=== PATIENT | female | born 1960 | race Caucasian/White ===

== ENCOUNTER 2016-05-30 16:26 | Inpatient (IN) | payer MEDICAID ==
[~2016-05-30] VITALS: Ht 157.5 cm; Wt 76.2 kg
[~2016-05-30 16:26] MED LIST: ACHD5005 PO; ALBUNEBRX NEB; ASP81CT PO; ASP81TEC PO; ATOR20TA66 PO; ATOR40TA70 PO; Aspirin PO; BUDE6HFA IH; BUSP15TA60 PO; CITA20TA7 PO; CLON0.1T PO; CLOP75TA28 PO; DICY10CA12 PO; DOCU-143 PO; ESZO1TAB11 PO; GABA-488 PO; GBPN100C PO; GLYB5TAB6 PO; HYDR-2856 PO; HYDR-34 PO; HYOS0.1216 PO; IBP800T PO; IBUP800T26 PO; INSU100I17 SQ; INSU300I SC; LEVE1U SQ; LEVO500T69 PO; LISI-594 PO; LORA10TA7 PO; LOVA20TA2 PO; MAGN400T39 PO; METO50TA2 PO; MTF500T PO; MTP50T PO; NAPR-243 PO; NITR0.4T3 SL; NTR.4SL SL; OMG1KC PO; ONDA-42 SL; PNT40TEC PO; POTA-51 PO; PRD20T PO; PRM25T PO; RT-ALBUINH IH; SIMV20TA3 PO; TICA90TA PO
--- OUTSIDE RECORDS SUMMARY | 2016-05-30 16:54 | XMS REPORT | Continuity of Care Document ---
[facility] Address Unknown Phone Unavailable Care Team Providers Care Tool Keeper Name Role Phone PCP Unavailable Source Comments Some departments are not documenting in the electronic medical record. If you do not see the information that you expected, contact Release of Information in the Health Information Management department at [phone] for further assistance in locating additional records.[facility] Active Allergies and Adverse Reactions Not on File Current Medications Not on file Active Problems Not on file Social History Tobacco Use Types Packs/Day Years Used Date Never Assessed Plan of Care Date Type Specialty Providers Description 08/12/2016 Appointment Neurology Mey Purcell, SATISHBS [address] [facility] [address] [place] [address] [phone] (Fax) Health Maintenance Due Date Last Done Comments Hepatitis C Screening 1960 Physical (Comprehensive) 1965 Exam Pertussis Vaccine 1969 Tetanus Vaccine 10/11/1975 Cervical Cancer Screening 10/11/1979 Breast Cancer Screening 1998 Colorectal Cancer 2008 Screening Influenza Vaccine 01/24/2016 Results from Last 3 Months Not on file
[2016-05-30 16:57] VITALS: BP 151/63
[2016-05-30] MEDS ORDERED: cefTRIAXone INJECTION 1,000 MG in NORMAL SALINE (BAXTER MINI) 50 ML IV SCH (17:30)
[2016-05-30] MEDS ORDERED: LEVOFLOXACIN 750 MG/150 ML IV 150 ML IV SCH (17:30)
--- NOTE | 2016-05-30 17:44 | Cardiology History & Physical ---
HPI-Cardiology Cardiology Consultation Date of Consultation 05/30/16 Date of Admission Indication: shortness of breath, generalized weakness HPI 55-year-old lady with history of coronary artery disease, had a cardiac catheterization in 2012 with a stent to the LAD, small vessel disease distally. No follow-up was made. Patient reported having a stroke 2 years ago and hospitalized in [place] with residual weakness on the left side. Brought to the emergency room in [facility] with increasing weakness for the last 2 weeks she has been having shortness of breath, continuous cough productive, had one episode of diaphoresis and chills. Denied any chest pain, denied any pedal edema, denied any palpitation, has been having generalized weakness and multiple falls. Workup in [facility] showed significantly elevated BNP and elevated troponin level, enlarged heart on her chest x-ray, I was called for evaluation and I accepted the patient. Upper my evaluation she was laying in bed, having continuous cough, not in severe distress but appeared uncomfortable, asking to go home as soon as possible. Denied any active pain. PMH-Cardiology Immunizations Up To Date Tetanus Booster (DTap): Less than 5yrs Date of Pneumonia Vaccine: Jan 24, 2008 Date of Influenza Vaccine: Mar 02, 2013 Seasonal Allergies Seasonal Allergies: No Surgeries HX Surgeries: Yes (CARDIAC CATH X 3, heel spurs, carpal tunnel) Surgeries: Hysterectomy, Section Respiratory Hx Respiratory Disorders: Yes Cardiovascular Hx Cardiovascular Disorders: Yes (MITRAL VALVE PROLAPSE, CARDIAC CATH X 3) Cardiac Disorders: Hypertension Neurological Hx Neurological Disorders: Yes Neurological Disorders: Seizure Disorder, Stroke, TIA Reproductive System Hx Reproductive Disorders: No Genitourinary Hx Genitourinary Disorders: No Gastrointestinal Hx Gastrointestinal Disorders: No Musculoskeletal Hx Musculoskeletal Disorders: Yes Musculoskeletal Disorders: Arthritis Endocrine Hx Endocrine Disorders: Yes Endocrine Disorders: Diabetes, Insulin dep HEENT HX ENT Disorders: Yes (WEARS GLASSES) Loss of Vision: Bilateral Hearing Impairment: Denies Cancer Hx Cancer: No Psychosocial Hx Psychiatric Problems: Yes Behavioral Health Disorders: Anxiety, Depression Integumentary HX Skin/Integumentary Disorder: No Blood Transfusions Hx Blood Disorders: No Adverse Reaction to a Blood Tr: No Other PMHx Other PMHx: past medical history as discussed below Social History Patient Social History Marrital Status: Employed/Student: unemployed Alcohol Use: Denies Use Recreational Drug Use: No Smoking: Current every day smoker Recent Foreign Travel: No Contact w/other who traveled: No Recent Infectious Disease Expo: No Family Hx Significant Family History: No Pertinent Family Hx Family History: Cancer 03 MOTHER (BREAST REMOVED) Congestive heart failure 03 MOTHER Family history: Cardiovascular disease 03 MOTHER Family history: Diabetes mellitus 03 MOTHER Family history: Hypertension 03 MOTHER 09 BROTHER History of - disorder 09 SISTER (HEART MURMUR) Hypercholesterolemia 03 MOTHER Stroke 03 FATHER, Onset:76 (ANEURYSM) ROS-Cardiology Review of Systems General: Chills Night Sweats Fatigue MalaiseNo Appetite HEENT: No Head Aches, No Visual Changes, No Eye Pain, No Ear Pain, No Dysphasia , No Sinus Congestion, No Post Nasal Drip, No Sore Throat Pulmonary: Dyspnea CoughNo Pleuritic Chest Pain Cardiovascular: : Lt HeadednessNo: Chest Pain, Edema, Orthopnea, Palpitations, Paroxysmal Noc. Dyspnea Gastrointestinal: : NauseaNo: Abdominal Pain, Constipation, Diarrhea, Hematochezia, Melena, Vomiting Genitourinary: No Dysuria, No Frequency, No Incontinence, No Hematuria, No Retention Musculoskeletal: : arm pain: neck painNo: back pain, foot pain, hand pain, leg pain, shoulder pain Neurological: : Weakness (on the left side of her face and left arm and leg at least for the last 2 years)No: Change in speech, Confusion, Incoordination, Numbness, Seizures Home Medications & Allergies Allergies: Coded Allergies: clarithromycin (Verified Allergy, Unknown, 05/24/16) iodine (Verified Allergy, Unknown, 05/24/16) metformin (Verified Adverse Reaction, Unknown, 05/24/16) STATES CAUSES DIARRHEA Uncoded Allergies: TAPE (Allergy, Unknown, 04/26/14) Home Medication List Reviewed: Yes Exam-Cardiology Vital Signs Vital Signs Date Time Temp Pulse Resp B/P Pulse Ox O2 Delivery O2 Flow Rate FiO2 05/30/16 17:11 93 Nasal Cannula 4.00 Exam General Appearance: Alert, Oriented X3, Cooperative, No Acute Distress HEENT: Atraumatic, PERRLA Respiratory: Normal Air Movement, Other (bilateral wet rales) Cardiovascular: Regular Rate, Normal S1, Normal S2, Other (systolic murmur at the left sternal border) Abdominal: Normal Bowel Sounds, Soft, No Tenderness, No Hepatosplenomegaly, No Masses Extremities: No Clubbing, No Cyanosis, No Edema, Normal Pulses, No Tenderness/ Swelling Skin: No Rashes, No Breakdown, No Significant Lesion Neuro: Normal Gait, Normal Speech, Strength at 5/5 X4 Ext, Normal Tone, Sensation Intact Psych/Mental Status: Mental Status NL, Mood NL Results Labs Labs labs from [facility] were reviewed, I reordered all her labs A/P-Cardiology Admission Diagnosis Non-ST elevation myocardial infarction Coronary artery disease Congestive heart failure Hypotension Assessment/Plan Non-ST elevation myocardial infarction, history of cardiac catheterization done in March 2013, had 80 percent stenosis in the mid LAD, had mini vision bare metal stent 2.0 mm expanded to 2.1 mm with good results, distal LAD has 60-70 percent stenosis small artery not amendable to intervention, right coronary artery has 70-80 percent stenosis at the midportion small artery, circumflex artery had mild disease. Treated medically, no follow-up was made, did not return to the office for follow-up. I will start aspirin and Lovenox, evaluate lipid profile. Evaluate echocardiogram. Questionable congestive heart failure, elevated BNP, bilateral wet rales. I will reevaluate chest x-ray, evaluate echocardiogram, consideration for beta blockers and Alfredo inhibitors based on the findings. Cough, productive, no leukocytosis on [place] records. I will start on pneumonia protocol with antibiotic, discussed with Dr. García who will assume care from medical standpoint Hypertension, had transient episode of hypotension required Levophed in the emergency room, currently blood pressure is stable continue to monitor and adjust medication as needed Hyperlipidemia, was on statin, which will be restarted. I will evaluate lipid profile History of CVA in the remote past and another stroke occurred in July 2014 hospitalized in [place], had residual left sided facial numbness and weakness on the left arm and left leg. Started on aspirin, continue to monitor at this time. Diabetes mellitus, has been followed and managed by primary care physician. Anemia, monitor H&H. Started on Protonix and I will evaluate CBC. Tobaccoism, patient is an active smoker, educated on smoking cessation. Generalized weakness and loss of energy. Clinical Quality Measures DVT/VTE Risk/Contraindication: Risk Factor Score Per Nursin RFS Level Per Nursing on Admit: 2=Moderate GAGAN NELSON MD May 30, 2016 17:44
[2016-05-30] MEDS ORDERED: CATHETER FLUSH 10 ML SYR IV PRN (17:45)
[2016-05-30] MEDS ORDERED: ASPIRIN 325 MG (5 GR) TABLET PO NR (17:45)
[2016-05-30] MEDS ORDERED: INSU300I SC (17:48)
[2016-05-30] MEDS ORDERED: FLU TRIvalent (5 YOA+) 2016-17 (AFLURIA) 0.5 ML IM ONE (18:00)
[2016-05-30 18:18] LABS: BASOPHILS % (AUTO) 0 % (0-10); EOSINOPHILS % (AUTO) 1 % (0-10); LYMPHOCYTES # (AUTO) 1.5 X 10^3 (1.0-4.0); LYMPHOCYTES % (AUTO) 29 % (12-44); MEAN CORPUSCULAR HEMOGLOBIN 28 PG (25-34); MEAN CORPUSCULAR HGB CONC 33 G/DL (32-36); MEAN CORPUSCULAR VOLUME 84 FL (80-99); MEAN PLATELET VOLUME 11.2 FL (7.4-10.4); MONOCYTES # (AUTO) 0.4 X 10^3 (0.0-1.0); MONOCYTES % (AUTO) 8 % (0-12); NEUTROPHILS # (AUTO) 3.3 X 10^3 (1.8-7.8); NEUTROPHILS % (AUTO) 62 % (42-75); PLATELET COUNT 177 10^3/uL (130-400); RED BLOOD COUNT 3.62 10^6/uL (4.35-5.85); RED CELL DISTRIBUTION WIDTH 15.1 % (10.0-14.5); WHITE BLOOD COUNT 5.3 10^3/uL (4.3-11.0)
[2016-05-30 18:34] LABS: ANION GAP 8 MMOL/L (5-14); BLOOD UREA NITROGEN 13 MG/DL (7-18); BUN/CREATININE RATIO 14; CALCIUM 7.8 MG/DL (8.5-10.1); CARBON DIOXIDE 31 MMOL/L (21-32); CHLORIDE 95 MMOL/L (98-107); CREATININE SERUM 0.93 MG/DL (0.60-1.30); GFR ESTIMATED > 60; GLUCOSE 205 MG/DL (70-105); POTASSIUM 3.3 MMOL/L (3.6-5.0); SODIUM 134 MMOL/L (135-145)
[2016-05-30 18:43] LABS: TROPONIN I 1.06 NG/ML (<0.30)
--- NOTE | 2016-05-30 18:50 | Diagnostic Imaging Report ---
INDICATION: Short of air. FINDINGS: Two views show cardiomegaly with mild pulmonary venous distention. There are several Liz B-lines present which may be related to mild interstitial edema. There is no effusion or pneumothorax. IMPRESSION: There is cardiomegaly with mild vascular congestion. There has developed some interstitial infiltrate since the prior exam from 03/28/16. This could be due to mild fluid overload. Recommend followup. Dictated by: Dictated on workstation # [id number]
[2016-05-30] MEDS: ENOXAPARIN 80 MG/0.8 ML (LOVENOX) SYR SC SCH (18:57)
[2016-05-30 19:00] VITALS: BP 154/86
[2016-05-30 20:00] VITALS: BP 135/105
[2016-05-30] MEDS ORDERED: RT-ALBUTEROL SULF 2.5 MG/3 ML PRE-MIX VIAL INH PRN (20:15)
[2016-05-30 21:00] VITALS: BP 129/60
[2016-05-30] MEDS: GABAPENTIN 300 MG (NEURONTIN) CAP PO SCH (21:35)
[2016-05-30] MEDS: busPIRone 15 MG (BUSPAR) TABLET PO SCH (21:35)
[2016-05-30] MEDS: CATHETER FLUSH 10 ML SYR IV SCH (21:35)
[2016-05-30 22:00] VITALS: BP 140/61
[2016-05-30] MEDS: POTASSIUM CL 10MEQ/50ML IVPB 50 ML IV SCH ×2 (22:03→22:36)
[2016-05-30 23:00] VITALS: BP 121/75
[2016-05-30] MEDS ORDERED: ALPRAZolam 0.25 MG (XANAX) TAB PO ONE (23:00)
[2016-05-30] MEDS ORDERED: QUEtiapine 25 MG (SEROquel) TAB IMMEDIATE RELEASE PO SCH (23:00)
[2016-05-30] MEDS ORDERED: MELATONIN 3 MG TABLET PO ONE (23:00)
[2016-05-31] VITALS (13 sets, daily range): BP systolic 88–160; BP diastolic 57–100
[2016-05-31 04:40] LABS: BASOPHILS % (AUTO) 0 % (0-10); EOSINOPHILS # (AUTO) 0.1 10^3/uL (0.0-0.3); EOSINOPHILS % (AUTO) 2 % (0-10); LYMPHOCYTES # (AUTO) 2.3 X 10^3 (1.0-4.0); LYMPHOCYTES % (AUTO) 42 % (12-44); MEAN CORPUSCULAR HEMOGLOBIN 28 PG (25-34); MEAN CORPUSCULAR HGB CONC 33 G/DL (32-36); MEAN CORPUSCULAR VOLUME 85 FL (80-99); MEAN PLATELET VOLUME 11.8 FL (7.4-10.4); MONOCYTES # (AUTO) 0.4 X 10^3 (0.0-1.0); MONOCYTES % (AUTO) 8 % (0-12); NEUTROPHILS # (AUTO) 2.7 X 10^3 (1.8-7.8); NEUTROPHILS % (AUTO) 48 % (42-75); PLATELET COUNT 204 10^3/uL (130-400); RED BLOOD COUNT 3.39 10^6/uL (4.35-5.85); RED CELL DISTRIBUTION WIDTH 15.2 % (10.0-14.5); WHITE BLOOD COUNT 5.5 10^3/uL (4.3-11.0)
[2016-05-31 05:11] LABS: ALANINE AMINOTRANSFERASE 11 U/L (0-55); ALBUMIN 2.8 G/DL (3.2-4.5); ANION GAP 11 MMOL/L (5-14); ASPARTATE AMINO TRANSFERASE 28 U/L (5-34); BILIRUBIN,TOTAL 0.4 MG/DL (0.1-1.0); BLOOD UREA NITROGEN 12 MG/DL (7-18); BUN/CREATININE RATIO 14; CALCIUM 8.3 MG/DL (8.5-10.1); CARBON DIOXIDE 30 MMOL/L (21-32); CHLORIDE 100 MMOL/L (98-107); CREATININE SERUM 0.85 MG/DL (0.60-1.30); GFR ESTIMATED > 60; GLUCOSE 94 MG/DL (70-105); MAGNESIUM 1.6 MG/DL (1.8-2.4); PHOSPHORUS 4.1 MG/DL (2.3-4.7); POTASSIUM 3.1 MMOL/L (3.6-5.0); SODIUM 141 MMOL/L (135-145); TOTAL PROTEIN 5.7 G/DL (6.4-8.2)
[2016-05-31 05:22] LABS: TROPONIN I 1.07 NG/ML (<0.30)
[2016-05-31] MEDS: CATHETER FLUSH 10 ML SYR IV SCH (05:50)
[2016-05-31] MEDS: MAGNESIUM 1 GM/100 ML IVPB 100 ML IV SCH ×2 (05:51→07:22)
[2016-05-31] MEDS: POTASSIUM CL 10MEQ/50ML IVPB 50 ML IV SCH ×4 (05:51→09:33)
[2016-05-31] MEDS: ENOXAPARIN 80 MG/0.8 ML (LOVENOX) SYR SC SCH (05:51)
[2016-05-31] MEDS ORDERED: POTASSIUM CL 10MEQ/50ML IVPB 50 ML IV SCH (06:00)
[2016-05-31] MEDS ORDERED: MAGNESIUM 1 GM/100 ML IVPB 100 ML IV SCH (06:00)
[2016-05-31] MEDS ORDERED: KCL 20 MEQ TAB (K-DUR) PO SCH (06:00)
[2016-05-31] MEDS ORDERED: PANTOPRAZOLE 40 MG (PROTONIX) TAB PO SCH (07:00)
[2016-05-31] MEDS ORDERED: ASPIRIN 325 MG (5 GR) TABLET PO SCH (09:00)
[2016-05-31] MEDS ORDERED: MAGNESIUM OXIDE (MAG-OX)400 MG TAB PO SCH (09:00)
[2016-05-31] MEDS ORDERED: lisINopril 5 MG (PRINIVIL) TABLET PO SCH (09:00)
[2016-05-31] MEDS: GABAPENTIN 300 MG (NEURONTIN) CAP PO SCH (09:28)
[2016-05-31] MEDS: busPIRone 15 MG (BUSPAR) TABLET PO SCH (09:28)
--- NOTE | 2016-05-31 10:23 | Cardiology Progress Note ---
Subjective Subjective/Events-last exam Patient is laying down in bed, still having cough and some shortness of breath, asking to go home, had a long discussion with her and her regarding her current treatment course, patient had elevated troponin level, nondiagnostic EKG changes. She has extensive cardiac history, she will need to have a cardiac catheterization done Review of Systems General: No Chills, No Night Sweats, No Fatigue, No Malaise, No Appetite, No Other HEENT: No Head Aches, No Visual Changes, No Eye Pain, No Ear Pain, No Dysphasia , No Sinus Congestion, No Post Nasal Drip, No Sore Throat, No Other Pulmonary: Dyspnea CoughNo Pleuritic Chest Pain, No Other Cardiovascular: No: Chest Pain, Edema, Lt Headedness, Orthopnea, Other, Palpitations, Paroxysmal Noc. Dyspnea Objective-Cardiology Exam Last Set of Vital Signs Vital Signs 05/30/16 05/31/16 05/31/16 05/31/16 23:00 06:00 07:00 08:00 Pulse 57 Resp 20 B/P 157/68 Pulse Ox 99 O2 Delivery Nasal Cannula O2 Flow Rate 3.50 Capillary Refill : I&O Bad tableGeneral: Alert, Oriented X3, Cooperative, No Acute Distress HEENT: Atraumatic, PERRLA Lungs: Normal Air Movement, Other (bilateral wet rales) Heart: Regular Rate, Normal S1, Normal S2, Other (systolic murmur at the left sternal border) Abdomen: Normal Bowel Sounds, Soft, No Tenderness, No Hepatosplenomegaly, No Masses Extremities: No Clubbing, No Cyanosis, No Edema, Normal Pulses, No Tenderness/ Swelling Skin: No Rashes, No Breakdown, No Significant Lesion Neuro: Normal Gait, Normal Speech, Strength at 5/5 X4 Ext, Normal Tone, Sensation Intact Psych/Mental Status: Mental Status NL, Mood NL Results Lab Laboratory Tests 05/30/16 18:03 05/31/16 03:54 A/P-Cardiology Admission Diagnosis Non-ST elevation myocardial infarction Coronary artery disease Congestive heart failure Hypotension Assessment/Plan Non-ST elevation myocardial infarction, history of cardiac catheterization done in March 2013, had 80 percent stenosis in the mid LAD, had mini vision bare metal stent 2.0 mm expanded to 2.1 mm with good results, distal LAD has 60-70 percent stenosis small artery not amendable to intervention, right coronary artery has 70-80 percent stenosis at the midportion small artery, circumflex artery had mild disease. Persistent elevation in troponin, discussed the management plan, I recommended cardiac catheterization possible PTCA. Patient prefer to wait. Congestive heart failure, elevated BNP, acute decompensated left ventricular diastolic dysfunction, normal systolic function, I'll give her additional Lasix , monitor intake and output closely. Cough, productive, no leukocytosis on [place] records, started on pneumonia protocol, chest x-ray showed increased vascular markings bilaterally. Awaiting official report Hypertension, had transient episode of hypotension required Levophed in the emergency room, elevated blood pressure at this time, I will start low-dose beta blockers. Hyperlipidemia, was on statin, which will be restarted. I will evaluate lipid profile History of CVA in the remote past and another stroke occurred in July 2014 hospitalized in [place], had residual left sided facial numbness and weakness on the left arm and left leg. Started on aspirin, continue to monitor at this time. Diabetes mellitus, has been followed and managed by primary care physician. Anemia, monitor H&H, started on protonix Tobaccoism, patient is an active smoker, educated on smoking cessation. Generalized weakness and loss of energy. Addendum, I was called to the floor patient asking to sign AGAINST MEDICAL ADVICE, explained to her in length the importance of staying in the hospital, she insisted on leaving, agreed on taking prescription for antibiotic at least. Advised her to call me if she needed any further assistance and advised her that I am conventional mortgage underwriter for the weekend. Clinical Quality Measures DVT/VTE Risk/Contraindication: Risk Factor Score Per Nursin RFS Level Per Nursing on Admit: 2=Moderate GAGAN NELSON MD May 31, 2016 10:23 am Lymphocytes (%) (Auto) 29 42 12-44 % Mean Corpuscular Hemoglobin 28 28 25-34 PG Mean Corpuscular Hemoglobin Concent 33 33 32-36 G/DL Mean Corpuscular Volume 84 85 80-99 FL Mean Platelet Volume 11.2 H 11.8 H 7.4-10.4 FL Monocytes # (Auto) 0.4 0.4 0.0-1.0 X 10^3 Monocytes (%) (Auto) 8 8 0-12 % Neutrophils # (Auto) 3.3 2.7 1.8-7.8 X 10^3 Neutrophils (%) (Auto) 62 48 42-75 % Platelet Count 177 204 130-400 10^3/uL Potassium Level 3.3 L 3.1 L 3.6-5.0 MMOL/L Red Blood Count 3.62 L 3.39 L 4.35-5.85 10^6/uL Red Cell Distribution Width 15.1 H 15.2 H 10.0-14.5 % Sodium Level 134 L 141 135-145 MMOL/L Troponin I 1.06 *H 1.07 *H <0.30 NG/ML White Blood Count 5.3 5.5 4.3-11.0 10^3/uL Alanine Aminotransferase (ALT/SGPT) 11 0-55 U/L Albumin 2.8 L 3.2-4.5 G/DL Alkaline Phosphatase 60 40-136 U/L Aspartate Amino Transf (AST/SGOT) 28 5-34 U/L B-Type Natriuretic Peptide 950.7 H <100.0 PG/ML Magnesium Level 1.6 L 1.8-2.4 MG/DL Phosphorus Level 4.1 2.3-4.7 MG/DL Total Bilirubin 0.4 0.1-1.0 MG/DL Total Protein 5.7 L 6.4-8.2 G/DL A/P-Cardiology Admission Diagnosis Non-ST elevation myocardial infarction Coronary artery disease Congestive heart failure Hypotension Assessment/Plan Non-ST elevation myocardial infarction, history of cardiac catheterization done in March 2013, had 80 percent stenosis in the mid LAD, had mini vision bare metal stent 2.0 mm expanded to 2.1 mm with good results, distal LAD has 60-70 percent stenosis small artery not amendable to intervention, right coronary artery has 70-80 percent stenosis at the midportion small artery, circumflex artery had mild disease. Persistent elevation in troponin, discussed the management plan, I recommended cardiac catheterization possible PTCA. Patient prefer to wait. Congestive heart failure, elevated BNP, acute decompensated left ventricular diastolic dysfunction, normal systolic function, I'll give her additional Lasix , monitor intake and output closely. Cough, productive, no leukocytosis on [place] records, started on pneumonia protocol, chest x-ray showed increased vascular markings bilaterally. Awaiting official report Hypertension, had transient episode of hypotension required Levophed in the emergency room, elevated blood pressure at this time, I will start low-dose beta blockers. Hyperlipidemia, was on statin, which will be restarted. I will evaluate lipid profile History of CVA in the remote past and another stroke occurred in July 2014 hospitalized in [place], had residual left sided facial numbness and weakness on the left arm and left leg. Started on aspirin, continue to monitor at this time. Diabetes mellitus, has been followed and managed by primary care physician. Anemia, monitor H&H, started on protonix Tobaccoism, patient is an active smoker, educated on smoking cessation. Generalized weakness and loss of energy. Clinical Quality Measures DVT/VTE Risk/Contraindication: Risk Factor Score Per Nursin RFS Level Per Nursing on Admit: 2=Moderate GAGAN NELSON MD May 31, 2016 10:23
[2016-05-31] MEDS ORDERED: FUROSEMIDE 40 MG/4 ML INJ (LASIX) IVP ONE (10:30)
--- NOTE | 2016-05-31 11:13 | Diagnostic Imaging Report ---
INDICATION: COPD exacerbation. TECHNIQUE: Single view chest 5:42 a.m. CORRELATION STUDY: 05/30/2016. FINDINGS: Heart size and pulmonary vasculature have increased from prior study compatible with fluid overload or failure. Prominent interstitial markings compatible with edema is also present. No definitive focal infiltrate. IMPRESSION: 1. Features of congestive heart failure appearing adversely changed from prior study. Dictated by: Dictated on workstation # [id number]
[2016-05-31] MEDS ORDERED: ASPI-808 PO (11:21)
[2016-05-31] MEDS ORDERED: LEVO750T9 PO (11:21)
--- NOTE | 2016-05-31 11:24 | Clinic Account Progress/Dx ---
Clinic Account Progress/Dx DIAGNOSIS: Diagnosis Non-ST elevation myocardial infarction Acute congestive heart failure, left ventricular diastolic dysfunction Hypertension Shortness of breath Tobaccoism Patient signed AGAINST MEDICAL ADVICE GAGAN NELSON MD May 31, 2016 11:23 am
[2016-05-31] MEDS ORDERED: FUROSEMIDE 40 MG/4 ML INJ (LASIX) IVP SCH (17:00)
--- NOTE | 2016-06-01 15:07 | ECHOCARDIOGRAPHY REPORT ---
PROCEDURE PHYSICIAN: GAGAN NELSON DATE OF PROCEDURE: 05/30/2016 TWO DIMENSIONAL ECHOCARDIOGRAM REPORT PRIMARY PHYSICIAN: OTHER PHYSICIAN: REFERRING PHYSICIAN: Chloe Stanley APRN and Dr. Alda Garrido ORDERING PHYSICIAN: INDICATION FOR THE PROCEDURE: Congestive heart failure. MEASUREMENTS DERIVED VALUES LV DIAMETER (LAX) NORMALS NORMALS Diastolic 4.7 (3.6-5.2) Eject. Fract. 60% (60%+/-6%) Systolic (2.3-3.9) Diastolic Vol. % Shortening (0.22-0.42) Systolic Vol. Aortic Root IVS THICKNESS Diastolic 1 (0.6-1.1) LVPW THICKNESS Diastolic 1 (0.6-1.1) LA DIAMETER Systolic 3.5 (2.1-3.7) FINDINGS: 1. Technical quality is good. 2. The left ventricle is normal in size with normal contractility. Systolic function appeared to be normal. Estimated ejection fraction 60%. Diastolic dysfunction is suggested by Doppler. 3. The left atrium is normal in size. No clot or thrombus were seen within the left atrium. 4. The right atrium and right ventricle are normal in size. No clot or thrombus were seen within the right side. 5. Mitral valve is calcified with moderate to moderately severe mitral regurgitation noted by color Doppler flow. No mitral valve prolapse. No mitral valve stenosis. 6. Aortic valve is trileaflet with normal, calcified valve with normal opening and closing pattern. No significant aortic valve stenosis or regurgitation was seen. 7. Tricuspid valve is normal in morphology with mild tricuspid regurgitation noted by color Doppler flow. Doppler across tricuspid valve estimated pulmonary artery pressure of 45+ right atrial pressure. 8. Pulmonic valve is functioning normally. 9. No pericardial effusion. IN CONCLUSION: 1. Normal left ventricular size and systolic function. Estimated ejection fraction 60%. Diastolic dysfunction is suggested by Doppler. 2. Moderate to moderately severe mitral regurgitation, mild tricuspid regurgitation. 3. Aortic valve sclerosis. No aortic stenosis. 4. Estimated pulmonary artery pressure of 55 mmHg. Job ID: [id number] Dictated Date: 05/30/2016 19:31:38 Exercise Instructor Date: 06/01/2016 14:55:37 / tbk
== END 2016-05-31 11:45 | disposition left against medical advice (07) | DRG 280 ==
LOC: ICU 16:50
PROVIDERS: ADMIT Internal Medicine Cardiovascular Disease; ATTEND Internal Medicine Cardiovascular Disease
DX: I21.4 Non-ST elevation (NSTEMI) myocardial infarction (principal); I25.10 Atherosclerotic heart disease of native coronary artery without angina pectoris; Z95.5 Presence of coronary angioplasty implant and graft; I11.0 Hypertensive heart disease with heart failure; I50.31 Acute diastolic (congestive) heart failure; I69.354 Hemiplegia and hemiparesis following cerebral infarction affecting left non-dominant side; E11.9 Type 2 diabetes mellitus without complications; Z79.4 Long term (current) use of insulin; E78.5 Hyperlipidemia, unspecified; F17.210 Nicotine dependence, cigarettes, uncomplicated; D64.9 Anemia, unspecified; G40.909 Epilepsy, unspecified, not intractable, without status epilepticus
CPT/HCPCS: 36415; 71010; 71020; 80048; 80053; 83605; 83735; 83880; 84100; 84484; 85025; 85027; 87040; 87081; 93005; 93306

== ENCOUNTER → 2016-07-03 | Outpatient (CLI) | payer MEDICAID ==
[~2016-07-03] MED LIST changes: +ASPI-808 PO; +LEVO750T9 PO
--- OUTSIDE RECORDS SUMMARY | 2016-07-03 12:46 | XMS REPORT | Continuity of Care Document ---
Author Author [facility] Organization [facility] Address Unknown Phone Unavailable Care Team Providers Care Interlibrary Loan Services Librarian Name Role Phone PCP Unavailable Source Comments Some departments are not documenting in the electronic medical record. If you do not see the information that you expected, contact Release of Information in the Health Information Management department at [phone] for further assistance in locating additional records.[facility] Active Allergies and Adverse Reactions Not on File Current Medications Not on file Active Problems Not on file Social History Tobacco Use Types Packs/Day Years Used Date Never Assessed Plan of Care Date Type Specialty Providers Description 08/12/2016 Appointment Neurology Mey Purcell, SATISHBS [address] [facility] [address] [place] [address] [phone] (Fax) Health Maintenance Due Date Last Done Comments Hepatitis C Screening 1958 Physical (Comprehensive) 1965 Exam Pertussis Vaccine 1969 Tetanus Vaccine 10/11/1975 Cervical Cancer Screening 10/11/1979 Breast Cancer Screening 1998 Colorectal Cancer 2008 Screening Influenza Vaccine 01/24/2016 Results from Last 3 Months Not on file
--- NOTE | 2016-07-03 17:14 | Diagnostic Imaging Report ---
INDICATION: Left chest pain anteroinferiorly of three weeks' duration, no known injury. FINDINGS: There is a slightly displaced fracture of the anterolateral aspect of the left eighth rib. Fracture lucency is well visualized, presumed acute to subacute. No other rib abnormality. The left lung and pleura are unremarkable. No free air beneath the left diaphragm. IMPRESSION: Unhealed left eighth rib fracture anterolaterally, likely acute to subacute. No other osseous chest wall pathology. Dictated by: Dictated on workstation # [id number]
== END ==
LOC: RAD 12:28
PROVIDERS: ATTEND Nurse Practitioner Family
DX: R07.81 Pleurodynia (principal)
CPT/HCPCS: 71100

== ENCOUNTER 2016-11-27 21:41 | Emergency (ER) | payer MEDICAID ==
[~2016-11-27] VITALS: Ht 157.5 cm; Wt 76.4 kg
--- NOTE | 2016-11-27 22:27 | ED General ---
General Chief Complaint: General Problems/Pain Stated Complaint: GENERAL WEAKNESS X3 DAYS Nursing Triage Note: c/o generalized weakness starting this morning. patient reports she hasn't been eating as the food that is cooked for her isn't fit to eat Nursing Sepsis Screen: No Definite Risk History of Present Illness Time Seen by Provider: 22:00 Initial Comments Patient presents with generalized weakness and feeling wobbly on her legs started this morning. She has poor appetite but she equates that to her son's girlfriend's cooking that she refuses to eat. She did not want to go see her own doctor at [facility] and rather she wanted to come here to be worked up. She is out of pain, shortness of breath, chest pain, rash, fever, nausea, vomiting, diarrhea, consultation. She states been 2 days she's had a bowel movement but does not want anything for that. She does not want stay in the hospital to find out why she feels so poorly. Allergies and Home Medications Allergies Coded Allergies: clarithromycin (Verified Allergy, Unknown, 05/24/16) iodine (Verified Allergy, Unknown, 05/24/16) metformin (Verified Adverse Reaction, Unknown, 05/24/16) STATES CAUSES DIARRHEA Uncoded Allergies: TAPE (Allergy, Unknown, 04/26/14) Home Medications Albuterol Sulfate 1 Puff Puff, 2 PUFF IH Q4H PRN for COUGH/WHEEZING, (Reported) PALS PROGRAM Aspirin 325 Mg Tablet, 325 MG PO DAILY, #30 Ref 4 Prescribed by: GAGAN NELSON on 05/31/16 1121 Buspirone HCl 15 Mg Tablet, 15 MG PO BID, #45 (Reported) Citalopram Hydrobromide 20 Mg Tablet, 20 MG PO DAILY, #30 (Reported) Clonidine HCl 0.1 Mg Tablet, 0.1 MG PO BID, #56 (Reported) Dicyclomine HCl 10 Mg Capsule, 10 MG PO HS, #60 (Reported) Gabapentin 300 Mg Capsule, 600 MG PO TID, (Reported) 04-21-14 #90 REPOSITORY Insulin Glargine,Hum.rec.anlog 300 Unit/1 Ml Insuln.pen, 16 UNITS SC HS, #5 Prescribed by: MARY SHARP on 05/30/16 4938 Levofloxacin 750 Mg Tablet, 750 MG PO DAILY, #7 Ref 0 Prescribed by: GAGAN NELSON on 05/31/16 1121 Lisinopril 5 Mg Tablet, 5 MG PO DAILY, (Reported) 05-09-14 #90 REPOSITORY Magnesium Oxide 400 Mg Tablet, 400 MG PO DAILY, #20 Prescribed by: GHULAM MCKEON on 02/19/16 1618 Potassium Chloride 20 Meq Tablet.er, 20 MEQ PO DAILY, #10 Prescribed by: GHULAM MCKEON on 02/19/16 1618 Sulfamethoxazole/Trimethoprim 1 Each Tablet, 1 EACH PO BID for 7 Days, #14 Ref 0 Prescribed by: YIMI CORTES on 11/28/16 0019 Constitutional: No chills, No diaphoresis, No fever, malaise EENTM: No ear discharge, No ear pain, No epistaxis, No hearing loss, No hoarseness, No mouth pain, No nose congestion, No nose pain Respiratory: No cough, No short of breath, No wheezing Cardiovascular: No chest pain, No edema, No palpitations, No syncope Gastrointestinal: No abdominal pain, No constipation, No diarrhea, No heartburn , loss of appetite, No nausea, No vomiting Genitourinary: No dysuria, No frequency, No hematuria Musculoskeletal: No back pain, No joint pain, No joint swelling Skin: No pruritus, No rash Past Bezzxlp-Jcydge-Gwmqux Hx Patient Social History Alcohol Use: Denies Use Recreational Drug Use: No Smoking Status: Current Everyday Smoker Type Used: Cigarettes Recent Foreign Travel: No Contact w/Someone Who Travel: No Recent Infectious Disease Expo: No Recent Hopitalizations: No Immunizations Up To Date Tetanus Booster (TDap): Less than 5yrs PED Vaccines UTD: No Date of Pneumonia Vaccine: Jan 24, 2008 Date of Influenza Vaccine: Mar 02, 2013 Seasonal Allergies Seasonal Allergies: No Surgeries HX Surgeries: Yes (CARDIAC CATH X 3, heel spurs, carpal tunnel) Surgeries: Section, Hysterectomy, Orthopedic Respiratory Hx Respiratory Disorders: Yes Respiratory Disorders: COPD Cardiovascular Hx Cardiac Disorders: Yes (MITRAL VALVE PROLAPSE, CARDIAC CATH X 3) Cardiac Disorders: Coronary Artery Disease Neurological Hx Neurological Disorders: Yes Neurological Disorders: Seizure Disorder, Stroke, TIA Reproductive System Hx Reproductive Disorders: No 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 Genitourinary Hx Genitourinary Disorders: No Gastrointestinal Hx Gastrointestinal Disorders: No Musculoskeletal Hx Musculoskeletal Disorders: Yes Musculoskeletal Disorders: Arthritis Endocrine Hx Endocrine Disorders: Yes Endocrine Disorders: Diabetes, Insulin dep HEENT HX ENT Disorders: Yes (WEARS GLASSES) Loss of Vision: Bilateral Hearing Impairment: Denies Cancer Hx Cancer: No Psychosocial Hx Psychiatric Problems: Yes Behavioral Health Disorders: Anxiety, Depression Integumentary HX Skin/Integumentary Disorder: No Blood Transfusions Hx Blood Disorders: No Adverse Reaction to a Blood Tr: No Family Medical History Significant Family History: No Pertinent Family Hx Family Medial History: Cancer 03 MOTHER (BREAST REMOVED) Congestive heart failure 03 MOTHER Family history: Cardiovascular disease 03 MOTHER Family history: Diabetes mellitus 03 MOTHER Family history: Hypertension 03 MOTHER 09 BROTHER History of - disorder 09 SISTER (HEART MURMUR) Hypercholesterolemia 03 MOTHER Stroke 03 FATHER, Onset:76 (ANEURYSM) Physical Exam Vital Signs Vital Sign - Last 12Hours 11/27/16 21:46 Temp 98.2 Pulse 82 Resp 18 B/P (MAP) 181/70 Pulse Ox 97 O2 Delivery Nasal Cannula O2 Flow Rate 2.00 Capillary Refill : Less Than 3 Seconds General Appearance: No Apparent Distress, WD/WN Eyes: Bilateral Eye EOMI, Bilateral Eye Normal Inspection, Bilateral Eye PERRL HEENT: PERRL/EOMI, Normal ENT Inspection, Pharynx Normal Neck: Full Range of Motion, Normal Inspection Respiratory: Chest Non Tender, Lungs Clear, Normal Breath Sounds Cardiovascular: Regular Rate, Rhythm, No Edema, No JVD, No Murmur Gastrointestinal: Normal Bowel Sounds, Non Tender, Soft Back: Normal Inspection, No CVA Tenderness Extremity: Normal Capillary Refill, Normal Inspection, Normal Range of Motion, Non Tender, No Pedal Edema Neurologic/Psychiatric: Alert, Oriented x3 Skin: Normal Color, Warm/Dry Lymphatic: No Adenopathy Progress/Results/Core Measures Results/Orders Lab Results Laboratory Tests Test 11/27/16 21:50 11/27/16 22:36 Range/Units White Blood Count 9.9 4.3-11.0 10^3/uL Red Blood Count 3.84 L 4.35-5.85 10^6/uL Hemoglobin 11.0 L 11.5-16.0 G/DL Hematocrit 32 L 35-52 % Mean Corpuscular Volume 82 80-99 FL Mean Corpuscular Hemoglobin 29 25-34 PG Mean Corpuscular Hemoglobin Concent 35 32-36 G/DL Red Cell Distribution Width 13.9 10.0-14.5 % Platelet Count 287 130-400 10^3/uL Mean Platelet Volume 11.6 H 7.4-10.4 FL Neutrophils (%) (Auto) 78 H 42-75 % Lymphocytes (%) (Auto) 13 12-44 % Monocytes (%) (Auto) 8 0-12 % Eosinophils (%) (Auto) 1 0-10 % Basophils (%) (Auto) 0 0-10 % Neutrophils # (Auto) 7.7 1.8-7.8 X 10^3 Lymphocytes # (Auto) 1.3 1.0-4.0 X 10^3 Monocytes # (Auto) 0.8 0.0-1.0 X 10^3 Eosinophils # (Auto) 0.1 0.0-0.3 10^3/uL Basophils # (Auto) 0.0 0.0-0.1 10^3/uL Sodium Level 136 135-145 MMOL/L Potassium Level 3.1 L 3.6-5.0 MMOL/L Chloride Level 101 98-107 MMOL/L Carbon Dioxide Level 24 21-32 MMOL/L Anion Gap 11 5-14 MMOL/L Blood Urea Nitrogen 12 7-18 MG/DL Creatinine 1.04 0.60-1.30 MG/DL Estimat Glomerular Filtration Rate 54 BUN/Creatinine Ratio 12 Glucose Level 251 H 70-105 MG/DL Calcium Level 8.9 8.5-10.1 MG/DL Magnesium Level 1.4 L 1.8-2.4 MG/DL Total Bilirubin 0.3 0.1-1.0 MG/DL Aspartate Amino Transf (AST/SGOT) 10 5-34 U/L Alanine Aminotransferase (ALT/SGPT) 11 0-55 U/L Alkaline Phosphatase 73 40-136 U/L Troponin I < 0.30 <0.30 NG/ML Total Protein 6.8 6.4-8.2 GM/DL Albumin 3.1 L 3.2-4.5 GM/DL Urine Color YELLOW Urine Clarity SLIGHTLY CLOUDY Urine pH 5 5-9 Urine Specific [place] 1.015 L 1.016-1.022 Urine Protein 4+ NEGATIVE Urine Glucose (UA) NEGATIVE NEGATIVE Urine Ketones NEGATIVE NEGATIVE Urine Nitrite POSITIVE H NEGATIVE Urine Bilirubin NEGATIVE NEGATIVE Urine Urobilinogen 1 NORMAL MG/DL Urine Leukocyte Esterase 3+ H NEGATIVE Urine RBC (Auto) 4+ H NEGATIVE Urine RBC 0-2 /HPF Urine WBC TNTC H /HPF Urine Squamous Epithelial Cells 5-10 /HPF Urine Crystals NONE /LPF Urine Bacteria LARGE H /HPF Urine Casts NONE /LPF Urine Mucus NEGATIVE /LPF Urine Culture Indicated YES My Orders Orders - YIMI CORTES Cbc With Automated Diff (11/27/16 22:27) Comprehensive Metabolic Panel (11/27/16 22:27) Magnesium (11/27/16 22:27) Troponin I (11/27/16 22:27) Ua Culture If Indicated (11/27/16 22:27) Chest 1 View, Ap/Pa Only (11/27/16 22:27) Urine Culture (11/27/16 22:36) Magnesium Oxide Tablet (Mag Ox Tablet) (11/28/16 00:30) Potassium Chloride (Tablet) (K Dur Table (11/28/16 00:30) Sulfamethoxazole/Trimet Ds Tab (Bactrim (11/28/16 00:30) Medications Given in ED Current Medications Medications Dose Ordered Sig/Pk Route Start Time Stop Time Status Last Admin Dose Admin Magnesium Oxide 400 mg ONCE ONCE PO 11/28/16 00:30 11/28/16 00:31 DC 11/28/16 00:32 400 MG Potassium Chloride 20 meq ONCE ONCE PO 11/28/16 00:30 11/28/16 00:31 DC 11/28/16 00:32 20 MEQ Trimethoprim/ Sulfamethoxazole 1 ea ONCE ONCE PO 11/28/16 00:30 11/28/16 00:31 DC 11/28/16 00:32 1 EA Vital Signs/I&O Vital Sign - Last 12Hours 11/27/16 11/28/16 21:46 00:35 Temp 98.2 Pulse 82 77 Resp 18 16 B/P (MAP) 181/70 Pulse Ox 97 91 O2 Delivery Nasal Cannula O2 Flow Rate 2.00 Blood Pressure Mean: 107 Progress Note : Time: 00:11 Progress Note Patient presents with non-specific complaint of weakness and malaise. She has a UTI on her UA as well as high blood glucose that may be contributing to this. Cardiac workup is unremarkable. ECG EKG : EKG Time: 21:58 Rate: 81 Rhythm: Normal Sinus Intervals: Normal ECG Comparisson: Unchanged ECG Impression: Nonspecific Changes Comment No ST wave aberration Diagnostic Imaging Diagonstic Imaging: Xray Plain Films/CT/US/NM/MRI: chest Comments No acute cardiopulmonary process noted. Reviewed: Reviewed by Me Departure Impression Impression: Primary Impression: UTI (urinary tract infection) Qualified Codes: N30.01 - Acute cystitis with hematuria Disposition: HOME, SELF-CARE Condition: Improved Departure-Patient Inst. Decision time for Depature: 00:17 Referrals: SUKHDEEP LIMA DO (PCP) Primary Care Physician TATY PURVIS (Family) Primary Care Physician Patient Instructions: Urinary Tract Infection, Adult (DC) Add. Discharge Instructions: Drink plenty of fluids and take your antibiotics twice daily with some food. If you're having worsening symptoms or fever or nausea and vomiting which can control, back to the ER. You should follow up Thursday with your primary care physician for the urine culture results. All discharge instructions reviewed with patient and/or family. Voiced understanding. Scripts Sulfamethoxazole/Trimethoprim (Bactrim Ds Tablet) 1 Each Tablet 1 EACH PO BID for 7 Days, #14 TAB 0 Refills Prov: YIMI CORTES 11/28/16 Copy Copies To 1: SUKHDEEP LIMA TITUS J Nov 27, 2016 22:27
[2016-11-27 22:34] LABS: BASOPHILS % (AUTO) 0 % (0-10); EOSINOPHILS # (AUTO) 0.1 10^3/uL (0.0-0.3); EOSINOPHILS % (AUTO) 1 % (0-10); LYMPHOCYTES # (AUTO) 1.3 X 10^3 (1.0-4.0); LYMPHOCYTES % (AUTO) 13 % (12-44); MEAN CORPUSCULAR HEMOGLOBIN 29 PG (25-34); MEAN CORPUSCULAR HGB CONC 35 G/DL (32-36); MEAN CORPUSCULAR VOLUME 82 FL (80-99); MEAN PLATELET VOLUME 11.6 FL (7.4-10.4); MONOCYTES # (AUTO) 0.8 X 10^3 (0.0-1.0); MONOCYTES % (AUTO) 8 % (0-12); NEUTROPHILS # (AUTO) 7.7 X 10^3 (1.8-7.8); NEUTROPHILS % (AUTO) 78 % (42-75); PLATELET COUNT 287 10^3/uL (130-400); RED BLOOD COUNT 3.84 10^6/uL (4.35-5.85); RED CELL DISTRIBUTION WIDTH 13.9 % (10.0-14.5); WHITE BLOOD COUNT 9.9 10^3/uL (4.3-11.0)
[2016-11-27 22:41] LABS: BILIRUBIN,URINE NEGATIVE (NEGATIVE); KETONES,URINE NEGATIVE (NEGATIVE); LEUKOCYTE ESTERASE ,URINE 3+ (NEGATIVE); NITRITE,URINE POSITIVE (NEGATIVE); PH,URINE 5 (5-9); PROTEIN,URINE 4+ (NEGATIVE); UROBILINOGEN,URINE 1 MG/DL (NORMAL)
[2016-11-27 22:45] LABS: ALANINE AMINOTRANSFERASE 11 U/L (0-55); ALBUMIN 3.1 GM/DL (3.2-4.5); ANION GAP 11 MMOL/L (5-14); ASPARTATE AMINO TRANSFERASE 10 U/L (5-34); BILIRUBIN,TOTAL 0.3 MG/DL (0.1-1.0); BLOOD UREA NITROGEN 12 MG/DL (7-18); BUN/CREATININE RATIO 12; CALCIUM 8.9 MG/DL (8.5-10.1); CARBON DIOXIDE 24 MMOL/L (21-32); CHLORIDE 101 MMOL/L (98-107); CREATININE SERUM 1.04 MG/DL (0.60-1.30); GFR ESTIMATED 54; GLUCOSE 251 MG/DL (70-105); MAGNESIUM 1.4 MG/DL (1.8-2.4); POTASSIUM 3.1 MMOL/L (3.6-5.0); SODIUM 136 MMOL/L (135-145); TOTAL PROTEIN 6.8 GM/DL (6.4-8.2)
[2016-11-27 22:51] LABS: TROPONIN I < 0.30 NG/ML (<0.30)
[2016-11-27 23:07] LABS: WBC,URINE TNTC /HPF
[2016-11-28] MEDS ORDERED: SULF1TAB35 PO (00:19)
[2016-11-28] MEDS ORDERED: KCL 20 MEQ TAB (K-DUR) PO ONE (00:30)
[2016-11-28] MEDS ORDERED: TRIM/SULFAMETH 160/800 (SEPTRA DS) TAB PO ONE (00:30)
[2016-11-28] MEDS ORDERED: MAGNESIUM OXIDE (MAG-OX)400 MG TAB PO ONE (00:30)
[2016-11-28 00:35] VITALS: BP 171/81
--- NOTE | 2016-11-28 07:06 | Diagnostic Imaging Report ---
INDICATION: Weakness. COMPARISON: None FINDINGS: Single frontal view of the chest is obtained. Heart size is normal. The pulmonary vessels appear unremarkable. There is no pneumothorax, mediastinal widening or pleural fluid. The lungs are clear. IMPRESSION: No evidence of an acute cardiopulmonary abnormality. Dictated by: Dictated on workstation # [id number]
--- OUTSIDE RECORDS SUMMARY | 2016-12-02 05:06 | XMS REPORT | Continuity of Care Document ---
Author Author [facility] Organization [facility] Address Unknown Phone Unavailable Care Team Providers Care Dental Insurance Coordinator Name Role Phone Chloe Stanley PCP [phone] Source Comments Some departments are not documenting in the electronic medical record. If you do not see the information that you expected, contact Release of Information in the Health Information Management department at [phone] for further assistance in locating additional records.[facility] Active Allergies and Adverse Reactions Allergen Noted Date Severity Reactions Comments Betadine 08/14/2016 Medium HIVES Biaxin 08/14/2016 Low SEE COMMENTS Unsure Insulin Detemir 08/14/2016 Low SEE COMMENTS Flu like symptoms Iodine 08/14/2016 Medium HIVES Metformin 08/14/2016 Low SEE COMMENTS Nausea and diarrhea Current Medications Prescription Sig. Disp. Refills Start End Date Status Date insulin aspart 70/30 (+) Inject 20 Units under the Active (NOVOLOG MIX 70/30) 100 skin once. unit/mL (70-30) LISINOPRIL PO Take 5 mg by mouth daily. Active melatonin 3 mg tab Take 3 mg by mouth at Active bedtime daily. Active Problems Not on file Social History Tobacco Use Types Packs/Day Years Used Date Current Every Day Smoker Cigarettes 1 40 Alcohol Use Drinks/Week oz/Week Comments No 0 Standard 0.0 drinks or equivalent Plan of Care Health Maintenance Due Date Last Done Comments Hepatitis C Screening 1958 Physical (Comprehensive) 1965 Exam Pertussis Vaccine 1969 Tetanus Vaccine 10/11/1975 Cervical Cancer Screening 10/11/1979 Breast Cancer Screening 1998 Colorectal Cancer 2008 Screening Influenza Vaccine 01/23/2017 Results from Last 3 Months Not on file
--- OUTSIDE RECORDS SUMMARY | 2016-12-02 05:06 | XMS REPORT ---
Author Author TATY PURVIS [facility] [employer] Address Unknown Phone Unavailable Care Team Providers Care Pattern Cleaner Name Role Phone TATY PURVIS CP Unavailable Allergies No Known Allergies Problems Problem Type Condition Code Onset Dates Condition Status Problem Anxiety F41.9 Active Problem Hypertension I10 Active Problem Neuropathy G62.9 Active Problem Coronary atherosclerosis of unspecified type of vessel, [place] or graft 414.00 Active Problem Major depressive disorder, single episode, severe, without mention of psychotic behavior 296.23 Active Problem Type 2 diabetes mellitus with diabetic neuropathy E11.40 Active Problem Mixed hyperlipidemia E78.2 Active Problem Depression F32.9 Active Problem Atherosclerotic heart disease of [place] coronary artery without angina pectoris I25.10 Active Problem Tobacco abuse Z72.0 Active 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
--- OUTSIDE RECORDS SUMMARY | 2016-12-02 05:06 | XMS REPORT ---
Author Author TATY PURVIS Organization [employer] Address Unknown Phone Unavailable Care Team Providers Care Science Manager Name Role Phone TATY PURVIS CP Unavailable Allergies No Known Allergies Problems Problem Type Condition Code Onset Dates Condition Status Problem Tobacco abuse Z72.0 Active Problem Chronic obstructive pulmonary disease, unspecified COPD type J44.9 Active Problem Atherosclerotic heart disease of [place] coronary artery without angina pectoris I25.10 Active Problem Primary insomnia F51.01 Active Problem Depression F32.9 Active Problem Diarrhea R19.7 Active Problem Mixed hyperlipidemia E78.2 Active Problem [facility] current use of insulin Z79.4 Active Problem 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.49 Active Problem Type 2 diabetes mellitus with diabetic neuropathy E11.40 Active Problem Major depressive disorder, single episode, severe, without mention of psychotic behavior 296.23 Active Problem Anxiety F41.9 Active Assessment Hypokalemia E87.6 Active Problem Neuropathy G62.9 Active Problem Coronary atherosclerosis of unspecified type of vessel, [place] or graft 414.00 Active Problem Hypertension I10 Active Medications No Known Medications Results No Known Results Summary Purpose [employer] Submission
--- OUTSIDE RECORDS SUMMARY | 2016-12-02 05:06 | XMS REPORT ---
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.4 Active Problem Type 2 diabetes mellitus with diabetic neuropathy E11.40 Active Problem Tobacco abuse Z72.0 Active Problem Hypertension I10 Active Problem Chronic obstructive pulmonary disease, unspecified COPD type J44.9 Active Problem Atherosclerotic heart disease of [place] coronary artery without angina pectoris I25.10 Active Medications Medication Code System Code Instructions Start Date End Date Status Dosage Lisinopril [facility] [address]-18 5 MG May 09, 2014 take 1 tablet by Oral route 1 time per day for blood pressure Results No Known Results Summary Purpose [employer]ClinicalWorks Submission
--- OUTSIDE RECORDS SUMMARY | 2016-12-02 05:06 | XMS REPORT ---
Author Author TATY PURVIS [facility] [place] [employer] Address Unknown Phone Unavailable Care Team Providers Care Flooring Grader Name Role Phone TATY PURVIS CP Unavailable Allergies No Known Allergies Problems Problem Type Condition Code Onset Dates Condition Status Problem Neuropathy G62.9 Active Problem Tobacco abuse Z72.0 Active Problem Hypertension I10 Active Problem 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.49 Active Problem Type 2 diabetes mellitus with diabetic neuropathy E11.40 Active Problem Depression F32.9 Active Problem Chronic obstructive pulmonary disease, unspecified COPD type J44.9 Active Problem Atherosclerotic heart disease of [place] coronary artery without angina pectoris I25.10 Active Problem Mixed hyperlipidemia E78.2 Active Problem intermediate current use of insulin Z79.4 Active Problem Coronary atherosclerosis of unspecified type of vessel, [place] or graft 414.00 Active Problem Major depressive disorder, single episode, severe, without mention of psychotic behavior 296.23 Active Problem Anxiety F41.9 Active Medications Medication Code System Code Instructions Start Date End Date Status Dosage Lisinopril [facility] [address]-82 5 MG Orally Once a day May 09, 2014 1 tablet Results No Known Results Summary Purpose eClinicalWorks Submission
--- OUTSIDE RECORDS SUMMARY | 2016-12-02 05:07 | XMS REPORT ---
Author Author TATY PURVIS [facility] [employer] Address Unknown Phone Unavailable Care Team Providers Care Hot Die Picker Name Role Phone TATY PURVIS CP Unavailable Allergies No Known Allergies Problems Problem Type Condition Code Onset Dates Condition Status Problem Type 2 diabetes mellitus with diabetic neuropathy E11.40 Active Problem Depression F32.9 Active Problem 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.49 Active Problem Hypomagnesemia E83.42 Active Problem Tremor R25.1 Active Problem Memory loss R41.3 Active Problem Hypokalemia E87.6 Active Problem Primary insomnia F51.01 Active Problem Vision changes H53.9 Active Problem Daytime hypersomnia G47.19 Active Problem Anxiety F41.9 Active Problem Neuropathy G62.9 Active Assessment Abnormal carotid ultrasound R93.8 Active Problem Abnormal carotid ultrasound R93.8 Active Problem Atherosclerotic heart disease of [place] coronary artery without angina pectoris I25.10 Active Problem Chronic obstructive pulmonary disease, unspecified COPD type J44.9 Active Problem Hypertension I10 Active Problem retirement current use of insulin Z79.4 Active Problem Tobacco abuse Z72.0 Active Problem Mixed hyperlipidemia E78.2 Active Medications No Known Medications Results No Known Results Summary Purpose [employer]ClinicalWorks Submission
--- OUTSIDE RECORDS SUMMARY | 2016-12-02 05:07 | XMS REPORT ---
Author Author TATY PURVIS [facility] [employer] Address Unknown Phone Unavailable Care Team Providers Care Director Medical Affairs Name Role Phone TATY PURVIS CP Unavailable Allergies No Known Allergies Problems Problem Type Condition Code Onset Dates Condition Status Problem Chronic obstructive pulmonary disease, unspecified COPD type J44.9 Active Problem Mixed hyperlipidemia E78.2 Active Problem [facility] current use of insulin Z79.4 Active Problem Hypokalemia E87.6 Active Problem Diarrhea R19.7 Active Problem Daytime hypersomnia G47.19 Active Problem 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.49 Active Problem Type 2 diabetes mellitus with diabetic neuropathy E11.40 Active Problem Primary insomnia F51.01 Active Problem Depression F32.9 Active Problem Neuropathy G62.9 Active Problem Hypertension I10 Active Problem Coronary atherosclerosis of unspecified type of vessel, [place] or graft 414.00 Active Problem Tobacco abuse Z72.0 Active Problem Anxiety F41.9 Active Problem Atherosclerotic heart disease of [place] coronary artery without angina pectoris I25.10 Active Medications Medication Code System Code Instructions Start Date End Date Status Dosage NovoLog Flexpen [facility] [address]-17 100 UNIT/ML 3 times a day Dec 26, 2015 7 units with meals Results No Known Results Summary Purpose [employer]ClinicalWorks Submission
--- OUTSIDE RECORDS SUMMARY | 2016-12-02 05:07 | XMS REPORT ---
Author Author TATY PURVIS [facility] eClinicalWorks Address Unknown Phone Unavailable Care Team Providers Care Wagon Washer Name Role Phone TATY PURVIS CP Unavailable Allergies, Adverse Reactions, Alerts Substance Reaction Event Type Metformin HCl Info Not Available Drug Allergy Iodine Info Not Available Drug Allergy Biaxin Info Not Available Drug Allergy Problems Problem Type Condition Code Onset Dates Condition Status Problem Tobacco abuse Z72.0 Active Problem Chronic obstructive pulmonary disease, unspecified COPD type J44.9 Active Problem Atherosclerotic heart disease of [place] coronary artery without angina pectoris I25.10 Active Problem Primary insomnia F51.01 Active Assessment Anxiety F41.9 Active Problem Depression F32.9 Active Assessment Diarrhea R19.7 Active Assessment Primary insomnia F51.01 Active Problem Diarrhea R19.7 Active Problem Mixed hyperlipidemia E78.2 Active Problem nursing home current use of insulin Z79.4 Active Problem 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.49 Active Problem Type 2 diabetes mellitus with diabetic neuropathy E11.40 Active 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.4 Active Assessment Mixed hyperlipidemia E78.2 Active Assessment Depression F32.9 Active Assessment Hypertension I10 Active Problem Major depressive disorder, single episode, severe, without mention of psychotic behavior 296.23 Active Problem Anxiety F41.9 Active Assessment Type 2 diabetes mellitus with diabetic neuropathy E11.40 Active Problem Neuropathy G62.9 Active Problem Coronary atherosclerosis of unspecified type of vessel, [place] or graft 414.00 Active Problem Hypertension I10 Active Medications Medication Code System Code Instructions Start Date End Date Status Dosage Lisinopril [facility] [address]-11 5 MG oral daily take 1 tablet by Oral route 1 time per day for blood pressure Triamcinolone Acetonide [facility] [address]-24 0.1 % Externally Twice a day May 15, 2015 1 application to affected area NovoLog [facility] [address]-77 100 unit/mL three times a day August 15, 2014 5 units with meals Clonidine HCl [facility] [address]-28 0.1 MG Orally 2 times a day 1 tablet Levemir [facility] [address]-26 100 UNIT/ML Subcutaneous 2 times a day August 15, 2014 15 units Klor-Con M20 [facility] [address]-58 20 MEQ Orally Once a day Mar 23, 2015 1 tablet Aspirin [facility] [address]-21 81 mg Jan 21, 2012 chew 1 tablet (81 mg ) by oral route once daily Bentyl [facility] [address]-25 10 MG Orally 2 times a day 1 capsule BusPIRone HCl [facility] [address]-66 15 MG Orally Twice a day prn 1/2- 1 tablet Ventolin HFA [facility] [address]-43 90 mcg/actuation September 30, 2012 inhale 2 puffs by Inhalation route as needed every 4-6 hours PRN for cough or wheeze Nitroglycerin [facility] [address]-80 0.4 mg Mar 03, 2013 place 1 tablet by Sublingual route every 15 minutes minutes for chest pain; Max 3 tabs in 15 min PRN Celexa [facility] [address]-69 20 MG Orally Once a day 1 tablet Lunesta [facility] [address]-05 1 MG Orally Once a day Jun 12, 2015 1 tablet immediately before bedtime Symbicort [facility] [address]-77 160-4.5 mcg/actuation September 28, 2012 inhale 2 puffs by inhalation route 2 times per day in the morning and evening Procedures Procedure Coding System Code Date COMPREHEN METABOLIC PANEL CPT-4 14475 Jun 12, 2015 VENIPUNCT, ROUTINE* CPT-4 60072 Jun 12, 2015 Office Visit, Est Pt., Level 4 CPT-4 92754 Jun 12, 2015 Vital Signs Date/Time: Jun 12, 2015 Temperature 98.6 F Weight 158.9 lbs Height 64 in BMI 27.27 Index Blood Pressure Diastolic 56 mmHg Blood Pressure Systolic 120 mmHg Cardiac Monitoring Heart Rate 74 bpm Results Name Result Date Reference Range Unit Abnormality Flag ROUTINE VENIPUNCTURE CMP ----Sodium, Serum 142 20150612 134-144 mmol/L ----BUN/Creatinine Ratio 8 20150612 9-23 L ----Chloride, Serum 89 20150612 97-108 mmol/L L ----Potassium, Serum 2.6 20150612 3.5-5.2 mmol/L L ----Calcium, Serum 8.5 00234149 8.7-10.2 mg/dL L ----Protein, Total, Serum 6.5 82782957 6.0-8.5 g/dL ----Carbon Dioxide, Total 36 20150612 18-29 mmol/L H ----A/G Ratio 1.0 62490062 1.1-2.5 L ----eGFR If NonAfricn Am 78 [id number] >59 mL/min/1.73 ----Bilirubin, Total 0.4 20766514 0.0-1.2 mg/dL ----eGFR If Africn Am 90 [id number] >59 mL/min/1.73 ----BUN 7 20150612 6-24 mg/dL ----Albumin, Serum 3.2 20150612 3.5-5.5 g/dL L ----Globulin, Total 3.3 10455754 1.5-4.5 g/dL ----Creatinine, Serum 0.84 20150612 0.57-1.00 mg/dL ----ALT (SGPT) 5 20150612 0-32 IU/L ----Glucose, Serum 229 20150612 65-99 mg/dL H ----Alkaline Phosphatase, S 101 20150612 39-117 IU/L ----AST (SGOT) 10 20150612 0-40 IU/L Summary Purpose eClinicalWorks Submission
--- OUTSIDE RECORDS SUMMARY | 2016-12-02 05:08 | XMS REPORT ---
Author Author TATY PURVIS [facility] eClinicalWorks Address Unknown Phone Unavailable Care Team Providers Care Pulpwood Cutter Name Role Phone TATY PURVIS CP Unavailable Allergies No Known Allergies Problems Problem Type Condition Code Onset Dates Condition Status Problem Anxiety F41.9 Active Problem Hypertension I10 Active Problem Neuropathy G62.9 Active Problem Coronary atherosclerosis of unspecified type of vessel, [place] or graft 414.00 Active Problem Major depressive disorder, single episode, severe, without mention of psychotic behavior 296.23 Active Problem Type 2 diabetes mellitus with diabetic neuropathy E11.40 Active Problem Mixed hyperlipidemia E78.2 Active Problem Depression F32.9 Active Problem Atherosclerotic heart disease of [place] coronary artery without angina pectoris I25.10 Active Problem Tobacco abuse Z72.0 Active 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
--- OUTSIDE RECORDS SUMMARY | 2016-12-02 05:08 | XMS REPORT ---
Author Author TATY PURVIS [facility] eClinicalWorks Address Unknown Phone Unavailable Care Team Providers Care Shearer Helper Name Role Phone TATY PURVIS CP Unavailable Allergies, Adverse Reactions, Alerts Substance Reaction Event Type Metformin HCl Info Not Available Drug Allergy Iodine Info Not Available Drug Allergy Biaxin Info Not Available Drug Allergy Problems Problem Type Condition Code Onset Dates Condition Status Problem Anxiety F41.9 Active Problem Hypertension I10 Active Problem Neuropathy G62.9 Active Problem Type 2 diabetes mellitus with diabetic neuropathy E11.40 Active Problem Mixed hyperlipidemia E78.2 Active Problem Depression F32.9 Active Problem Atherosclerotic heart disease of [place] coronary artery without angina pectoris I25.10 Active Problem Tobacco abuse Z72.0 Active 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 Problem Chronic obstructive pulmonary disease, unspecified COPD type J44.9 Active Assessment Anxiety F41.9 Active Assessment Depression F32.9 Active Assessment Hyperkalemia E87.5 Active Assessment Diarrhea R19.7 Active Assessment Mixed hyperlipidemia E78.2 Active Assessment Type 2 diabetes mellitus with diabetic neuropathy E11.40 Active Assessment Hypertension I10 Active Problem Coronary atherosclerosis of unspecified type of vessel, [place] or graft 414.00 Active Assessment assisted current use of insulin Z79.4 Active Problem Major depressive disorder, single episode, severe, without mention of psychotic behavior 296.23 Active Medications Medication Code System Code Instructions Start Date End Date Status Dosage Dicyclomine HCl [facility] [address]-83 10 MG Orally 2 times a day prn Apr 11, 2015 May 11, 2015 1 capsule Magnesium Oxide [facility] [address]92[address]374 250 MG Orally Once a day Mar 23, 2015 Apr 22, 2015 1 tablet Ventolin HFA [facility] [address]-05 90 mcg/actuation September 30, 2012 inhale 2 puffs by Inhalation route as needed every 4-6 hours PRN for cough or wheeze atorvastatin [place] 0 20 mg Mar 18, 2013 take 2 tablets (40 mg) by oral route once daily Klor-Con M20 [facility] [address]-53 20 MEQ Orally Once a day Mar 23, 2015 1 tablet Plavix [facility] [address]-71 75 mg August 15, 2014 take 1 tablet (75 mg ) by oral route once daily Ibuprofen [facility] [address]-71 600 mg Jun 13, 2014 1 Tablet by Po route 3 times per day for pain. take with food Celexa [facility] [address]-85 20 MG Orally Once a day Apr 06, 2015 1 tablet Levemir [facility] [address]-72 100 UNIT/ML Subcutaneous 2 times a day August 15, 2014 15 units Lisinopril [facility] [address]-37 5 MG May 09, 2014 take 1 tablet by Oral route 1 time per day for blood pressure Metoprolol Tartrate [facility] [address]-37 50 MG Orally Once a day x 7 dyas then bid 1 tablet Clonidine HCl [facility] [address]-81 0.1 MG Orally 2 times a day Apr 06, 2015 1 tablet NovoLog [facility] [address]-84 100 unit/mL August 15, 2014 inject 15 Units by Subcutaneous route 3 times per day before meals- pals Albuterol Sulfate [facility] [address]-39 2.5 mg /3 mL (0.083 %) May 24, 2014 1 Each by Inhalation route every 4 hours for cough and wheeze PRN for wheezing or cough Ipratropium [place] [facility] [address]-28 0.02 % May 24, 2014 2.5 mL by Inhalation route 4 daily PRN wheezing or cough Mix albuterol and use 4 times a day Potassium Chloride [facility] [address]-40 20 MEQ/15ML (10%) Orally Once a day Mar 27, 2015 Apr 26, 2015 15 ml Nitroglycerin [facility] [address]-97 0.4 mg Mar 03, 2013 place 1 tablet by Sublingual route every 15 minutes minutes for chest pain; Max 3 tabs in 15 min PRN Flonase [facility] [address]-32 50 mcg/actuation July 26, 2014 1 sprays by Nasal route 2 times per day in each nostril BusPIRone HCl [facility] [address]-82 15 MG Orally Twice a day prn Mar 20, 2015 1/2- 1 tablet Symbicort [facility] [address]-73 160-4.5 mcg/actuation September 28, 2012 inhale 2 puffs by inhalation route 2 times per day in the morning and evening Aspirin [facility] [address]-60 81 mg Jan 21, 2012 chew 1 tablet (81 mg ) by oral route once daily amitriptyline [facility] [address]-02 50 mg May 09, 2014 0.5 Tablet by Po route 1 time per day Procedures Procedure Coding System Code Date ASSAY OF MAGNESIUM CPT-4 42639 Apr 11, 2015 LIPID PANEL CPT-4 49002 Apr 11, 2015 COMPREHEN METABOLIC PANEL CPT-4 85059 Apr 11, 2015 Office Visit, Est Pt., Level 4 CPT-4 33223 Apr 11, 2015 VENIPUNCT, ROUTINE* CPT-4 81122 Apr 11, 2015 Vital Signs Date/Time: Apr 11, 2015 Temperature 98.0 F Weight 165.6 lbs Height 64 in BMI 28.42 Index Blood Pressure Diastolic 88 mmHg Blood Pressure Systolic 160 mmHg Cardiac Monitoring Heart Rate 76 bpm Results Name Result Date Reference Range Unit Abnormality Flag ROUTINE VENIPUNCTURE MAGNESIUM, SERUM Summary Purpose eClinicalWorks Submission
--- OUTSIDE RECORDS SUMMARY | 2016-12-02 05:08 | XMS REPORT ---
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 [address]-44 20 MEQ/15ML (10%) Orally Once a day Mar 27, 2015 Apr 26, 2015 15 ml Results No Known Results Summary Purpose eClinicalWorks Submission
--- OUTSIDE RECORDS SUMMARY | 2016-12-02 05:08 | XMS REPORT ---
Author Author TATY PURVIS [facility] eClinicalWorks Address Unknown Phone Unavailable Care Team Providers Care Reed Cleaner Name Role Phone TATY PURVIS CP Unavailable Allergies, Adverse Reactions, Alerts Substance Reaction Event Type Metformin HCl Info Not Available Drug Allergy Levemir Info Not Available Drug Allergy Iodine Info Not Available Drug Allergy Biaxin Info Not Available Drug Allergy Problems Problem Type Condition Code Onset Dates Condition Status Assessment Rib pain R07.81 Active Assessment Primary insomnia F51.01 Active Assessment Hypokalemia E87.6 Active Assessment Depression F32.9 Active Assessment Neuropathy G62.9 Active Problem jail current use of insulin Z79.4 Active Assessment Hypertension I10 Active Problem Mixed hyperlipidemia E78.2 Active Assessment Chronic obstructive pulmonary disease, unspecified COPD type J44.9 Active Problem Type 2 diabetes mellitus with diabetic neuropathy E11.40 Active Problem Depression F32.9 Active Problem 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.49 Active Problem Hypomagnesemia E83.42 Active Problem Tremor R25.1 Active Assessment 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.49 Active Assessment jail current use of insulin Z79.4 Active Problem Memory loss R41.3 Active Assessment Tremor R25.1 Active Problem Hypokalemia E87.6 Active Problem Primary insomnia F51.01 Active Problem Vision changes H53.9 Active Problem Daytime hypersomnia G47.19 Active Problem Anxiety F41.9 Active Problem Neuropathy G62.9 Active Assessment Memory loss R41.3 Active Problem Abnormal carotid ultrasound R93.8 Active Problem Atherosclerotic heart disease of [place] coronary artery without angina pectoris I25.10 Active Problem Chronic obstructive pulmonary disease, unspecified COPD type J44.9 Active Problem Hypertension I10 Active Problem Tobacco abuse Z72.0 Active Medications Medication Code System Code Instructions Start Date End Date Status Dosage Oxygen NDC 0 & Tubing per nasal cannula at night. 2 liters Ventolin HFA [facility] [address]-65 90 mcg/actuation Inhalation as directed inhale 2 puffs by Inhalation route as needed every 4-6 hours PRN for cough or wheeze Rozerem [facility] [address]-67 8 MG Orally Once a day 1 tablet at bedtime as needed NovoLog [facility] [address]-95 100 UNIT/ML Subcutaneous three times a day 7 units with meals BusPIRone HCl [facility] [address]-93 15 MG TAKE ONE-HALF TO ONE TABLET BY MOUTH TWICE DAILY NEEDED Magnesium [facility] [address]355 400 MG Orally Once a day 1 tablet Symbicort [facility] [address]-46 160-4.5 mcg/actuation Inhalation Twice a day inhale 2 puffs by inhalation route 2 times per day in the morning and evening Klor-Con M20 [facility] [address]-56 20 MEQ Orally Once a day 1 tablet Celexa [facility] [address]-04 20 mg Orally Once a day 1 tablet Dicyclomine HCl [facility] [address]-71 10 mg Orally 2 times a day Jun 08, 2016 1 capsules Toujeo SoloStar [facility] [address]-04 300 UNIT/ML Subcutaneous Once a day 18 units Gabapentin [facility] [address]-18 300 MG Orally Three times a day 2 capsules Lisinopril [facility] [address]-85 5 mg oral daily take 1 tablet by Oral route 1 time per day for blood pressure CloNIDine HCl ER [facility] [address]-26 0.1 MG Orally twice a day 1 tablet at bedtime Rexulti [facility] [address]-03 0.5 MG Orally Once a day Apr 09, 2016 1 tablet Gabapentin [facility] [address]-92 600 MG Orally Three times a day Jan 08, 2016 1 tablet BD Pen Needle Rox U/F [facility] 8290-044470 32G X 4 MM subcutaneously 2 times a day as directed Eszopiclone [facility] [address]-88 1 MG Orally Once a day 1 tablet immediately before bedtime Procedures Procedure Coding System Code Date X-RAY EXAM OF RIBS CPT-4 20064 Apr 09, 2016 [facility] CPT-4 NOBLL Apr 09, 2016 GLYCATED HEMOGLOBIN TEST CPT-4 83067 Apr 09, 2016 Office Visit, Est Pt., Level 5 CPT-4 87369 Apr 09, 2016 VENIPUNCT, ROUTINE* CPT-4 64125 Apr 09, 2016 Vital Signs Date/Time: Apr 09, 2016 Cardiac Monitoring Heart Rate 70 bpm Weight 158.3 lbs Height 64 in BMI 27.17 Index Blood Pressure Diastolic 62 mmHg Blood Pressure Systolic 118 mmHg Results Name Result Date Reference Range Unit Abnormality Flag MAGNESIUM, SERUM ----Magnesium, Serum 1.6 73802079 1.6-2.3 mg/dL CBC ----Basos 0 93325359 % ----MCV 87 10216268 79-97 fL ----Hematocrit 40.4 96140469 34.0-46.6 % ----Eos 3 00669690 % ----MCHC 33.2 02837002 31.5-35.7 g/dL ----Monocytes 7 55061458 % ----MCH 28.8 85064071 26.6-33.0 pg ----Lymphs 33 51371909 % ----Eos (Absolute) 0.2 60555657 0.0-0.4 x10E3/uL ----WBC 6.6 50228600 3.4-10.8 x10E3/uL ----Monocytes(Absolute) 0.5 34002590 0.1-0.9 x10E3/uL ----Lymphs (Absolute) 2.2 12145566 0.7-3.1 x10E3/uL ----Hemoglobin 13.4 26542259 11.1-15.9 g/dL ----Neutrophils (Absolute) 3.7 87314533 1.4-7.0 x10E3/uL ----RBC 4.66 96886352 3.77-5.28 x10E6/uL ----Immature Grans (Abs) 0.0 61969694 0.0-0.1 x10E3/uL ----Immature Granulocytes 0 75318205 % ----Neutrophils 57 98782566 % ----Baso (Absolute) 0.0 05981831 0.0-0.2 x10E3/uL ----RDW 15.3 67315446 12.3-15.4 % ----Platelets 253 37727818 150-379 x10E3/uL ROUTINE VENIPUNCTURE A1C (IN HOUSE) ----Exp date [id number] ----Previous A1c 9.3 20160409 ----Lot 0637 20160409 ----A1C IN HOUSE 9.0 79524652 4.3 - 5.6 % Xray : Rib Series, Left (IN HOUSE) Xray : Rib Series, Right (IN HOUSE) CMP ----Potassium, Serum 4.4 31129041 3.5-5.2 mmol/L ----Sodium, Serum 138 21399972 136-144 mmol/L ----BUN/Creatinine Ratio 12 2016040923 ----eGFR If Africn Am 83 56944725 >59 mL/min/1.73 ----eGFR If NonAfricn Am 72 57966837 >59 mL/min/1.73 ----Creatinine, Serum 0.89 51035399 0.57-1.00 mg/dL ----BUN 11 20160409 6-24 mg/dL ----Glucose, Serum 305 09639365 65-99 mg/dL H ----AST (SGOT) 7 56332527 0-40 IU/L ----Globulin, Total 2.9 18446421 1.5-4.5 g/dL ----ALT (SGPT) 8 20160409 0-32 IU/L ----A/G Ratio 1.2 28752835 1.1-2.5 ----Bilirubin, Total <0.2 99330531 0.0-1.2 mg/dL ----Alkaline Phosphatase, S 95 10944641 39-117 IU/L ----Carbon Dioxide, Total 27 96579683 18-29 mmol/L ----Calcium, Serum 9.3 85940355 8.7-10.2 mg/dL ----Protein, Total, Serum 6.4 20041917 6.0-8.5 g/dL ----Albumin, Serum 3.5 11672922 3.5-5.5 g/dL ----Chloride, Serum 98 60304370 97-106 mmol/L Carotid Ultrasound Summary Purpose eClinicalWorks Submission
--- OUTSIDE RECORDS SUMMARY | 2016-12-02 05:08 | XMS REPORT ---
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 194352408 Problem Type 2 diabetes mellitus with diabetic neuropathy E11.40 Active 89258944 Problem Mixed hyperlipidemia E78.2 Active 152299615 Problem Vision changes H53.9 Active 12040567 Problem Daytime hypersomnia G47.19 Active 18949384047032 Problem Depression F32.9 Active 28879987 Problem 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.49 Active 705311938 Problem Hypokalemia E87.6 Active 14935851 Problem Primary insomnia F51.01 Active 6734969 Problem Abnormal carotid ultrasound R93.8 Active 494965497 Problem Hypertension I10 Active 36312427 Problem Tobacco abuse Z72.0 Active 72699456 Problem Anxiety F41.9 Active 37186813 Problem Atherosclerotic heart disease of [place] coronary artery without angina pectoris I25.10 Active 0785069364803 Problem Neuropathy G62.9 Active 904793806 Problem Chronic obstructive pulmonary disease, unspecified COPD type J44.9 Active 97657740 ALLERGIES Unknown Allergies SOCIAL HISTORY No smoking Hx information available PLAN OF CARE VITAL SIGNS MEDICATIONS Unknown Medications RESULTS No Results PROCEDURES No Known procedures IMMUNIZATIONS No Known Immunizations
--- OUTSIDE RECORDS SUMMARY | 2016-12-02 05:09 | XMS REPORT ---
Author Author TATY PURVIS [facility] eClinicalWorks Address Unknown Phone Unavailable Care Team Providers Care Customer Program Specialist Name Role Phone TATY PURVIS CP Unavailable Allergies No Known Allergies Problems Problem Type Condition Code Onset Dates Condition Status Problem Primary insomnia F51.01 Active Problem Hypokalemia E87.6 Active Problem Diarrhea R19.7 Active Problem Hypomagnesemia E83.42 Active Problem Anxiety F41.9 Active Problem Tremor R25.1 Active Problem Coronary atherosclerosis of unspecified type of vessel, [place] or graft 414.00 Active Problem Memory loss R41.3 Active Problem Abdominal pain, right lateral R10.9 Active Problem Daytime hypersomnia G47.19 Active Problem Alteration in mobility due to weakness R53.1 Active Problem Vision changes H53.9 Active Problem Tobacco abuse Z72.0 Active Problem Atherosclerotic heart disease of [place] coronary artery without angina pectoris I25.10 Active Problem Neuropathy G62.9 Active Problem Hypertension I10 Active Problem Mixed hyperlipidemia E78.2 Active Problem Type 2 diabetes mellitus with diabetic neuropathy E11.40 Active Problem Chronic obstructive pulmonary disease, unspecified COPD type J44.9 Active Problem 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.49 Active Problem jail current use of insulin Z79.4 Active Problem Depression F32.9 Active Medications Medication Code System Code Instructions Start Date End Date Status Dosage [facility] [address]-21 8 MG Orally Once a day Jan 08, 2016 1 tablet at bedtime as needed Results No Known Results Summary Purpose eClinicalWorks Submission
--- OUTSIDE RECORDS SUMMARY | 2016-12-02 05:09 | XMS REPORT ---
Author Author MELINA BRAGG [facility] eClinicalWorks Address Unknown Phone Unavailable Care Team Providers Care Custody Assistant Name Role Phone MELINA BRAGG CP Unavailable Allergies No Known Allergies Problems [...] J44.9 Active Problem Atherosclerotic heart disease of [place] coronary artery without angina pectoris I25.10 Active Problem Mixed hyperlipidemia E78.2 Active Problem halfway current use of insulin Z79.4 Active Assessment Onychomycosis B35.1 Active Problem Coronary atherosclerosis of unspecified type of vessel, [place] or graft 414.00 Active Assessment 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.49 Active Problem Major depressive disorder, single episode, severe, without mention of psychotic behavior 296.23 Active Assessment Other hammer toe (acquired) M20.40 Active Problem Anxiety F41.9 Active Medications No Known Medications Procedures Procedure Coding System Code Date Office Visit, Est Pt., Level 3 CPT-4 80605 May 11, 2015 DEBRIDE NAIL, 1-5 CPT-4 27576 May 11, 2015 Vital Signs Date/Time: May 11, 2015 Blood Pressure Diastolic 68 mmHg Blood Pressure Systolic 118 mmHg Height 64 in Results Name Result Date Reference Range Unit Abnormality Flag DEBRIDE NAIL 1-5 Summary Purpose eClinicalWorks Submission
--- OUTSIDE RECORDS SUMMARY | 2016-12-02 05:09 | XMS REPORT ---
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.4 Active 574349317 Problem Type 2 diabetes mellitus with diabetic neuropathy E11.40 Active 03531078 Problem Mixed hyperlipidemia E78.2 Active 060681730 Problem Vision changes H53.9 Active 39961606 Problem Daytime hypersomnia G47.19 Active 48225726723712 Problem Depression F32.9 Active 11168784 Problem 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.49 Active 813960809 Problem Hypokalemia E87.6 Active 31724076 Problem Primary insomnia F51.01 Active 5599817 Problem Abnormal carotid ultrasound R93.8 Active 840706218 Problem Hypertension I10 Active 68649390 Problem Tobacco abuse Z72.0 Active 44386955 Problem Anxiety F41.9 Active 02815204 Problem Atherosclerotic heart disease of [place] coronary artery without angina pectoris I25.10 Active 4337048775541 Problem Neuropathy G62.9 Active 087911993 Problem Chronic obstructive pulmonary disease, unspecified COPD type J44.9 Active 13018358 ALLERGIES Unknown Allergies SOCIAL HISTORY No smoking Hx information available PLAN OF CARE VITAL SIGNS MEDICATIONS Medication Instructions Dosage Frequency Start Date End Date Duration Status Klor-Con M20 20 MEQ Orally Once a day 1 tablet 24h Active RESULTS No Results PROCEDURES No Known procedures IMMUNIZATIONS No Known Immunizations
--- OUTSIDE RECORDS SUMMARY | 2016-12-02 05:09 | XMS REPORT ---
Author Author TAYT PURVIS Organization eClinicalWorks Address Unknown Phone Unavailable Care Team Providers Care Manager English Name Role Phone TATY PURVIS CP Unavailable Allergies No Known Allergies Problems Problem Type Condition Code Onset Dates Condition Status Problem Major depressive disorder, single episode, severe, without mention of psychotic behavior 296.23 Active Problem Neuropathy G62.9 Active Problem Anxiety F41.9 Active Problem Mixed hyperlipidemia E78.2 Active Problem alf current use of insulin Z79.4 Active Problem Type 2 diabetes mellitus with diabetic neuropathy E11.40 Active Problem Tobacco abuse Z72.0 Active Problem Hypertension I10 Active Problem Chronic obstructive pulmonary disease, unspecified COPD type J44.9 Active Problem Atherosclerotic heart disease of [place] coronary artery without angina pectoris I25.10 Active Assessment Hypokalemia E87.6 Active Assessment Hypomagnesemia E83.42 Active Problem Coronary atherosclerosis of unspecified type of vessel, [place] or graft 414.00 Active Medications Medication Code System Code Instructions Start Date End Date Status Dosage Klor-Con M20 [facility] [address]-86 20 MEQ Orally Once a day Mar 23, 2015 1 tablet Magnesium Oxide [facility] [address] 250 MG Orally Once a day Mar 23, 2015 Apr 22, 2015 1 tablet Results No Known Results Summary Purpose eClinicalWorks Submission
--- OUTSIDE RECORDS SUMMARY | 2016-12-02 05:09 | XMS REPORT ---
Author Author TATY PURVIS [facility] eClinicalWorks Address Unknown Phone Unavailable Care Team Providers Care Poster Name Role Phone TATY PURVIS CP Unavailable Allergies, Adverse Reactions, Alerts Substance Reaction Event Type Metformin HCl Info Not Available Drug Allergy Iodine Info Not Available Drug Allergy Biaxin Info Not Available Drug Allergy Problems Problem Type Condition Code Onset Dates Condition Status Problem Tobacco abuse Z72.0 Active Problem Chronic obstructive pulmonary disease, unspecified COPD type J44.9 Active Problem Atherosclerotic heart disease of [place] coronary artery without angina pectoris I25.10 Active Problem Primary insomnia F51.01 Active Assessment Anxiety F41.9 Active Problem Depression F32.9 Active Assessment Diarrhea R19.7 Active Assessment Dermatitis L30.9 Active Problem Diarrhea R19.7 Active Problem Mixed hyperlipidemia E78.2 Active 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 Active Problem 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.49 Active Problem Type 2 diabetes mellitus with diabetic neuropathy E11.40 Active Assessment 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.4 Active Assessment Mixed hyperlipidemia E78.2 Active Assessment Depression F32.9 Active Assessment Hypertension I10 Active Problem Major depressive disorder, single episode, severe, without mention of psychotic behavior 296.23 Active Problem Anxiety F41.9 Active Assessment Type 2 diabetes mellitus with diabetic neuropathy E11.40 Active Problem Neuropathy G62.9 Active Assessment Primary insomnia F51.01 Active Problem Coronary atherosclerosis of unspecified type of vessel, [place] or graft 414.00 Active Problem Hypertension I10 Active Medications Medication Code System Code Instructions Start Date End Date Status Dosage amitriptyline [facility] [address]-02 25 mg oral at hs May 09, 2014 1 tablet Levemir [facility] [address]-71 100 UNIT/ML Subcutaneous 2 times a day August 15, 2014 15 units Bentyl [facility] [address]-73 10 MG Orally 2 times a day 1 capsule Symbicort [facility] [address]-37 160-4.5 mcg/actuation September 28, 2012 inhale 2 puffs by inhalation route 2 times per day in the morning and evening Celexa [facility] [address]-96 20 MG Orally Once a day 1 tablet Triamcinolone Acetonide [facility] [address]-41 0.1 % Externally Twice a day May 15, 2015 1 application to affected area Klor-Con M20 [facility] [address]-00 20 MEQ Orally Once a day Mar 23, 2015 1 tablet Aspirin [facility] [address]-17 81 mg Jan 21, 2012 chew 1 tablet (81 mg ) by oral route once daily BusPIRone HCl [facility] [address]-08 15 MG Orally Twice a day prn 1/2- 1 tablet Lisinopril [facility] [address]-90 5 MG take 1 tablet by Oral route 1 time per day for blood pressure Clonidine HCl [facility] [address]-84 0.1 MG Orally 2 times a day 1 tablet Ventolin HFA [facility] [address]-69 90 mcg/actuation September 30, 2012 inhale 2 puffs by Inhalation route as needed every 4-6 hours PRN for cough or wheeze Nitroglycerin [facility] [address]-17 0.4 mg Mar 03, 2013 place 1 tablet by Sublingual route every 15 minutes minutes for chest pain; Max 3 tabs in 15 min PRN Procedures Procedure Coding System Code Date Office Visit, Est Pt., Level 4 CPT-4 40178 May 15, 2015 Vital Signs Date/Time: May 15, 2015 Temperature 98.5 F Weight 160.9 lbs Height 64 in BMI 27.62 Index Blood Pressure Diastolic 57 mmHg Blood Pressure Systolic 110 mmHg Cardiac Monitoring Heart Rate 72 bpm Results No Known Results Summary Purpose eClinicalWorks Submission
--- OUTSIDE RECORDS SUMMARY | 2016-12-02 05:09 | XMS REPORT ---
Author Author TATY PURVIS [facility] eClinicalWorks Address Unknown Phone Unavailable Care Team Providers Care Sales Development Representative Name Role Phone TATY PURVIS CP Unavailable Allergies, Adverse Reactions, Alerts Substance Reaction Event Type Metformin HCl Info Not Available Drug Allergy Iodine Info Not Available Drug Allergy Biaxin Info Not Available Drug Allergy Problems Problem Type Condition Code Onset Dates Condition Status Problem alf current use of insulin Z79.4 Active Assessment Alteration in mobility due to weakness R53.1 Active Problem Mixed hyperlipidemia E78.2 Active Assessment Abdominal pain, right lateral R10.9 Active Problem Type 2 diabetes mellitus with diabetic neuropathy E11.40 Active Problem Depression F32.9 Active Problem 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.49 Active Problem Hypomagnesemia E83.42 Active Problem Tremor R25.1 Active Assessment Tremor R25.1 Active Assessment Hypokalemia E87.6 Active Problem Memory loss R41.3 Active Assessment Hypomagnesemia E83.42 Active Problem Hypokalemia E87.6 Active Problem Primary insomnia F51.01 Active Problem Vision changes H53.9 Active Problem Daytime hypersomnia G47.19 Active Problem Anxiety F41.9 Active Problem Neuropathy G62.9 Active Assessment Memory loss R41.3 Active Problem Abnormal carotid ultrasound R93.8 Active Problem Atherosclerotic heart disease of [place] coronary artery without angina pectoris I25.10 Active Problem Chronic obstructive pulmonary disease, unspecified COPD type J44.9 Active Problem Hypertension I10 Active Problem Tobacco abuse Z72.0 Active Medications Medication Code System Code Instructions Start Date End Date Status Dosage Klor-Con M20 [facility] [address]-73 20 MEQ Orally Once a day 1 tablet Ventolin HFA [facility] [address]-76 90 mcg/actuation Inhalation as directed inhale 2 puffs by Inhalation route as needed every 4-6 hours PRN for cough or wheeze Rozerem [facility] [address]-42 8 MG Orally Once a day Jan 08, 2016 1 tablet at bedtime as needed Celexa [facility] [address]-51 20 mg Orally Once a day 1 tablet Symbicort [facility] [address]-64 160-4.5 mcg/actuation Inhalation Twice a day inhale 2 puffs by inhalation route 2 times per day in the morning and evening Oxygen ND 0 & Tubing per nasal cannula at night. 2 liters Lisinopril [facility] [address]-99 5 mg oral daily take 1 tablet by Oral route 1 time per day for blood pressure Wheelchair [facility] [address] - Feb 27, 2016 as directed Selina Goddard [facility] [address]-43 300 UNIT/ML Subcutaneous Once a day Jan 30, 2016 14 units Gabapentin [facility] [address]-25 600 MG Orally Three times a day Jan 08, 2016 1 tablet Procedures Procedure Coding System Code Date Office Visit, Est Pt., Level 5 CPT-4 17621 Feb 27, 2016 Vital Signs Date/Time: Feb 27, 2016 Cardiac Monitoring Heart Rate 80 bpm Weight 158.7 lbs Height 64 in BMI 27.24 Index Blood Pressure Diastolic 60 mmHg Blood Pressure Systolic 92 mmHg Results Name Result Date Reference Range Unit Abnormality Flag Ultrasound : Abdominal, COMPLETE Summary Purpose eClinicalWorks Submission
--- OUTSIDE RECORDS SUMMARY | 2016-12-02 05:09 | XMS REPORT ---
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
--- OUTSIDE RECORDS SUMMARY | 2016-12-02 05:09 | XMS REPORT ---
Author Author TATY PURVIS [facility] eClinicalWorks Address Unknown Phone Unavailable Care Team Providers Care Laborer Dairy Farm Name Role Phone TATY PURVIS CP Unavailable [...] Active Problem Mixed hyperlipidemia E78.2 Active Problem custodial current use of insulin Z79.4 Active Problem Type 2 diabetes mellitus with diabetic neuropathy E11.40 Active Problem Tobacco abuse Z72.0 Active Problem Hypertension I10 Active Problem Chronic obstructive pulmonary disease, unspecified COPD type J44.9 Active Problem Atherosclerotic heart disease of [place] coronary artery without angina pectoris I25.10 Active Assessment Tobacco abuse Z72.0 Active Assessment Atherosclerotic heart disease of [place] coronary artery without angina pectoris I25.10 Active Assessment Anxiety F41.9 Active Assessment Neuropathy G62.9 Active Assessment Mixed hyperlipidemia E78.2 Active Assessment Type 2 diabetes mellitus with diabetic neuropathy E11.40 Active Assessment Chronic obstructive pulmonary disease, unspecified COPD type J44.9 Active Assessment Hypertension I10 Active Assessment custodial current use of insulin Z79.4 Active Problem Coronary atherosclerosis of unspecified type of vessel, [place] or graft 414.00 Active Medications Medication Code System Code Instructions Start Date End Date Status Dosage Nitroglycerin [facility] [address]-79 0.4 mg Mar 03, 2013 place 1 tablet by Sublingual route every 15 minutes minutes for chest pain; Max 3 tabs in 15 min PRN Metoprolol Tartrate [facility] [address]-79 50 MG Orally Once a day x 7 dyas then bid 1 tablet Levemir [facility] [address]-80 100 UNIT/ML Subcutaneous 2 times a day August 15, 2014 15 units Ventolin HFA [facility] [address]-87 90 mcg/actuation September 30, 2012 inhale 2 puffs by Inhalation route as needed every 4-6 hours PRN for cough or wheeze Lisinopril [facility] [address]-44 5 mg May 09, 2014 take 1 tablet by Oral route 1 time per day for blood pressure BusPIRone HCl [facility] [address]-87 15 MG Orally Twice a day prn Mar 20, 2015 1/2 1 tablet Procedures Procedure Coding System Code Date ASSAY THYROID STIM HORMONE CPT-4 47517 Mar 20, 2015 COMPREHEN METABOLIC PANEL CPT-4 40060 Mar 20, 2015 GLYCATED HEMOGLOBIN TEST CPT-4 22874 Mar 20, 2015 VENIPUNCT, ROUTINE* CPT-4 45712 Mar 20, 2015 COMPLETE CBC W/AUTO DIFF WBC CPT-4 36945 Mar 20, 2015 ASSAY OF MAGNESIUM CPT-4 70517 Mar 20, 2015 Office Visit, Est Pt., Level 5 CPT-4 05105 Mar 20, 2015 VITAMIN B-12 CPT-4 81454 Mar 20, 2015 Vital Signs Date/Time: Mar 20, 2015 Temperature 97.0 F Weight 166.4 lbs Height 64 in BMI 28.56 Index Blood Pressure Diastolic 71 mmHg Blood Pressure Systolic 174 mmHg Cardiac Monitoring Heart Rate 78 bpm Results Name Result Date Reference Range Unit Abnormality Flag A1C (IN HOUSE) Summary Purpose eClinicalWorks Submission
--- OUTSIDE RECORDS SUMMARY | 2016-12-02 05:10 | XMS REPORT ---
Author Author TATY PURVIS [facility] eClinicalWorks Address Unknown Phone Unavailable Care Team Providers Care Wrapper Off Name Role Phone TATY PURIVS CP Unavailable Allergies No Known Allergies Problems Problem Type Condition Code Onset Dates Condition Status Problem Primary insomnia F51.01 Active Problem Hypokalemia E87.6 Active Problem Diarrhea R19.7 Active Problem Hypomagnesemia E83.42 Active Problem Anxiety F41.9 Active Problem Tremor R25.1 Active Problem Coronary atherosclerosis of unspecified type of vessel, [place] or graft 414.00 Active Problem Memory loss R41.3 Active Problem Abdominal pain, right lateral R10.9 Active Problem Daytime hypersomnia G47.19 Active Problem Alteration in mobility due to weakness R53.1 Active Problem Vision changes H53.9 Active Problem Tobacco abuse Z72.0 Active Problem Atherosclerotic heart disease of [place] coronary artery without angina pectoris I25.10 Active Problem Neuropathy G62.9 Active Problem Hypertension I10 Active Problem Mixed hyperlipidemia E78.2 Active Problem Type 2 diabetes mellitus with diabetic neuropathy E11.40 Active Problem Chronic obstructive pulmonary disease, unspecified COPD type J44.9 Active Problem 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.49 Active Problem intermediate current use of insulin Z79.4 Active Problem Depression F32.9 Active Medications Medication Code System Code Instructions Start Date End Date Status Dosage Atorvastatin Calcium [facility] [address]-65 40 mg Orally Once a day Mar 05, 2016 1 tablet Results No Known Results Summary Purpose eClinicalWorks Submission
--- OUTSIDE RECORDS SUMMARY | 2016-12-02 05:10 | XMS REPORT ---
Author Author TATY PURVIS [facility] eClinicalWorks Address Unknown Phone Unavailable Care Team Providers Care Fitting Room Supervisor Name Role Phone TATY PURVIS CP Unavailable Allergies No Known Allergies Problems Problem Type Condition Code Onset Dates Condition Status Problem Anxiety F41.9 Active Problem Hypertension I10 Active Problem Neuropathy G62.9 Active Problem Coronary atherosclerosis of unspecified type of vessel, [place] or graft 414.00 Active Problem Major depressive disorder, single episode, severe, without mention of psychotic behavior 296.23 Active Problem Type 2 diabetes mellitus with diabetic neuropathy E11.40 Active Problem Mixed hyperlipidemia E78.2 Active Problem Depression F32.9 Active Problem Atherosclerotic heart disease of [place] coronary artery without angina pectoris I25.10 Active Problem Tobacco abuse Z72.0 Active 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 [address]-58 15 MG Orally Twice a day prn Mar 20, 2015 1/2 1 tablet Results No Known Results Summary Purpose eClinicalWorks Submission
--- OUTSIDE RECORDS SUMMARY | 2016-12-02 05:10 | XMS REPORT ---
Author Author TATY PURVIS [facility] Address [address] [place] [address] Care Team Providers Care Shipyard Painter Name Role Phone TATY PURVIS Unavailable PROBLEMS Type Condition ICD9-CM Code [id number] Code Onset Dates Condition Status SNOMED Code Problem longterm current use of insulin Z79.4 Active 018050183 Problem Type 2 diabetes mellitus with diabetic neuropathy E11.40 Active 06594798 Problem Mixed hyperlipidemia E78.2 Active 194218025 Problem Vision changes H53.9 Active 38180650 Problem Daytime hypersomnia G47.19 Active 79174166535006 Problem Depression F32.9 Active 87218020 Problem 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.49 Active 398728252 Problem Hypokalemia E87.6 Active 44264973 Problem Primary insomnia F51.01 Active 3749788 Assessment 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.49 Jan, Active 965143714 Problem Abnormal carotid ultrasound R93.8 Active 419574616 Assessment Abdominal pain, right lateral R10.9 Jan, Active 596850089 Problem Hypertension I10 Active 03618375 Problem Tobacco abuse Z72.0 Active 16000355 Problem Anxiety F41.9 Active 19160295 Problem Atherosclerotic heart disease of [place] coronary artery without angina pectoris I25.10 Active 0412376821747 Problem Neuropathy G62.9 Active 748162972 Problem Chronic obstructive pulmonary disease, unspecified COPD type J44.9 Active 60720318 ALLERGIES Substance Reaction Event Type Date Status Metformin HCl Unknown Drug Allergy Jan, Active Iodine Unknown Drug Allergy Jan, Active Biaxin Unknown Drug Allergy Jan, Active SOCIAL HISTORY No smoking Hx information available PLAN OF CARE VITAL SIGNS Height 64 in 2016-01-30 Weight 158.0 lbs 2016-01-30 Heart Rate 70 bpm 2016-01-30 Respiratory Rate 20 2016-01-30 BMI 27.12 kg/m2 2016-01-30 Blood pressure systolic 108 mmHg 2016-01-30 Blood pressure diastolic 68 mmHg 2016-01-30 MEDICATIONS Medication Instructions Dosage Frequency Start Date End Date Duration Status Gabapentin 300 MG Orally Three times a day 2 capsules 8h Active Celexa 20 mg Orally Once a day 1 tablet 24h Active Lisinopril 5 mg oral daily take 1 tablet by Oral route 1 time per day for blood pressure 24h 90 days Active Rozerem 8 MG Orally Once a day 1 tablet at bedtime as needed 24h Dec, 30 days Active Klor-Con M20 20 MEQ Orally Once a day 1 tablet 24h Active Symbicort 160-4.5 mcg/actuation Inhalation Twice a day inhale 2 puffs by inhalation route 2 times per day in the morning and evening 12h Active Ventolin HFA 90 mcg/actuation Inhalation as directed inhale 2 puffs by Inhalation route as needed every 4-6 hours PRN for cough or wheeze Active Gabapentin 600 MG Orally Three times a day 1 tablet 8h Dec, 30 day(s) Active NovoLog 100 UNIT/ML Subcutaneous three times a day 7 units with meals 8h Active Oxygen & Tubing 2 liters Active BD Pen Needle Rox U/F 32G X 4 MM subcutaneously 2 times a day as directed 12h Active Toujeo SoloStar 300 UNIT/ML Subcutaneous Once a day 14 units 24h Jan, Active RESULTS Name Result Date Reference Range TSH 2016-01-30 TSH 0.826 0.450-4.500 CBC 2016-01-30 WBC 7.4 3.4-10.8 RBC 4.90 3.77-5.28 Hemoglobin 13.9 11.1-15.9 Hematocrit 39.7 34.0-46.6 MCV 81 79-97 MCH 28.4 26.6-33.0 MCHC 35.0 31.5-35.7 RDW 16.2 12.3-15.4 Platelets 274 150-379 Neutrophils 59 Lymphs 34 Monocytes 5 Eos 2 Basos 0 Neutrophils (Absolute) 4.4 1.4-7.0 Lymphs (Absolute) 2.6 0.7-3.1 Monocytes(Absolute) 0.4 0.1-0.9 Eos (Absolute) 0.2 0.0-0.4 Baso (Absolute) 0.0 0.0-0.2 Immature Granulocytes 0 Immature Grans (Abs) 0.0 0.0-0.1 CMP 2016-01-30 Glucose, Serum 381 65-99 BUN 15 6-24 Creatinine, Serum 1.05 0.57-1.00 eGFR If NonAfricn Am 59 >59 eGFR If Africn Am 68 >59 BUN/Creatinine Ratio 14 9-23 Sodium, Serum 138 134-144 Potassium, Serum 3.0 3.5-5.2 Chloride, Serum 92 97-108 Carbon Dioxide, Total 27 18-29 Calcium, Serum 9.0 8.7-10.2 Protein, Total, Serum 6.1 6.0-8.5 Albumin, Serum 3.6 3.5-5.5 Globulin, Total 2.5 1.5-4.5 A/G Ratio 1.4 1.1-2.5 Bilirubin, Total 0.2 0.0-1.2 Alkaline Phosphatase, S 88 39-117 AST (SGOT) 11 0-40 ALT (SGPT) 6 0-32 GLUCOSE FINGERSTICK (IN HOUSE) 2016-01-30 GLU FINGERSTICK 238 PC Lot # [id number] Exp date 04/06/2016 Xray : Abdomen (IN HOUSE) 2016-01-30 PROCEDURES Procedure Date Ordered Related Diagnosis Body Site LAB NOT BILLED [facility] Jan 30, 2016 GLUCOSE BLOOD TEST Jan 30, 2016 Office Visit, Est Pt., Level 5 Jan 30, 2016 X-RAY EXAM OF ABDOMEN Jan 30, 2016 VENIPUNCT, ROUTINE* Jan 30, 2016 IMMUNIZATIONS No Known Immunizations
--- OUTSIDE RECORDS SUMMARY | 2016-12-02 05:11 | XMS REPORT ---
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 Active 463468177 Problem Type 2 diabetes mellitus with diabetic neuropathy E11.40 Active 00907939 Problem Mixed hyperlipidemia E78.2 Active 904665014 Problem Vision changes H53.9 Active 97475767 Problem Daytime hypersomnia G47.19 Active 72986132881410 Problem Depression F32.9 Active 65379707 Problem 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.49 Active 834899908 Problem Hypokalemia E87.6 Active 12546058 Problem Primary insomnia F51.01 Active 0741943 Problem Abnormal carotid ultrasound R93.8 Active 392904747 Problem Hypertension I10 Active 84564529 Problem Tobacco abuse Z72.0 Active 98668675 Problem Anxiety F41.9 Active 57025785 Problem Atherosclerotic heart disease of [place] coronary artery without angina pectoris I25.10 Active 9462728713332 Problem Neuropathy G62.9 Active 405087007 Problem Chronic obstructive pulmonary disease, unspecified COPD type J44.9 Active 90104965 ALLERGIES Unknown Allergies SOCIAL HISTORY No smoking Hx information available PLAN OF CARE VITAL SIGNS MEDICATIONS Unknown Medications RESULTS No Results PROCEDURES No Known procedures IMMUNIZATIONS No Known Immunizations
--- OUTSIDE RECORDS SUMMARY | 2016-12-02 05:11 | XMS REPORT ---
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.4 Active Problem Chronic obstructive pulmonary disease, unspecified COPD type J44.9 Active Assessment Anxiety F41.9 Active Assessment Hypertension I10 Active Assessment Type 2 diabetes mellitus with diabetic neuropathy E11.40 Active Assessment Depression F32.9 Active Assessment Atherosclerotic heart disease of [place] coronary artery without angina pectoris I25.10 Active Problem Coronary atherosclerosis of unspecified type of vessel, [place] or graft 414.00 Active Assessment Chronic obstructive pulmonary disease, unspecified COPD type J44.9 Active Problem Major depressive disorder, single episode, severe, without mention of psychotic behavior 296.23 Active Medications Medication Code System Code Instructions Start Date End Date Status Dosage Lisinopril [facility] [address]-94 5 MG May 09, 2014 take 1 tablet by Oral route 1 time per day for blood pressure Levemir [facility] [address]-20 100 UNIT/ML Subcutaneous 2 times a day August 15, 2014 15 units Potassium Chloride [facility] [address]-11 20 MEQ/15ML (10%) Orally Once a day Mar 27, 2015 Apr 26, 2015 15 ml Celexa [facility] [address]-39 20 MG Orally Once a day Apr 06, 2015 1 tablet BusPIRone HCl [facility] [address]-60 15 MG Orally Twice a day prn Mar 20, 2015 1/2 1 tablet Clonidine HCl [facility] [address]-55 0.1 MG Orally 2 times a day Apr 06, 2015 1 tablet Magnesium Oxide [facility] 04142-80985 250 MG Orally Once a day Mar 23, 2015 Apr 22, 2015 1 tablet Nitroglycerin [facility] [address]-36 0.4 mg Mar 03, 2013 place 1 tablet by Sublingual route every 15 minutes minutes for chest pain; Max 3 tabs in 15 min PRN Ventolin HFA [facility] [address]-15 90 mcg/actuation September 30, 2012 inhale 2 puffs by Inhalation route as needed every 4-6 hours PRN for cough or wheeze Procedures Procedure Coding System Code Date Office Visit, Est Pt., Level 4 CPT-4 45755 Apr 06, 2015 Vital Signs Date/Time: Apr 06, 2015 Temperature 98.3 F Weight 166.8 lbs Height 64 in BMI 28.63 Index Blood Pressure Diastolic 88 mmHg Blood Pressure Systolic 174 mmHg Cardiac Monitoring Heart Rate 72 bpm Results No Known Results Summary Purpose eClinicalWorks Submission
--- OUTSIDE RECORDS SUMMARY | 2016-12-02 05:11 | XMS REPORT ---
Author Author TATY PURVIS [facility] eClinicalWorks Address Unknown Phone Unavailable Care Team Providers Care Manager Of Financial Name Role Phone TATY PURVIS CP Unavailable Allergies No Known Allergies Problems Problem Type Condition Code Onset Dates Condition Status Problem Major depressive disorder, single episode, severe, without mention of psychotic behavior 296.23 Active Problem Neuropathy G62.9 Active Problem Anxiety F41.9 Active Problem Coronary atherosclerosis of unspecified type of vessel, [place] or graft 414.00 Active Problem Mixed hyperlipidemia E78.2 Active 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
--- OUTSIDE RECORDS SUMMARY | 2016-12-02 05:11 | XMS REPORT ---
Author Author TATY PURVIS [facility] eClinicalWorks Address Unknown Phone Unavailable Care Team Providers Care Finish Carpenter Name Role Phone TATY PURVIS CP Unavailable Allergies, Adverse Reactions, Alerts Substance Reaction Event Type Metformin HCl Info Not Available Drug Allergy Iodine Info Not Available Drug Allergy Biaxin Info Not Available Drug Allergy Problems Problem Type Condition Code Onset Dates Condition Status Problem Tobacco abuse Z72.0 Active Assessment Primary insomnia F51.01 Active Problem Atherosclerotic heart disease of [place] coronary artery without angina pectoris I25.10 Active Assessment Hypokalemia E87.6 Active Problem Chronic obstructive pulmonary disease, unspecified COPD type J44.9 Active Problem Mixed hyperlipidemia E78.2 Active 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 Z79.4 Active Problem Hypokalemia E87.6 Active Problem Diarrhea R19.7 Active Assessment Neuropathy G62.9 Active Assessment Depression F32.9 Active Problem Daytime hypersomnia G47.19 Active Assessment Diarrhea R19.7 Active Problem 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.49 Active Problem Type 2 diabetes mellitus with diabetic neuropathy E11.40 Active Problem Primary insomnia F51.01 Active Problem Depression F32.9 Active Assessment tub tender current use of insulin Z79.4 Active Assessment 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.49 Active Assessment Hypertension I10 Active Assessment Chronic obstructive pulmonary disease, unspecified COPD type J44.9 Active Problem Neuropathy G62.9 Active Problem Hypertension I10 Active Problem Coronary atherosclerosis of unspecified type of vessel, [place] or graft 414.00 Active Problem Anxiety F41.9 Active Medications Medication Code System Code Instructions Start Date End Date Status Dosage Symbicort [facility] [address]-14 160-4.5 mcg/actuation Inhalation Twice a day September 28, 2012 inhale 2 puffs by inhalation route 2 times per day in the morning and evening Nitroglycerin [facility] [address]-32 0.4 mg Mar 03, 2013 place 1 tablet by Sublingual route every 15 minutes minutes for chest pain; Max 3 tabs in 15 min PRN BD Pen Needle Rox U/F [facility] 8290-725395 32G X 4 MM subcutaneously 2 times a day November 21, 2015 as directed Celexa [facility] [address]-68 20 mg Orally Once a day 1 tablet NovoLog [facility] [address]-94 100 UNIT/ML Subcutaneous three times a day 7 units with meals Aspirin [facility] [address]-76 81 mg Jan 21, 2012 chew 1 tablet (81 mg ) by oral route once daily Clonidine HCl [facility] [address]-81 0.1 MG Orally 2 times a day- must last 28 days 1 tablet Gabapentin [facility] [address]-32 300 MG Orally Three times a day 2 capsules Lunesta [facility] [address]-54 1 MG Orally Once a day 1 tablet immediately before bedtime Insulin Detemir [facility] [address]-23 100 UNIT/ML Subcutaneous 2 times a day November 21, 2015 35 units Klor-Con M20 [facility] [address]-48 20 MEQ Orally Once a day Mar 23, 2015 1 tablet Dicyclomine HCl [facility] [address]-11 10 mg Orally 2 times a day Jun 08, 2016 1 capsules Lisinopril [facility] [address]-37 5 mg oral daily take 1 tablet by Oral route 1 time per day for blood pressure Oxygen ND 0 & Tubing per nasal cannula at night. October 12, 2015 2 liters Ventolin HFA [facility] [address]-76 90 mcg/actuation Inhalation as directed September 30, 2012 inhale 2 puffs by Inhalation route as needed every 4-6 hours PRN for cough or wheeze Procedures Procedure Coding System Code Date LAB NOT BILLED BY [facility] CPT-4 NOBLL December 11, 2015 Office Visit, Est Pt., Level 4 CPT-4 17554 December 11, 2015 GLYCATED HEMOGLOBIN TEST CPT-4 52928 December 11, 2015 VENIPUNCT, ROUTINE* CPT-4 73153 December 11, 2015 Vital Signs Date/Time: December 11, 2015 Cardiac Monitoring Heart Rate 68 bpm Weight 169.0 lbs Height 64 in Blood Pressure Diastolic 70 mmHg Blood Pressure Systolic 118 mmHg Results No Known Results Summary Purpose eClinicalWorks Submission
--- OUTSIDE RECORDS SUMMARY | 2016-12-02 05:15 | XMS REPORT | Continuity of Care Document ---
Author Author [facility] Address Unknown Phone Unavailable Allergies Active Description Code Type Severity Reaction Onset Reported/Identified Relationship to Patient Clinical Status Yes Biaxin Drug Allergy N/A N/A 02/20/2012 Yes iodine Drug Allergy N/A N/A 02/20/2012 Yes Biaxin Drug Allergy 02/20/2012 Yes iodine Drug Allergy 02/20/2012 Yes metformin 1,000 mg tablet Drug Allergy N/A N/A 11/08/2012 Yes TAPE TAPE Unknown N/A 04/26/2014 Yes clarithromycin [id number] Drug Allergy Unknown N/A 05/24/2016 Yes iodine [id number] Drug Allergy Unknown N/A 05/24/2016 Yes metformin [id number] Drug Allergy Unknown N/A 05/24/2016 Medications Problems Date Dx Coded Attending Type Code Diagnosis Diagnosed By 10/03/2010 Ot 708.9 URTICARIA NOS 10/03/2010 Ot 782.1 NONSPECIF SKIN ERUPT NEC 01/21/2012 250.00 DIABETES II CONTROLLED (UNCOMPLICATED) 01/21/2012 780.79 MALAISE AND FATIGUE 01/21/2012 250.00 DIABETES II CONTROLLED (UNCOMPLICATED) 01/21/2012 780.79 MALAISE AND FATIGUE 01/21/2012 250.00 DIABETES II CONTROLLED (UNCOMPLICATED) 01/21/2012 780.79 MALAISE AND FATIGUE 01/21/2012 250.00 DIABETES MELLITUS TYPE 2 01/21/2012 780.79 MALAISE AND FATIGUE 01/21/2012 LOYD NYE MD 250.00 DIABETES MELLITUS TYPE 2 01/21/2012 LOYD NYE MD 780.79 MALAISE AND FATIGUE 01/21/2012 LOYD NYE MD 250.00 DIABETES MELLITUS TYPE 2 01/21/2012 LOYD NYE MD 780.79 MALAISE AND FATIGUE 01/21/2012 LOYD NYE MD 250.00 DIABETES MELLITUS TYPE 2 01/21/2012 LOYD NYE MD 780.79 MALAISE AND FATIGUE 01/21/2012 ANAMARIA GARCIA, LUCIANO 250.00 DIABETES MELLITUS TYPE 2 01/21/2012 LUCIANO CONRAD MD 780.79 MALAISE AND FATIGUE 01/21/2012 ANAMARIA GARCIA, LUCIANO 250.00 DIABETES MELLITUS TYPE 2 01/21/2012 LUCIANO CONRAD MD 780.79 MALAISE AND FATIGUE 01/21/2012 LUCIANO CONRDA MD 250.00 DIABETES MELLITUS TYPE 2 01/21/2012 LUCIANO CONRAD MD 780.79 MALAISE AND FATIGUE 01/21/2012 PAVEL APPLIANCE COUNSELOR, PRAKASH S 250.00 DIABETES MELLITUS TYPE 2 01/21/2012 PAVEL ODELL PRAKASH S 780.79 MALAISE AND FATIGUE 01/21/2012 CARLOS ODELL, HOSEA R 250.00 DIABETES MELLITUS TYPE 2 01/21/2012 CARLOS ODELL, HOSEA R 780.79 MALAISE AND FATIGUE 01/21/2012 CARLOS ODELL, HOSEA R 250.00 DIABETES MELLITUS TYPE 2 01/21/2012 CARLOS ODELL, HOSEA R 780.79 MALAISE AND FATIGUE 01/21/2012 CARLOS RODRIGUEZN, HOSEA R 250.00 DIABETES MELLITUS TYPE 2 01/21/2012 CARLOS RODRIGUEZN, HOSEA R 780.79 MALAISE AND FATIGUE 01/21/2012 YANIV ODELL, TATY L 250.00 DIABETES MELLITUS TYPE 2 01/21/2012 YANIV ODELL, TATY L 780.79 MALAISE AND FATIGUE 01/21/2012 CARLOS ODELL, HOSEA R 250.00 DIABETES MELLITUS TYPE 2 01/21/2012 CARLOS RODRIGUEZN, HOSEA R 780.79 MALAISE AND FATIGUE 01/21/2012 CARLOS RODRIGUEZN, HOSEA R 250.00 DIABETES MELLITUS TYPE 2 01/21/2012 CARLOS RODRIGUEZN, HOSEA R 780.79 MALAISE AND FATIGUE 01/21/2012 CARLOS RODRIGUEZN, HOSEA R 250.00 DIABETES MELLITUS TYPE 2 01/21/2012 CARLOS RODRIGUEZN, HOSEA R 780.79 MALAISE AND FATIGUE 01/21/2012 LIMA DO, SUKHDEEP K 250.00 DIABETES MELLITUS TYPE 2 01/21/2012 LIMA DO, SUKHDEEP K 780.79 MALAISE AND FATIGUE 01/21/2012 LELA LCMF, JUDAH W 250.00 DIABETES MELLITUS TYPE 2 01/21/2012 [facility], JUDAH W 780.79 MALAISE AND FATIGUE 01/21/2012 CARLOS APPLIANCE COUNSELOR, HOSEA R 250.00 DIABETES MELLITUS TYPE 2 01/21/2012 CARLOS APPLIANCE COUNSELOR, HOSEA R 780.79 MALAISE AND FATIGUE 01/21/2012 CARLOS APPLIANCE COUNSELOR, HOSEA R 250.00 DIABETES MELLITUS TYPE 2 01/21/2012 CARLOS APPLIANCE COUNSELOR, HOSEA R 780.79 MALAISE AND FATIGUE 01/21/2012 CARLOS APPLIANCE COUNSELOR, HOSEA R 250.00 DIABETES MELLITUS TYPE 2 01/21/2012 CARLOS APPLIANCE COUNSELOR, HOSEA R 780.79 MALAISE AND FATIGUE 01/21/2012 ANAMARIA GARCIA, LUCIANO 250.00 DIABETES MELLITUS TYPE 2 01/21/2012 LUCIANO CONRAD MD 780.79 MALAISE AND FATIGUE 01/21/2012 CARLOS RODRIGUEZN, HOSEA R 250.00 DIABETES MELLITUS TYPE 2 01/21/2012 CARLOS RODRIGUEZN, HOSEA R 780.79 MALAISE AND FATIGUE 01/21/2012 CARLOS RODRIGUEZN, HOSEA R 250.00 DIABETES MELLITUS TYPE 2 01/21/2012 CARLOS APPLIANCE COUNSELOR, HOSEA R 780.79 MALAISE AND FATIGUE 02/20/2012 078.19 WARTS, COMMON 02/20/2012 380.4 CERUMEN IMPACTION 02/20/2012 V81.0 HEART DISEASE SCREENING 02/20/2012 078.19 WARTS, COMMON 02/20/2012 380.4 CERUMEN IMPACTION 02/20/2012 V81.0 HEART DISEASE SCREENING 02/20/2012 078.19 WARTS, COMMON 02/20/2012 380.4 CERUMEN IMPACTION 02/20/2012 V81.0 HEART DISEASE SCREENING 02/20/2012 078.19 WARTS, COMMON 02/20/2012 380.4 CERUMEN IMPACTION 02/20/2012 V81.0 HEART DISEASE SCREENING 02/20/2012 LOYD NYE MD 078.19 WARTS, COMMON 02/20/2012 LOYD NYE MD 380.4 CERUMEN IMPACTION 02/20/2012 LOYD NYE MD V81.0 HEART DISEASE SCREENING 02/20/2012 LOYD NYE MD 078.19 WARTS, COMMON 02/20/2012 PARRIS GARCIA, LOYD Enriquez 380.4 CERUMEN IMPACTION 02/20/2012 PARRIS GARCIA, LOYD Enriquez V81.0 HEART DISEASE SCREENING 02/20/2012 PARRIS GARCIA, LOYD Enriquez 078.19 WARTS, COMMON 02/20/2012 PARRIS GARCIA, LOYD Enriquez 380.4 CERUMEN IMPACTION 02/20/2012 PARRIS GARCIA, LOYD Enriquez V81.0 HEART DISEASE SCREENING 02/20/2012 ANAMARIA GARCIA, LUCIANO 078.19 WARTS, COMMON 02/20/2012 ANAMARIA GARCIA, LUCIANO 380.4 CERUMEN IMPACTION 02/20/2012 ANAMARIA GARCIA, LUCIANO V81.0 HEART DISEASE SCREENING 02/20/2012 ANAMARIA GARCIA, LUCIANO 078.19 WARTS, COMMON 02/20/2012 ANAMARIA GARCIA, LUCIANO 380.4 CERUMEN IMPACTION 02/20/2012 ANAMARIA GARCIA, LUCIANO V81.0 HEART DISEASE SCREENING 02/20/2012 ANAMARIA GARCIA, LUCIANO 078.19 WARTS, COMMON 02/20/2012 LUCIANO CONRAD MD 380.4 CERUMEN IMPACTION 02/20/2012 LUCIANO CONRAD MD V81.0 HEART DISEASE SCREENING 02/20/2012 PAVEL ODELL, PRAKASH S 078.19 WARTS, COMMON 02/20/2012 PAVEL ODELL, PRAKASH S 380.4 CERUMEN IMPACTION 02/20/2012 PAVEL ODELL, PRAKASH S V81.0 HEART DISEASE SCREENING 02/20/2012 CARLOS APPLIANCE COUNSELOR, HOSEA R 078.19 WARTS, COMMON 02/20/2012 CARLOS APPLIANCE COUNSELOR, HOSEA R 380.4 CERUMEN IMPACTION 02/20/2012 CARLOS APPLIANCE COUNSELOR, HOSEA R V81.0 HEART DISEASE SCREENING 02/20/2012 CARLOS APPLIANCE COUNSELOR, HOSEA R 078.19 WARTS, COMMON 02/20/2012 CARLOS APPLIANCE COUNSELOR, HOSEA R 380.4 CERUMEN IMPACTION 02/20/2012 CARLOS APPLIANCE COUNSELOR, HOSEA R V81.0 HEART DISEASE SCREENING 02/20/2012 CARLOS APPLIANCE COUNSELOR, HOSEA R 078.19 WARTS, COMMON 02/20/2012 CARLOS APPLIANCE COUNSELOR, HOSEA R 380.4 CERUMEN IMPACTION 02/20/2012 CARLOS APPLIANCE COUNSELOR, HOSEA R V81.0 HEART DISEASE SCREENING 02/20/2012 MADL APPLIANCE COUNSELOR, TATY L 078.19 WARTS, COMMON 02/20/2012 MADL APPLIANCE COUNSELOR, TATY L 380.4 CERUMEN IMPACTION 02/20/2012 MADL APPLIANCE COUNSELOR, TATY L V81.0 HEART DISEASE SCREENING 02/20/2012 CARLOS APPLIANCE COUNSELOR, HOSEA R 078.19 WARTS, COMMON 02/20/2012 CARLOS APPLIANCE COUNSELOR, HOSEA R 380.4 CERUMEN IMPACTION 02/20/2012 CARLOS APPLIANCE COUNSELOR, HOSEA R V81.0 HEART DISEASE SCREENING 02/20/2012 CARLOS APPLIANCE COUNSELOR, HOSEA R 078.19 WARTS, COMMON 02/20/2012 CARLOS APPLIANCE COUNSELOR, HOSEA R 380.4 CERUMEN IMPACTION 02/20/2012 CARLOS APPLIANCE COUNSELOR, HOSEA R V81.0 HEART DISEASE SCREENING 02/20/2012 CARLOS APPLIANCE COUNSELOR, HOSEA R 078.19 WARTS, COMMON 02/20/2012 CARLOS APPLIANCE COUNSELOR, HOSEA R 380.4 CERUMEN IMPACTION 02/20/2012 CARLOS APPLIANCE COUNSELOR, HOSEA R V81.0 HEART DISEASE SCREENING 02/20/2012 LIMA DO, SUKHDEEP K 078.19 WARTS, COMMON 02/20/2012 LIMA DO, SUKHDEEP K 380.4 CERUMEN IMPACTION 02/20/2012 LIMA DO, SUKHDEEP K V81.0 HEART DISEASE SCREENING 02/20/2012 LELA LCMF, JUDAH W 078.19 WARTS, COMMON 02/20/2012 LELA LCMF, JUDAH W 380.4 CERUMEN IMPACTION 02/20/2012 LELA LCMF, JUDAH W V81.0 HEART DISEASE SCREENING 02/20/2012 CARLOS APPLIANCE COUNSELOR, HOSEA R 078.19 WARTS, COMMON 02/20/2012 CARLOS APPLIANCE COUNSELOR, HOSEA R 380.4 CERUMEN IMPACTION 02/20/2012 CARLOS APPLIANCE COUNSELOR, HOSEA R V81.0 HEART DISEASE SCREENING 02/20/2012 CARLOS APPLIANCE COUNSELOR, HOSEA R 078.19 WARTS, COMMON 02/20/2012 CARLOS APPLIANCE COUNSELOR, HOSEA R 380.4 CERUMEN IMPACTION 02/20/2012 CARLOS APPLIANCE COUNSELOR, HOSEA R V81.0 HEART DISEASE SCREENING 02/20/2012 CARLOS ODELL, HOSEA R 078.19 WARTS, COMMON 02/20/2012 CARLOS ODELL, HOSEA R 380.4 CERUMEN IMPACTION 02/20/2012 CARLOS ODELL, HOSEA R V81.0 HEART DISEASE SCREENING 02/20/2012 LUCIANO CONRAD MD 078.19 WARTS, COMMON 02/20/2012 ANAMARIA GARCIA, LUCIANO 380.4 CERUMEN IMPACTION 02/20/2012 LUCIANO CONRAD MD V81.0 HEART DISEASE SCREENING 02/20/2012 CARLOS RODRIGUEZN, HOSEA R 078.19 WARTS, COMMON 02/20/2012 CARLOS RODRIGUEZN, HOSEA R 380.4 CERUMEN IMPACTION 02/20/2012 CARLOS ODELL, HOSEA R V81.0 HEART DISEASE SCREENING 02/20/2012 CARLOS ODELL, HOSEA R 078.19 WARTS, COMMON 02/20/2012 CARLOS ODELL, HOSEA R 380.4 CERUMEN IMPACTION 02/20/2012 CARLOS ODELL, OHSEA R V81.0 HEART DISEASE SCREENING 02/23/2012 Ot 380.4 IMPACTED CERUMEN 02/23/2012 Ot 719.43 JOINT PAIN-FOREARM 06/23/2012 079.99 VIRAL SYNDROME 06/23/2012 079.99 VIRAL SYNDROME 06/23/2012 079.99 VIRAL SYNDROME 06/23/2012 079.99 VIRAL SYNDROME 06/23/2012 LOYD NYE MD 079.99 VIRAL SYNDROME 06/23/2012 LOYD NYE MD 079.99 VIRAL SYNDROME 06/23/2012 LOYD NYE MD 079.99 VIRAL SYNDROME 06/23/2012 LUCIANO CONRAD MD 079.99 VIRAL SYNDROME 06/23/2012 LUCIANO CONRAD MD 079.99 VIRAL SYNDROME 06/23/2012 LUCIANO CONRAD MD 079.99 VIRAL SYNDROME 06/23/2012 PRAKASH ZHAO APRN 079.99 VIRAL SYNDROME 06/23/2012 CARLOS ODELL, HOSEA R 079.99 VIRAL SYNDROME 06/23/2012 CARLOS ODELL, HOSEA R 079.99 VIRAL SYNDROME 06/23/2012 CARLOS ODELL, HOSEA R 079.99 VIRAL SYNDROME 06/23/2012 TATY PURVIS APRN 079.99 VIRAL SYNDROME 06/23/2012 CARLOS APPLIANCE COUNSELOR, HOSEA R 079.99 VIRAL SYNDROME 06/23/2012 CARLOS APPLIANCE COUNSELOR, HOSEA R 079.99 VIRAL SYNDROME 06/23/2012 CARLOS APPLIANCE COUNSELOR, HOSEA R 079.99 VIRAL SYNDROME 06/23/2012 JANIE SUKHDEEP NICHOLAS Shanice 079.99 VIRAL SYNDROME 06/23/2012 LELA [facility], JUDAH Kuo 079.99 VIRAL SYNDROME 06/23/2012 CARLOS APPLIANCE COUNSELOR, HOSEA R 079.99 VIRAL SYNDROME 06/23/2012 CARLOS APPLIANCE COUNSELOR, HOSEA R 079.99 VIRAL SYNDROME 06/23/2012 CARLOS APPLIANCE COUNSELOR, HOSEA R 079.99 VIRAL SYNDROME 06/23/2012 ANAMARIA GARCIA, LUCIANO 079.99 VIRAL SYNDROME 06/23/2012 CARLOS APPLIANCE COUNSELOR, HOSEA R 079.99 VIRAL SYNDROME 06/23/2012 CARLOS APPLIANCE COUNSELOR, HOSEA R 079.99 VIRAL SYNDROME 09/28/2012 305.1 NONDEPENDENT TOBACCO USE DISORDER 09/28/2012 461.9 SINUSITIS ACUTE 09/28/2012 466.0 BRONCHITIS, ACUTE 09/28/2012 V65.42 COUNSELING - SMOKING CESSATION 09/28/2012 305.1 NONDEPENDENT TOBACCO USE DISORDER 09/28/2012 461.9 SINUSITIS ACUTE 09/28/2012 466.0 BRONCHITIS, ACUTE 09/28/2012 V65.42 COUNSELING - SMOKING CESSATION 09/28/2012 305.1 NICOTINE DEPENDENCE 09/28/2012 461.9 SINUSITIS ACUTE 09/28/2012 466.0 BRONCHITIS, ACUTE 09/28/2012 V65.42 COUNSELING - SMOKING CESSATION 09/28/2012 LOYD NYE MD 305.1 NICOTINE DEPENDENCE 09/28/2012 LOYD NYE MD 461.9 SINUSITIS ACUTE 09/28/2012 LOYD NYE MD 466.0 BRONCHITIS, ACUTE 09/28/2012 LOYD NYE MD V65.42 COUNSELING - SMOKING CESSATION 09/28/2012 LOYD NYE MD 305.1 NICOTINE DEPENDENCE 09/28/2012 LOYD NYE MD 461.9 SINUSITIS ACUTE 09/28/2012 LOYD NYE MD 466.0 BRONCHITIS, ACUTE 09/28/2012 LOYD NYE MD V65.42 COUNSELING - SMOKING CESSATION 09/28/2012 PARRIS GARCIA, LOYD Enriquez 305.1 NICOTINE DEPENDENCE 09/28/2012 PARRIS GARCIA, LOYD Enriquez 461.9 SINUSITIS ACUTE 09/28/2012 PARRIS GARCIA, LOYD Enriquez 466.0 BRONCHITIS, ACUTE 09/28/2012 LOYD NYE MD V65.42 COUNSELING - SMOKING CESSATION 09/28/2012 LUCIANO CONRAD MD 305.1 NICOTINE DEPENDENCE 09/28/2012 LUCIANO CONRAD MD 461.9 SINUSITIS ACUTE 09/28/2012 LUCIANO CONRAD MD 466.0 BRONCHITIS, ACUTE 09/28/2012 LUCIANO CONRAD MD V65.42 COUNSELING - SMOKING CESSATION 09/28/2012 LUCIANO CONRAD MD 305.1 NICOTINE DEPENDENCE 09/28/2012 LUCIANO CONRAD MD 461.9 SINUSITIS ACUTE 09/28/2012 LUCIANO CONRAD MD 466.0 BRONCHITIS, ACUTE 09/28/2012 LUCIANO CONRAD MD V65.42 COUNSELING - SMOKING CESSATION 09/28/2012 LUCIANO CONRAD MD 305.1 NICOTINE DEPENDENCE 09/28/2012 LUCIANO CONRAD MD 461.9 SINUSITIS ACUTE 09/28/2012 LUCIANO CONRAD MD 466.0 BRONCHITIS, ACUTE 09/28/2012 LUCIANO CONRAD MD V65.42 COUNSELING - SMOKING CESSATION 09/28/2012 PAVEL ODELL, PRAKASH S 305.1 NICOTINE DEPENDENCE 09/28/2012 PAVEL APPLIANCE COUNSELOR, PRAKASH S 461.9 SINUSITIS ACUTE 09/28/2012 PAVEL ODELL, PRAKASH S 466.0 BRONCHITIS, ACUTE 09/28/2012 PAVEL APPLIANCE COUNSELOR, PRAKASH S V65.42 COUNSELING - SMOKING CESSATION 09/28/2012 CARLOS APPLIANCE COUNSELOR, HOSEA R 305.1 NICOTINE DEPENDENCE 09/28/2012 CARLOS APPLIANCE COUNSELOR, HOSEA R 461.9 SINUSITIS ACUTE 09/28/2012 CARLOS APPLIANCE COUNSELOR, HOSEA R 466.0 BRONCHITIS, ACUTE 09/28/2012 CARLOS APPLIANCE COUNSELOR, HOSEA R V65.42 COUNSELING - SMOKING CESSATION 09/28/2012 CARLOS APPLIANCE COUNSELOR, HOSEA R 305.1 NICOTINE DEPENDENCE 09/28/2012 CARLOS APPLIANCE COUNSELOR, HOSEA R 461.9 SINUSITIS ACUTE 09/28/2012 CARLOS APPLIANCE COUNSELOR, HOSEA R 466.0 BRONCHITIS, ACUTE 09/28/2012 CARLOS APPLIANCE COUNSELOR, HOSEA R V65.42 COUNSELING - SMOKING CESSATION 09/28/2012 CARLOS APPLIANCE COUNSELOR, HOSEA R 305.1 NICOTINE DEPENDENCE 09/28/2012 CARLOS APPLIANCE COUNSELOR, HOSEA R 461.9 SINUSITIS ACUTE 09/28/2012 CARLOS APPLIANCE COUNSELOR, HOSEA R 466.0 BRONCHITIS, ACUTE 09/28/2012 CARLOS APPLIANCE COUNSELOR, HOSEA R V65.42 COUNSELING - SMOKING CESSATION 09/28/2012 MADL APPLIANCE COUNSELOR, TATY L 305.1 NICOTINE DEPENDENCE 09/28/2012 MADL APPLIANCE COUNSELOR, TATY L 461.9 SINUSITIS ACUTE 09/28/2012 MADL APPLIANCE COUNSELOR, TATY L 466.0 BRONCHITIS, ACUTE 09/28/2012 MADL APPLIANCE COUNSELOR, TATY L V65.42 COUNSELING - SMOKING CESSATION 09/28/2012 CARLOS APPLIANCE COUNSELOR, HOSEA R 305.1 NICOTINE DEPENDENCE 09/28/2012 CARLOS APPLIANCE COUNSELOR, HOSEA R 461.9 SINUSITIS ACUTE 09/28/2012 CARLOS APPLIANCE COUNSELOR, HOSEA R 466.0 BRONCHITIS, ACUTE 09/28/2012 CARLOS APPLIANCE COUNSELOR, HOSEA R V65.42 COUNSELING - SMOKING CESSATION 09/28/2012 CARLOS APPLIANCE COUNSELOR, HOSEA R 305.1 NICOTINE DEPENDENCE 09/28/2012 CARLOS APPLIANCE COUNSELOR, HOSEA R 461.9 SINUSITIS ACUTE 09/28/2012 CARLOS APPLIANCE COUNSELOR, HOSEA R 466.0 BRONCHITIS, ACUTE 09/28/2012 CARLOS APPLIANCE COUNSELOR, HOSEA R V65.42 COUNSELING - SMOKING CESSATION 09/28/2012 CARLOS APPLIANCE COUNSELOR, HOSEA R 305.1 NICOTINE DEPENDENCE 09/28/2012 CARLOS APPLIANCE COUNSELOR, HOSEA R 461.9 SINUSITIS ACUTE 09/28/2012 CARLOS APPLIANCE COUNSELOR, HOSEA R 466.0 BRONCHITIS, ACUTE 09/28/2012 CARLOS APPLIANCE COUNSELOR, HOSEA R V65.42 COUNSELING - SMOKING CESSATION 09/28/2012 LIMA DO, SUKHDEEP K 305.1 NICOTINE DEPENDENCE 09/28/2012 LIMA DO, SUKHDEEP K 461.9 SINUSITIS ACUTE 09/28/2012 LIMA DO, SUKHDEEP K 466.0 BRONCHITIS, ACUTE 09/28/2012 LIMA DO, SUKHDEEP K V65.42 COUNSELING - SMOKING CESSATION 09/28/2012 LELA LCMF, JUDAH W 305.1 NICOTINE DEPENDENCE 09/28/2012 LELA LCMF, JUDAH W 461.9 SINUSITIS ACUTE 09/28/2012 LELA LCMF, JUDAH W 466.0 BRONCHITIS, ACUTE 09/28/2012 LELA LCMF, JUDAH W V65.42 COUNSELING - SMOKING CESSATION 09/28/2012 CARLOS APPLIANCE COUNSELOR, HOSEA R 305.1 NICOTINE DEPENDENCE 09/28/2012 CARLOS APPLIANCE COUNSELOR, HOSEA R 461.9 SINUSITIS ACUTE 09/28/2012 CARLOS APPLIANCE COUNSELOR, HOSEA R 466.0 BRONCHITIS, ACUTE 09/28/2012 CARLOS APPLIANCE COUNSELOR, HOSEA R V65.42 COUNSELING - SMOKING CESSATION 09/28/2012 CARLOS APPLIANCE COUNSELOR, HOSEA R 305.1 NICOTINE DEPENDENCE 09/28/2012 CARLOS APPLIANCE COUNSELOR, HOSEA R 461.9 SINUSITIS ACUTE 09/28/2012 CARLOS APPLIANCE COUNSELOR, HOSEA R 466.0 BRONCHITIS, ACUTE 09/28/2012 CARLOS APPLIANCE COUNSELOR, HOSEA R V65.42 COUNSELING - SMOKING CESSATION 09/28/2012 CARLOS APPLIANCE COUNSELOR, HOSEA R 305.1 NICOTINE DEPENDENCE 09/28/2012 CARLOS APPLIANCE COUNSELOR, HOSEA R 461.9 SINUSITIS ACUTE 09/28/2012 CARLOS APPLIANCE COUNSELOR, HOSEA R 466.0 BRONCHITIS, ACUTE 09/28/2012 CARLOS APPLIANCE COUNSELOR, HOSEA R V65.42 COUNSELING - SMOKING CESSATION 09/28/2012 ANAMARIA GARCIA, LUCIANO 305.1 NICOTINE DEPENDENCE 09/28/2012 LUCIANO CONRAD MD 461.9 SINUSITIS ACUTE 09/28/2012 LUCIANO CONRAD MD 466.0 BRONCHITIS, ACUTE 09/28/2012 LUCIANO CONRAD MD V65.42 COUNSELING - SMOKING CESSATION 09/28/2012 CARLOS APPLIANCE COUNSELOR, HOSEA R 305.1 NICOTINE DEPENDENCE 09/28/2012 CARLOS APPLIANCE COUNSELOR, HOSEA R 461.9 SINUSITIS ACUTE 09/28/2012 CARLOS APPLIANCE COUNSELOR, HOSEA R 466.0 BRONCHITIS, ACUTE 09/28/2012 CARLOS APPLIANCE COUNSELOR, HOSEA R V65.42 COUNSELING - SMOKING CESSATION 09/28/2012 CARLOS APPLIANCE COUNSELOR, HOSEA R 305.1 NICOTINE DEPENDENCE 09/28/2012 CARLOS APPLIANCE COUNSELOR, HOSEA R 461.9 SINUSITIS ACUTE 09/28/2012 CARLOS APPLIANCE COUNSELOR, HOSEA R 466.0 BRONCHITIS, ACUTE 09/28/2012 CARLOS APPLIANCE COUNSELOR, HOSEA R V65.42 COUNSELING - SMOKING CESSATION 10/08/2012 496 COPD 10/08/2012 496 CHRONIC OBSTRUCTIVE PULMONARY DISEASE 10/08/2012 LOYD NYE MD 496 CHRONIC OBSTRUCTIVE PULMONARY DISEASE 10/08/2012 LOYD NYE MD 496 CHRONIC OBSTRUCTIVE PULMONARY DISEASE 10/08/2012 LOYD NYE MD 496 CHRONIC OBSTRUCTIVE PULMONARY DISEASE 10/08/2012 LUCIANO CONRAD MD6 CHRONIC OBSTRUCTIVE PULMONARY DISEASE 10/08/2012 LUCIANO CONRAD MD6 CHRONIC OBSTRUCTIVE PULMONARY DISEASE 10/08/2012 LUCIANO CONRAD MD 496 CHRONIC OBSTRUCTIVE PULMONARY DISEASE 10/08/2012 PAVEL ODELL, PRAKASH S 496 CHRONIC OBSTRUCTIVE PULMONARY DISEASE 10/08/2012 CARLOS APPLIANCE COUNSELOR, HOSEA R 496 CHRONIC OBSTRUCTIVE PULMONARY DISEASE 10/08/2012 CARLOS APPLIANCE COUNSELOR, HOSEA R 496 CHRONIC OBSTRUCTIVE PULMONARY DISEASE 10/08/2012 CARLOS APPLIANCE COUNSELOR, HOSEA R 496 CHRONIC OBSTRUCTIVE PULMONARY DISEASE 10/08/2012 TATY PURVIS APRN 496 CHRONIC OBSTRUCTIVE PULMONARY DISEASE 10/08/2012 CARLOS APPLIANCE COUNSELOR, HOSEA R 496 CHRONIC OBSTRUCTIVE PULMONARY DISEASE 10/08/2012 CARLOS APPLIANCE COUNSELOR, HOSEA R 496 CHRONIC OBSTRUCTIVE PULMONARY DISEASE 10/08/2012 CARLOS APPLIANCE COUNSELOR, HOSEA R 496 CHRONIC OBSTRUCTIVE PULMONARY DISEASE 10/08/2012 SUKHDEEP LIMA DO 496 CHRONIC OBSTRUCTIVE PULMONARY DISEASE 10/08/2012 LELA MAGDALENO, JUDAH Kuo 496 CHRONIC OBSTRUCTIVE PULMONARY DISEASE 10/08/2012 CARLOS APPLIANCE COUNSELOR, HOSEA R 496 CHRONIC OBSTRUCTIVE PULMONARY DISEASE 10/08/2012 CARLOS APPLIANCE COUNSELOR, HOSEA R 496 CHRONIC OBSTRUCTIVE PULMONARY DISEASE 10/08/2012 CARLOS APPLIANCE COUNSELOR, HOSEA R 496 CHRONIC OBSTRUCTIVE PULMONARY DISEASE 10/08/2012 LUCIANO CONRAD MD 496 CHRONIC OBSTRUCTIVE PULMONARY DISEASE 10/08/2012 CARLOS APPLIANCE COUNSELOR, HOSEA R 496 CHRONIC OBSTRUCTIVE PULMONARY DISEASE 10/08/2012 CARLOS APPLIANCE COUNSELOR, HOSEA R 496 CHRONIC OBSTRUCTIVE PULMONARY DISEASE 12/17/2012 LOYD NYE MD 719.46 PAIN IN JOINT INVOLVING LOWER LEG 12/17/2012 LOYD NYE MD 719.46 PAIN IN JOINT INVOLVING LOWER LEG 12/17/2012 LOYD NYE MD 719.46 PAIN IN JOINT INVOLVING LOWER LEG 12/17/2012 LUCIANO CONRAD MD 719.46 PAIN IN JOINT INVOLVING LOWER LEG 12/17/2012 LUCIANO CONRAD MD 719.46 PAIN IN JOINT INVOLVING LOWER LEG 12/17/2012 LUCIANO CONRAD MD 719.46 PAIN IN JOINT INVOLVING LOWER LEG 12/17/2012 PRAKASH ZHAO APRN 719.46 PAIN IN JOINT INVOLVING LOWER LEG 12/17/2012 CARLOS APPLIANCE COUNSELOR, HOSEA R 719.46 PAIN IN JOINT INVOLVING LOWER LEG 12/17/2012 CARLOS APPLIANCE COUNSELOR, HOSEA R 719.46 PAIN IN JOINT INVOLVING LOWER LEG 12/17/2012 CARLOS APPLIANCE COUNSELOR, HOSEA R 719.46 PAIN IN JOINT INVOLVING LOWER LEG 12/17/2012 TATY PURVIS APRN 719.46 PAIN IN JOINT INVOLVING LOWER LEG 12/17/2012 CARLOS APPLIANCE COUNSELOR, HOSEA R 719.46 PAIN IN JOINT INVOLVING LOWER LEG 12/17/2012 CARLOS APPLIANCE COUNSELOR, HOSEA R 719.46 PAIN IN JOINT INVOLVING LOWER LEG 12/17/2012 CARLOS APPLIANCE COUNSELOR, HOSEA R 719.46 PAIN IN JOINT INVOLVING LOWER LEG 12/17/2012 SUKHDEEP LIMA DO 719.46 PAIN IN JOINT INVOLVING LOWER LEG 12/17/2012 [facility] Peterson 719.46 PAIN IN JOINT INVOLVING LOWER LEG 12/17/2012 CARLOS APPLIANCE COUNSELOR, HOSEA R 719.46 PAIN IN JOINT INVOLVING LOWER LEG 12/17/2012 CARLOS APPLIANCE COUNSELOR, HOSEA R 719.46 PAIN IN JOINT INVOLVING LOWER LEG 12/17/2012 CARLOS APPLIANCE COUNSELOR, HOSEA R 719.46 PAIN IN JOINT INVOLVING LOWER LEG 12/17/2012 LUCIANO CONRAD MD 719.46 PAIN IN JOINT INVOLVING LOWER LEG 12/17/2012 CARLOS APPLIANCE COUNSELOR, HOSEA R 719.46 PAIN IN JOINT INVOLVING LOWER LEG 12/17/2012 CARLOS APPLIANCE COUNSELOR, HOSEA R 719.46 PAIN IN JOINT INVOLVING LOWER LEG 12/21/2012 LOYD NYE MD 787.91 DIARRHEA 12/21/2012 LOYD NYE MD 787.91 DIARRHEA 12/21/2012 LOYD NYE MD 787.91 DIARRHEA 12/21/2012 LUCIANO CONRAD MD 787.91 DIARRHEA 12/21/2012 LUCIANO CONRAD MD 787.91 DIARRHEA 12/21/2012 LUCIANO CONRAD MD 787.91 DIARRHEA 12/21/2012 PRAKASH ZHAO APRN S 787.91 DIARRHEA 12/21/2012 CARLOS APPLIANCE COUNSELOR, HOSEA R 787.91 DIARRHEA 12/21/2012 CARLOS APPLIANCE COUNSELOR, HOSEA R 787.91 DIARRHEA 12/21/2012 CARLOS APPLIANCE COUNSELOR, HOSEA R 787.91 DIARRHEA 12/21/2012 TATY PURVIS APRN 787.91 DIARRHEA 12/21/2012 CARLOS APPLIANCE COUNSELOR, HOSEA R 787.91 DIARRHEA 12/21/2012 CARLOS APPLIANCE COUNSELOR, HOSEA R 787.91 DIARRHEA 12/21/2012 CARLOS APPLIANCE COUNSELOR, HOSEA R 787.91 DIARRHEA 12/21/2012 SUKHDEEP LIMA DO 787.91 DIARRHEA 12/21/2012 LELA MAGDALENOF, JUDAH W 787.91 DIARRHEA 12/21/2012 CARLOS APPLIANCE COUNSELOR, HOSEA R 787.91 DIARRHEA 12/21/2012 CARLOS APPLIANCE COUNSELOR, HOSEA R 787.91 DIARRHEA 12/21/2012 CARLOS APPLIANCE COUNSELOR, HOSEA R 787.91 DIARRHEA 12/21/2012 LUCIANO CONRAD MD 787.91 DIARRHEA 12/21/2012 CARLOS APPLIANCE COUNSELOR, HOSEA R 787.91 DIARRHEA 12/21/2012 CARLOS APPLIANCE COUNSELOR, HOSEA R 787.91 DIARRHEA 02/11/2013 LOYD NYE MD 787.01 NAUSEA WITH VOMITING 02/11/2013 LOYD NYE MD 787.01 NAUSEA WITH VOMITING 02/11/2013 LOYD NYE MD 787.01 NAUSEA WITH VOMITING 02/11/2013 LUCIANO CONRAD MD 787.01 NAUSEA WITH VOMITING 02/11/2013 LUCIANO CONRAD MD 787.01 NAUSEA WITH VOMITING 02/11/2013 LUCIANO CONRAD MD 787.01 NAUSEA WITH VOMITING 02/11/2013 PRAKASH ZHAO APRN S 787.01 NAUSEA WITH VOMITING 02/11/2013 CARLOS APPLIANCE COUNSELOR, HOSEA R 787.01 NAUSEA WITH VOMITING 02/11/2013 CARLOS APPLIANCE COUNSELOR, HOSEA R 787.01 NAUSEA WITH VOMITING 02/11/2013 CARLOS ODELL, HOSEA R 787.01 NAUSEA WITH VOMITING 02/11/2013 YANIV ODELL TATY L 787.01 NAUSEA WITH VOMITING 02/11/2013 CARLOS APPLIANCE COUNSELOR, HOSEA R 787.01 NAUSEA WITH VOMITING 02/11/2013 CARLOS RODRIGUEZN, HOSEA R 787.01 NAUSEA WITH VOMITING 02/11/2013 CARLOS RODRIGUEZN, HOSEA R 787.01 NAUSEA WITH VOMITING 02/11/2013 LIMA DO, SUKHDEEP K 787.01 NAUSEA WITH VOMITING 02/11/2013 LELA MAGDALENO, JUDAH Kuo 787.01 NAUSEA WITH VOMITING 02/11/2013 CARLOS RODRIGUEZN, HOSEA R 787.01 NAUSEA WITH VOMITING 02/11/2013 CARLOS ODELL, HOSEA R 787.01 NAUSEA WITH VOMITING 02/11/2013 CARLOS ODELL, HOSEA R 787.01 NAUSEA WITH VOMITING 02/11/2013 LUCIANO CNORAD MD 787.01 NAUSEA WITH VOMITING 02/11/2013 CARLOS ODELL, HOSEA R 787.01 NAUSEA WITH VOMITING 02/11/2013 CARLOS ODELL, HOSEA R 787.01 NAUSEA WITH VOMITING 03/03/2013 GAGAN MOISE MD Ot 250.00 DIAB JOSE WO COMPL, TYPE II OR UNSPEC TY 03/03/2013 GAGAN MOISE MD Ot 272.4 HYPERLIPIDEMIA NEC/NOS 03/03/2013 GAGAN MOISE MD Ot 305.1 TOBACCO USE DISORDER 03/03/2013 GAGAN MOISE MD Ot 401.9 HYPERTENSION NOS 03/03/2013 GAGAN MOISE MD Ot 411.1 INTERMED CORONARY SYND 03/03/2013 GAGAN MOISE MD Ot 414.01 CORONARY ATHEROSCLEROSIS OF [place] CORON 03/03/2013 GAGAN MOISE MD Ot 424.0 MITRAL VALVE DISORDER 03/03/2013 GAGAN MOISE MD Ot 496 CHR AIRWAY OBSTRUCT NEC 03/03/2013 GAGAN MOISE MD Ot V12.54 PERSONAL HX OF TIA, CEREBRAL INFARCTION 03/03/2013 GAGAN MOISE MD Ot V58.67 LONG-TERM (CURRENT) USE OF INSULIN 03/03/2013 GAGAN MOISE MD, Ot V58.69 OTH MED,LT,CURRENT USE 03/18/2013 LOYD NYE MD 414.00 CORONARY ARTERY DISEASE 03/18/2013 LOYD NYE MD 799.2 anxiety 03/18/2013 PARRIS GARCIA, LOYD Enriquez 414.00 CORONARY ARTERY DISEASE 03/18/2013 LOYD NYE MD 799.2 anxiety 03/18/2013 LUCIANO CONRAD MD 414.00 CORONARY ARTERY DISEASE 03/18/2013 LUCIANO CONRAD MD 799.2 anxiety 03/18/2013 ANAMARIA GARCIA, LUCIANO 414.00 CORONARY ARTERY DISEASE 03/18/2013 LUCIANO CONRAD MD 799.2 anxiety 03/18/2013 LUCIANO CONRAD MD 414.00 CORONARY ARTERY DISEASE 03/18/2013 LUCIANO CONRAD MD 799.2 anxiety 03/18/2013 PAVEL ODELL, PRAKASH S 414.00 CORONARY ARTERY DISEASE 03/18/2013 PAVEL ODELL, PRAKASH S 799.2 anxiety 03/18/2013 CARLOS APPLIANCE COUNSELOR, HOSEA R 414.00 CORONARY ARTERY DISEASE 03/18/2013 CARLOS APPLIANCE COUNSELOR, HOSEA R 799.2 anxiety 03/18/2013 CARLOS APPLIANCE COUNSELOR, HOSEA R 414.00 CORONARY ARTERY DISEASE 03/18/2013 CARLOS APPLIANCE COUNSELOR, HOSEA R 799.2 anxiety 03/18/2013 CARLOS APPLIANCE COUNSELOR, HOSEA R 414.00 CORONARY ARTERY DISEASE 03/18/2013 CARLOS APPLIANCE COUNSELOR, HOSEA R 799.2 anxiety 03/18/2013 YANIV APPLIANCE COUNSELOR, TATY L 414.00 CORONARY ARTERY DISEASE 03/18/2013 MADL APPLIANCE COUNSELOR, TATY L 799.2 anxiety 03/18/2013 CARLOS APPLIANCE COUNSELOR, HOSEA R 414.00 CORONARY ARTERY DISEASE 03/18/2013 CARLOS APPLIANCE COUNSELOR, HOSEA R 799.2 anxiety 03/18/2013 CARLOS APPLIANCE COUNSELOR, HOSEA R 414.00 CORONARY ARTERY DISEASE 03/18/2013 CARLOS APPLIANCE COUNSELOR, HOSEA R 799.2 anxiety 03/18/2013 CARLOS APPLIANCE COUNSELOR, HOSEA R 414.00 CORONARY ARTERY DISEASE 03/18/2013 CARLOS APPLIANCE COUNSELOR, HOSEA R 799.2 anxiety 03/18/2013 LIMA DOSUKHDEEP K 414.00 CORONARY ARTERY DISEASE 03/18/2013 LIMA DO, SUKHDEEP K 799.2 anxiety 03/18/2013 JUDAH OWEN 414.00 CORONARY ARTERY DISEASE 03/18/2013 JUDAH OWEN 799.2 anxiety 03/18/2013 CARLOS APPLIANCE COUNSELOR, HOSEA R 414.00 CORONARY ARTERY DISEASE 03/18/2013 CARLOS APPLIANCE COUNSELOR, HOSEA R 799.2 anxiety 03/18/2013 CARLOS APPLIANCE COUNSELOR, HOSEA R 414.00 CORONARY ARTERY DISEASE 03/18/2013 CARLOS APPLIANCE COUNSELOR, HOSEA R 799.2 anxiety 03/18/2013 CARLOS APPLIANCE COUNSELOR, HOSEA R 414.00 CORONARY ARTERY DISEASE 03/18/2013 CARLOS APPLIANCE COUNSELOR, HOSEA R 799.2 anxiety 03/18/2013 LUCIANO CONRAD MD 414.00 CORONARY ARTERY DISEASE 03/18/2013 LUCIANO CONRAD MD 799.2 anxiety 03/18/2013 CARLOS APPLIANCE COUNSELOR, HOSEA R 414.00 CORONARY ARTERY DISEASE 03/18/2013 CARLOS APPLIANCE COUNSELOR, HOSEA R 799.2 anxiety 03/18/2013 CARLOS APPLIANCE COUNSELOR, HOSEA R 414.00 CORONARY ARTERY DISEASE 03/18/2013 CARLOS APPLIANCE COUNSELOR, HOSEA R 799.2 anxiety 04/01/2013 LOYD NYE MD 272.4 HYPERLIPIDEMIA 04/01/2013 LOYD NYE MD 300.00 ANXIETY UNSPEC 04/01/2013 LOYD NYE MD 401.9 HYPERTENSION, UNSPECIFIED ESSENTIAL 04/01/2013 LOYD NYE MD 729.5 PAIN IN LIMB 04/01/2013 LUCIANO CONRAD MD 272.4 HYPERLIPIDEMIA 04/01/2013 LUCIANO CONRAD MD 300.00 ANXIETY UNSPEC 04/01/2013 LUCIANO CONRAD MD 401.9 HYPERTENSION, UNSPECIFIED ESSENTIAL 04/01/2013 LUCIANO CONRAD MD 729.5 PAIN IN LIMB 04/01/2013 LUCIANO CONRAD MD 272.4 HYPERLIPIDEMIA 04/01/2013 LUCIANO CONRAD MD 300.00 ANXIETY UNSPEC 04/01/2013 LUCIANO CONRAD MD 401.9 HYPERTENSION, UNSPECIFIED ESSENTIAL 04/01/2013 LUCIANO CONRAD MD 729.5 PAIN IN LIMB 04/01/2013 LUCIANO CONRAD MD 272.4 HYPERLIPIDEMIA 04/01/2013 LUCIANO CONRAD MD 300.00 ANXIETY UNSPEC 04/01/2013 LUCIANO CONRAD MD 401.9 HYPERTENSION, UNSPECIFIED ESSENTIAL 04/01/2013 LUCIANO CONRAD MD 729.5 PAIN IN LIMB 04/01/2013 PAVEL APPLIANCE COUNSELOR, PRAKASH S 272.4 HYPERLIPIDEMIA 04/01/2013 PAVEL APPLIANCE COUNSELOR, PRAKASH S 300.00 ANXIETY UNSPEC 04/01/2013 PAVEL APPLIANCE COUNSELOR, PRAKASH S 401.9 HYPERTENSION, UNSPECIFIED ESSENTIAL 04/01/2013 PAVEL APPLIANCE COUNSELOR, PRAKASH S 729.5 PAIN IN LIMB 04/01/2013 CARLOS APPLIANCE COUNSELOR, HOSEA R 272.4 HYPERLIPIDEMIA 04/01/2013 CARLOS APPLIANCE COUNSELOR, HOSEA R 300.00 ANXIETY UNSPEC 04/01/2013 CARLOS APPLIANCE COUNSELOR, HOSEA R 401.9 HYPERTENSION, UNSPECIFIED ESSENTIAL 04/01/2013 CARLOS APPLIANCE COUNSELOR, HOSEA R 729.5 PAIN IN LIMB 04/01/2013 CARLOS APPLIANCE COUNSELOR, HOSEA R 272.4 HYPERLIPIDEMIA 04/01/2013 CARLOS APPLIANCE COUNSELOR, HOSEA R 300.00 ANXIETY UNSPEC 04/01/2013 CARLOS APPLIANCE COUNSELOR, HOSEA R 401.9 HYPERTENSION, UNSPECIFIED ESSENTIAL 04/01/2013 CARLOS APPLIANCE COUNSELOR, HOSEA R 729.5 PAIN IN LIMB 04/01/2013 CARLOS APPLIANCE COUNSELOR, HOSEA R 272.4 HYPERLIPIDEMIA 04/01/2013 CARLOS APPLIANCE COUNSELOR, HOSEA R 300.00 ANXIETY UNSPEC 04/01/2013 CARLOS APPLIANCE COUNSELOR, HOSEA R 401.9 HYPERTENSION, UNSPECIFIED ESSENTIAL 04/01/2013 CARLOS APPLIANCE COUNSELOR, HOSEA R 729.5 PAIN IN LIMB 04/01/2013 MADL APPLIANCE COUNSELOR, TATY L 272.4 HYPERLIPIDEMIA 04/01/2013 MADL APPLIANCE COUNSELOR, TATY L 300.00 ANXIETY UNSPEC 04/01/2013 MADL APPLIANCE COUNSELOR, TATY L 401.9 HYPERTENSION, UNSPECIFIED ESSENTIAL 04/01/2013 MADL APPLIANCE COUNSELOR, TATY L 729.5 PAIN IN LIMB 04/01/2013 CARLOS APPLIANCE COUNSELOR, HOSEA R 272.4 HYPERLIPIDEMIA 04/01/2013 CARLOS APPLIANCE COUNSELOR, HOSEA R 300.00 ANXIETY UNSPEC 04/01/2013 CARLOS APPLIANCE COUNSELOR, HOSEA R 401.9 HYPERTENSION, UNSPECIFIED ESSENTIAL 04/01/2013 CARLOS APPLIANCE COUNSELOR, HOSEA R 729.5 PAIN IN LIMB 04/01/2013 CARLOS APPLIANCE COUNSELOR, HOSEA R 272.4 HYPERLIPIDEMIA 04/01/2013 CARLOS APPLIANCE COUNSELOR, HOSEA R 300.00 ANXIETY UNSPEC 04/01/2013 CARLOS APPLIANCE COUNSELOR, HOSEA R 401.9 HYPERTENSION, UNSPECIFIED ESSENTIAL 04/01/2013 CARLOS APPLIANCE COUNSELOR, HOSEA R 729.5 PAIN IN LIMB 04/01/2013 CARLOS APPLIANCE COUNSELOR, HOSEA R 272.4 HYPERLIPIDEMIA 04/01/2013 CARLOS APPLIANCE COUNSELOR, HSOEA R 300.00 ANXIETY UNSPEC 04/01/2013 CARLOS APPLIANCE COUNSELOR, HOSEA R 401.9 HYPERTENSION, UNSPECIFIED ESSENTIAL 04/01/2013 CARLOS APPLIANCE COUNSELOR, HOSEA R 729.5 PAIN IN LIMB 04/01/2013 LIMA DO, SUKHDEEP K 272.4 HYPERLIPIDEMIA 04/01/2013 LIMA DO, SUKHDEEP K 300.00 ANXIETY UNSPEC 04/01/2013 LIMA DO, SUKHDEEP K 401.9 HYPERTENSION, UNSPECIFIED ESSENTIAL 04/01/2013 LIMA DO, SUKHDEEP K 729.5 PAIN IN LIMB 04/01/2013 LELA LCMF, JUDAH W 272.4 HYPERLIPIDEMIA 04/01/2013 LELA LCMF, JUDAH W 300.00 ANXIETY UNSPEC 04/01/2013 LELA LCMF, JUDAH W 401.9 HYPERTENSION, UNSPECIFIED ESSENTIAL 04/01/2013 LELA LCMF, JUDAH W 729.5 PAIN IN LIMB 04/01/2013 CARLOS APPLIANCE COUNSELOR, HOSEA R 272.4 HYPERLIPIDEMIA 04/01/2013 CARLOS APPLIANCE COUNSELOR, HOSEA R 300.00 ANXIETY UNSPEC 04/01/2013 CARLOS APPLIANCE COUNSELOR, HOSEA R 401.9 HYPERTENSION, UNSPECIFIED ESSENTIAL 04/01/2013 CARLOS APPLIANCE COUNSELOR, HOSEA R 729.5 PAIN IN LIMB 04/01/2013 CARLOS APPLIANCE COUNSELOR, HOSEA R 272.4 HYPERLIPIDEMIA 04/01/2013 CARLOS APPLIANCE COUNSELOR, HOSEA R 300.00 ANXIETY UNSPEC 04/01/2013 CARLOS APPLIANCE COUNSELOR, HOSEA R 401.9 HYPERTENSION, UNSPECIFIED ESSENTIAL 04/01/2013 CARLOS APPLIANCE COUNSELOR, HOSEA R 729.5 PAIN IN LIMB 04/01/2013 CARLOS APPLIANCE COUNSELOR, HOSEA R 272.4 HYPERLIPIDEMIA 04/01/2013 CARLOS APPLIANCE COUNSELOR, HOSEA R 300.00 ANXIETY UNSPEC 04/01/2013 CARLOS APPLIANCE COUNSELOR, OHSEA R 401.9 HYPERTENSION, UNSPECIFIED ESSENTIAL 04/01/2013 CARLOS APPLIANCE COUNSELOR, HOSEA R 729.5 PAIN IN LIMB 04/01/2013 LUCIANO CONRAD MD 272.4 HYPERLIPIDEMIA 04/01/2013 LUCIANO CONRAD MD 300.00 ANXIETY UNSPEC 04/01/2013 LUCIANO CONRAD MD 401.9 HYPERTENSION, UNSPECIFIED ESSENTIAL 04/01/2013 LUCIANO CONRAD MD 729.5 PAIN IN LIMB 04/01/2013 CARLOS APPLIANCE COUNSELOR, HOSEA R 272.4 HYPERLIPIDEMIA 04/01/2013 CARLOS APPLIANCE COUNSELOR, HOSEA R 300.00 ANXIETY UNSPEC 04/01/2013 CARLOS APPLIANCE COUNSELOR, HOSEA R 401.9 HYPERTENSION, UNSPECIFIED ESSENTIAL 04/01/2013 CARLOS APPLIANCE COUNSELOR, HOSEA R 729.5 PAIN IN LIMB 04/01/2013 CARLOS APPLIANCE COUNSELOR, HOSEA R 272.4 HYPERLIPIDEMIA 04/01/2013 CARLOS APPLIANCE COUNSELOR, HOSEA R 300.00 ANXIETY UNSPEC 04/01/2013 CARLOS APPLIANCE COUNSELOR, HOSEA R 401.9 HYPERTENSION, UNSPECIFIED ESSENTIAL 04/01/2013 CARLOS APPLIANCE COUNSELOR, HOSEA R 729.5 PAIN IN LIMB 04/26/2013 NAT GARCIA, CHIARA Gordillo Ot 486 PNEUMONIA, ORGANISM NOS 04/26/2013 NAT GARCIA, CHIARA Gordillo Ot 780.60 FEVER, UNSPECIFIED 04/29/2013 LUCIANO CONRAD MD 486 PNEUMONIA ORGANISM UNSPECIFIED 04/29/2013 LUCIANO CONRAD MD 486 PNEUMONIA ORGANISM UNSPECIFIED 04/29/2013 PAVEL APPLIANCE COUNSELOR, PRAKASH S 486 PNEUMONIA ORGANISM UNSPECIFIED 04/29/2013 CARLOS APPLIANCE COUNSELOR, HOSEA R 486 PNEUMONIA ORGANISM UNSPECIFIED 04/29/2013 CARLOS APPLIANCE COUNSELOR, HOSEA R 486 PNEUMONIA ORGANISM UNSPECIFIED 04/29/2013 CARLOS APPLIANCE COUNSELOR, HOSEA R 486 PNEUMONIA ORGANISM UNSPECIFIED 04/29/2013 MADL APPLIANCE COUNSELOR, TATY L 486 PNEUMONIA ORGANISM UNSPECIFIED 04/29/2013 CARLOS APPLIANCE COUNSELOR, HOSEA R 486 PNEUMONIA ORGANISM UNSPECIFIED 04/29/2013 CARLOS APPLIANCE COUNSELOR, HOSEA R 486 PNEUMONIA ORGANISM UNSPECIFIED 04/29/2013 CARLOS APPLIANCE COUNSELOR, HOSEA R 486 PNEUMONIA ORGANISM UNSPECIFIED 04/29/2013 SUKHDEEP LIMA DO K 486 PNEUMONIA ORGANISM UNSPECIFIED 04/29/2013 LELA PEDRAZA, JUDAH W 486 PNEUMONIA ORGANISM UNSPECIFIED 04/29/2013 CARLOS APPLIANCE COUNSELOR, HOSEA R 486 PNEUMONIA ORGANISM UNSPECIFIED 04/29/2013 CARLOS APPLIANCE COUNSELOR, HOSEA R 486 PNEUMONIA ORGANISM UNSPECIFIED 04/29/2013 CARLOS APPLIANCE COUNSELOR, HOSEA R 486 PNEUMONIA ORGANISM UNSPECIFIED 04/29/2013 LUCIANO CONRAD MD 486 PNEUMONIA ORGANISM UNSPECIFIED 04/29/2013 CARLOS APPLIANCE COUNSELOR, HOSEA R 486 PNEUMONIA ORGANISM UNSPECIFIED 04/29/2013 CARLOS APPLIANCE COUNSELOR, HOSEA R 486 PNEUMONIA ORGANISM UNSPECIFIED 05/06/2013 LUCIANO CONRAD MD 112.0 CANDIDIASIS OF MOUTH 05/06/2013 LUCIANO CONRAD MD 780.60 FEVER UNSPECIFIED 05/06/2013 PAVEL APPLIANCE COUNSELOR, PRAKASH S 112.0 CANDIDIASIS OF MOUTH 05/06/2013 PAVEL ODELL, PRAKASH S 780.60 FEVER UNSPECIFIED 05/06/2013 CARLOS APPLIANCE COUNSELOR, HOSEA R 112.0 CANDIDIASIS OF MOUTH 05/06/2013 CARLOS APPLIANCE COUNSELOR, HOSEA R 780.60 FEVER UNSPECIFIED 05/06/2013 CARLOS APPLIANCE COUNSELOR, HOSEA R 112.0 CANDIDIASIS OF MOUTH 05/06/2013 CARLOS APPLIANCE COUNSELOR, HOSEA R 780.60 FEVER UNSPECIFIED 05/06/2013 CARLOS APPLIANCE COUNSELOR, HOSEA R 112.0 CANDIDIASIS OF MOUTH 05/06/2013 CARLOS APPLIANCE COUNSELOR, HOSEA R 780.60 FEVER UNSPECIFIED 05/06/2013 YANIV APPLIANCE COUNSELOR, TATY L 112.0 CANDIDIASIS OF MOUTH 05/06/2013 MADL APPLIANCE COUNSELOR, TATY L 780.60 FEVER UNSPECIFIED 05/06/2013 CARLOS APPLIANCE COUNSELOR, HOSEA R 112.0 CANDIDIASIS OF MOUTH 05/06/2013 CARLOS APPLIANCE COUNSELOR, HOSEA R 780.60 FEVER UNSPECIFIED 05/06/2013 CARLOS APPLIANCE COUNSELOR, HOSEA R 112.0 CANDIDIASIS OF MOUTH 05/06/2013 CARLOS APPLIANCE COUNSELOR, HOSEA R 780.60 FEVER UNSPECIFIED 05/06/2013 CARLOS APPLIANCE COUNSELOR, HOSEA R 112.0 CANDIDIASIS OF MOUTH 05/06/2013 CARLOS APPLIANCE COUNSELOR, HOSEA R 780.60 FEVER UNSPECIFIED 05/06/2013 LIMA DO, SUKHDEEP K 112.0 CANDIDIASIS OF MOUTH 05/06/2013 LIMA DO, SUKHDEEP K 780.60 FEVER UNSPECIFIED 05/06/2013 LELA MAGDALENOMF, JUDAH W 112.0 CANDIDIASIS OF MOUTH 05/06/2013 LELA MAGDALENOMF, JUDAH W 780.60 FEVER UNSPECIFIED 05/06/2013 CARLOS APPLIANCE COUNSELOR, HOSEA R 112.0 CANDIDIASIS OF MOUTH 05/06/2013 CARLOS APPLIANCE COUNSELOR, HOSEA R 780.60 FEVER UNSPECIFIED 05/06/2013 CARLOS APPLIANCE COUNSELOR, HOSEA R 112.0 CANDIDIASIS OF MOUTH 05/06/2013 CARLOS APPLIANCE COUNSELOR, HOSEA R 780.60 FEVER UNSPECIFIED 05/06/2013 CARLOS APPLIANCE COUNSELOR, HOSEA R 112.0 CANDIDIASIS OF MOUTH 05/06/2013 CARLOS APPLIANCE COUNSELOR, HOSEA R 780.60 FEVER UNSPECIFIED 05/06/2013 LUCIANO CONRAD MD 112.0 CANDIDIASIS OF MOUTH 05/06/2013 LUCIANO CONRAD MD 780.60 FEVER UNSPECIFIED 05/06/2013 CARLOS APPLIANCE COUNSELOR, HOSEA R 112.0 CANDIDIASIS OF MOUTH 05/06/2013 CARLOS APPLIANCE COUNSELOR, HOSEA R 780.60 FEVER UNSPECIFIED 05/06/2013 CARLOS APPLIANCE COUNSELOR, HOSEA R 112.0 CANDIDIASIS OF MOUTH 05/06/2013 CARLOS APPLIANCE COUNSELOR, HOSEA R 780.60 FEVER UNSPECIFIED 05/16/2013 PRAKASH ZHAO APRN 379.91 PAIN IN OR AROUND EYE 05/16/2013 CARLOS APPLIANCE COUNSELOR, HOSEA R 379.91 PAIN IN OR AROUND EYE 05/16/2013 CARLOS APPLIANCE COUNSELOR, HOSEA R 379.91 PAIN IN OR AROUND EYE 05/16/2013 CARLOS APPLIANCE COUNSELOR, HOSEA R 379.91 PAIN IN OR AROUND EYE 05/16/2013 TATY PURVIS APRN 379.91 PAIN IN OR AROUND EYE 05/16/2013 CARLOS APPLIANCE COUNSELOR, HOSEA R 379.91 PAIN IN OR AROUND EYE 05/16/2013 CARLOS APPLIANCE COUNSELOR, HOSEA R 379.91 PAIN IN OR AROUND EYE 05/16/2013 CARLOS APPLIANCE COUNSELOR, HOSEA R 379.91 PAIN IN OR AROUND EYE 05/16/2013 SUKHDEEP LIMA DO K 379.91 PAIN IN OR AROUND EYE 05/16/2013 JUDAH OWEN 379.91 PAIN IN OR AROUND EYE 05/16/2013 CARLOS APPLIANCE COUNSELOR, HOSEA R 379.91 PAIN IN OR AROUND EYE 05/16/2013 CARLOS APPLIANCE COUNSELOR, HOSEA R 379.91 PAIN IN OR AROUND EYE 05/16/2013 CARLOS APPLIANCE COUNSELOR, HOSEA R 379.91 PAIN IN OR AROUND EYE 05/16/2013 LUCIANO CONRAD MD 379.91 PAIN IN OR AROUND EYE 05/16/2013 CARLOS APPLIANCE COUNSELOR, HOSEA R 379.91 PAIN IN OR AROUND EYE 05/16/2013 CARLOS APPLIANCE COUNSELOR, HOSEA R 379.91 PAIN IN OR AROUND EYE 06/30/2013 CARLOS APPLIANCE COUNSELOR, HOSEA R 625.8 OTHER SPECIFIED SYMPTOMS ASSOCIATED WITH FEMALE GENITAL ORGANS 06/30/2013 CARLOS APPLIANCE COUNSELOR, HOSEA R 786.2 COUGH 06/30/2013 CARLOS APPLIANCE COUNSELOR, HOSEA R 625.8 OTHER SPECIFIED SYMPTOMS ASSOCIATED WITH FEMALE GENITAL ORGANS 06/30/2013 CARLOS APPLIANCE COUNSELOR, HOSEA R 786.2 COUGH 06/30/2013 CARLOS APPLIANCE COUNSELOR, HOSEA R 625.8 OTHER SPECIFIED SYMPTOMS ASSOCIATED WITH FEMALE GENITAL ORGANS 06/30/2013 CARLOS APPLIANCE COUNSELOR, HOSEA R 786.2 COUGH 06/30/2013 MADL APPLIANCE COUNSELOR, TATY L 625.8 OTHER SPECIFIED SYMPTOMS ASSOCIATED WITH FEMALE GENITAL ORGANS 06/30/2013 MADL APPLIANCE COUNSELOR, TATY L 786.2 COUGH 06/30/2013 CARLOS APPLIANCE COUNSELOR, HOSEA R 625.8 OTHER SPECIFIED SYMPTOMS ASSOCIATED WITH FEMALE GENITAL ORGANS 06/30/2013 CARLOS APPLIANCE COUNSELOR, HOSEA R 786.2 COUGH 06/30/2013 CARLOS APPLIANCE COUNSELOR, HOSEA R 625.8 OTHER SPECIFIED SYMPTOMS ASSOCIATED WITH FEMALE GENITAL ORGANS 06/30/2013 CARLOS APPLIANCE COUNSELOR, HOSEA R 786.2 COUGH 06/30/2013 CARLOS APPLIANCE COUNSELOR, HOSEA R 625.8 OTHER SPECIFIED SYMPTOMS ASSOCIATED WITH FEMALE GENITAL ORGANS 06/30/2013 CARLOS APPLIANCE COUNSELOR, HOSEA R 786.2 COUGH 06/30/2013 LIMA DO, SUKHDEEP K 625.8 OTHER SPECIFIED SYMPTOMS ASSOCIATED WITH FEMALE GENITAL ORGANS 06/30/2013 LIMA DO, SUKHDEEP K 786.2 COUGH 06/30/2013 LELA MAGDALENOMF, JUDAH W 625.8 OTHER SPECIFIED SYMPTOMS ASSOCIATED WITH FEMALE GENITAL ORGANS 06/30/2013 LELA LCMF, JUDAH W 786.2 COUGH 06/30/2013 CARLOS APPLIANCE COUNSELOR, HOSEA R 625.8 OTHER SPECIFIED SYMPTOMS ASSOCIATED WITH FEMALE GENITAL ORGANS 06/30/2013 CARLOS APPLIANCE COUNSELOR, HOSEA R 786.2 COUGH 06/30/2013 CARLOS APPLIANCE COUNSELOR, HOSEA R 625.8 OTHER SPECIFIED SYMPTOMS ASSOCIATED WITH FEMALE GENITAL ORGANS 06/30/2013 CARLOS APPLIANCE COUNSELOR, HOSEA R 786.2 COUGH 06/30/2013 CARLOS APPLIANCE COUNSELOR, HOSEA R 625.8 OTHER SPECIFIED SYMPTOMS ASSOCIATED WITH FEMALE GENITAL ORGANS 06/30/2013 CARLOS APPLIANCE COUNSELOR, HOSEA R 786.2 COUGH 06/30/2013 LUCIANO CONRAD MD 625.8 OTHER SPECIFIED SYMPTOMS ASSOCIATED WITH FEMALE GENITAL ORGANS 06/30/2013 LUCIANO CONRAD MD 786.2 COUGH 06/30/2013 CARLOS APPLIANCE COUNSELOR, HOSEA R 625.8 OTHER SPECIFIED SYMPTOMS ASSOCIATED WITH FEMALE GENITAL ORGANS 06/30/2013 HOSEA GONZALEZ APRN R 786.2 COUGH 06/30/2013 HOSEA GONZALEZ APRN R 625.8 OTHER SPECIFIED SYMPTOMS ASSOCIATED WITH FEMALE GENITAL ORGANS 06/30/2013 HOSEA GONZALEZ APRN R 786.2 COUGH 07/18/2013 LUCIANO CONRAD MD Ot 250.00 DIAB JOSE WO COMPL, TYPE II OR UNSPEC TY 07/18/2013 LUCIANO CONRAD MD Ot 272.4 HYPERLIPIDEMIA NEC/NOS 07/18/2013 LUCIANO CONRAD MD Ot 305.1 TOBACCO USE DISORDER 07/18/2013 LUCIANO CONRAD MD Ot 401.9 HYPERTENSION NOS 07/18/2013 LUCIANO CONRAD MD Ot 414.01 CORONARY ATHEROSCLEROSIS OF [place] CORON 07/18/2013 LUCIANO CONRAD MD Ot 435.9 TRANS CEREB ISCHEMIA NOS 07/18/2013 LUCIANO CONRAD MD Ot 438.89 OTH LATE EFFECT-CEREBROVASCULAR DISEASE 07/18/2013 LUCIANO CONRAD MD Ot 496 CHR AIRWAY OBSTRUCT NEC 07/18/2013 LUCIANO CONRAD MD Ot 728.87 MUSCLE WEAKNESS (GENERALIZED) 08/31/2013 CELINA GONZALEZ APRNINA R 311 DEPRESSIVE DISORDER NOT ELSEWHERE CLASSIFIED 08/31/2013 HOSEA GONZALEZ APRN R 709.9 UNSPECIFIED DISORDER OF SKIN AND SUBCUTANEOUS TISSUE 08/31/2013 CELINA GONZALEZ APRNINA R 311 DEPRESSIVE DISORDER NOT ELSEWHERE CLASSIFIED 08/31/2013 HOSEA GONZALEZ APRN R 709.9 UNSPECIFIED DISORDER OF SKIN AND SUBCUTANEOUS TISSUE 08/31/2013 TATY PURVIS APRN L 311 DEPRESSIVE DISORDER NOT ELSEWHERE CLASSIFIED 08/31/2013 TATY PURVIS APRN L 709.9 UNSPECIFIED DISORDER OF SKIN AND SUBCUTANEOUS TISSUE 08/31/2013 CARLOS ODELL HOSEA R 311 DEPRESSIVE DISORDER NOT ELSEWHERE CLASSIFIED 08/31/2013 HOSEA GONZALEZ APRN R 709.9 UNSPECIFIED DISORDER OF SKIN AND SUBCUTANEOUS TISSUE 08/31/2013 CELINA GONZALEZ APRNINA R 311 DEPRESSIVE DISORDER NOT ELSEWHERE CLASSIFIED 08/31/2013 HOSEA GONZALEZ APRN R 709.9 UNSPECIFIED DISORDER OF SKIN AND SUBCUTANEOUS TISSUE 08/31/2013 CELINA GONZALEZ APRNINA R 311 DEPRESSIVE DISORDER NOT ELSEWHERE CLASSIFIED 08/31/2013 CARLOS APPLIANCE COUNSELOR, HOSEA R 709.9 UNSPECIFIED DISORDER OF SKIN AND SUBCUTANEOUS TISSUE 08/31/2013 LIMA DO, SUKHDEEP K 311 DEPRESSIVE DISORDER NOT ELSEWHERE CLASSIFIED 08/31/2013 LIMA DO, SUKHDEEP K 709.9 UNSPECIFIED DISORDER OF SKIN AND SUBCUTANEOUS TISSUE 08/31/2013 LELA LCMF, JUDAH W 311 DEPRESSIVE DISORDER NOT ELSEWHERE CLASSIFIED 08/31/2013 LELA LCMF, JUDAH W 709.9 UNSPECIFIED DISORDER OF SKIN AND SUBCUTANEOUS TISSUE 08/31/2013 CARLOS RODRIGUEZN HOSEA R 311 DEPRESSIVE DISORDER NOT ELSEWHERE CLASSIFIED 08/31/2013 CARLOS APPLIANCE COUNSELOR HOSEA R 709.9 UNSPECIFIED DISORDER OF SKIN AND SUBCUTANEOUS TISSUE 08/31/2013 CARLOS RODRIGUEZN HOSEA R 311 DEPRESSIVE DISORDER NOT ELSEWHERE CLASSIFIED 08/31/2013 CARLOS ODELL HOSEA R 709.9 UNSPECIFIED DISORDER OF SKIN AND SUBCUTANEOUS TISSUE 08/31/2013 CARLOS ODELL HOSEA R 311 DEPRESSIVE DISORDER NOT ELSEWHERE CLASSIFIED 08/31/2013 CALROS ODELL HOSEA R 709.9 UNSPECIFIED DISORDER OF SKIN AND SUBCUTANEOUS TISSUE 08/31/2013 LUCIANO CONRAD MD 311 DEPRESSIVE DISORDER NOT ELSEWHERE CLASSIFIED 08/31/2013 LUCIANO CONRAD MD 709.9 UNSPECIFIED DISORDER OF SKIN AND SUBCUTANEOUS TISSUE 08/31/2013 CARLOS ODELL HOSEA R 311 DEPRESSIVE DISORDER NOT ELSEWHERE CLASSIFIED 08/31/2013 CARLOS ODELL HOSEA R 709.9 UNSPECIFIED DISORDER OF SKIN AND SUBCUTANEOUS TISSUE 08/31/2013 CARLOS ODELL HOSEA R 311 DEPRESSIVE DISORDER NOT ELSEWHERE CLASSIFIED 08/31/2013 CARLOS ODELL HOSEA R 709.9 UNSPECIFIED DISORDER OF SKIN AND SUBCUTANEOUS TISSUE 09/13/2013 MARGI GARCIA, JAMES Cotter Ot 729.5 PAIN IN LIMB 09/13/2013 MARGI GARCIA, JAMES T Ot 729.82 CRAMP IN LIMB 10/04/2013 CARLOS ODELL HOSEA R 729.5 PAIN IN LIMB 10/04/2013 TATY PURVIS APRN 729.5 PAIN IN LIMB 10/04/2013 CARLOS ODELL HOSEA R 729.5 PAIN IN LIMB 10/04/2013 CARLOS ODELL HOSEA R 729.5 PAIN IN LIMB 10/04/2013 CARLOS ODELL HOSEA R 729.5 PAIN IN LIMB 10/04/2013 LIMA DO, SUKHDEEP Prasad 729.5 PAIN IN LIMB 10/04/2013 LELA PEDRAZA, JUDAH Kuo 729.5 PAIN IN LIMB 10/04/2013 CARLOS APPLIANCE COUNSELOR, HOSEA R 729.5 PAIN IN LIMB 10/04/2013 CARLOS APPLIANCE COUNSELOR, HOSEA R 729.5 PAIN IN LIMB 10/04/2013 CARLOS APPLIANCE COUNSELOR, HOSEA R 729.5 PAIN IN LIMB 10/04/2013 LUCIANO CONRAD MD 729.5 PAIN IN LIMB 10/04/2013 CARLOS APPLIANCE COUNSELOR, HOSEA R 729.5 PAIN IN LIMB 10/04/2013 CARLOS APPLIANCE COUNSELOR, HOSEA R 729.5 PAIN IN LIMB 10/12/2013 TATY PURVIS APRN 477.9 ALLERGIC RHINITIS CAUSE UNSPECIFIED 10/12/2013 TATY PURVIS APRN L 729.1 MYALGIA AND MYOSITIS UNSPECIFIED 10/12/2013 CARLOS APPLIANCE COUNSELOR, HOSEA R 477.9 ALLERGIC RHINITIS CAUSE UNSPECIFIED 10/12/2013 CARLOS APPLIANCE COUNSELOR, HOSEA R 729.1 MYALGIA AND MYOSITIS UNSPECIFIED 10/12/2013 CARLOS APPLIANCE COUNSELOR, HOSEA R 477.9 ALLERGIC RHINITIS CAUSE UNSPECIFIED 10/12/2013 CARLOS APPLIANCE COUNSELOR, HOSEA R 729.1 MYALGIA AND MYOSITIS UNSPECIFIED 10/12/2013 CARLOS APPLIANCE COUNSELOR, HOSEA R 477.9 ALLERGIC RHINITIS CAUSE UNSPECIFIED 10/12/2013 CARLOS APPLIANCE COUNSELOR, HOSEA R 729.1 MYALGIA AND MYOSITIS UNSPECIFIED 10/12/2013 LIMA DOSUKHDEEP K 477.9 ALLERGIC RHINITIS CAUSE UNSPECIFIED 10/12/2013 LIMA DOSUKHDEEP K 729.1 MYALGIA AND MYOSITIS UNSPECIFIED 10/12/2013 LELA PEDRAZA, JUDAH Kuo 477.9 ALLERGIC RHINITIS CAUSE UNSPECIFIED 10/12/2013 LELA NICHOLASF, JUDAH Kuo 729.1 MYALGIA AND MYOSITIS UNSPECIFIED 10/12/2013 CARLOS APPLIANCE COUNSELOR, HOSEA R 477.9 ALLERGIC RHINITIS CAUSE UNSPECIFIED 10/12/2013 CARLOS APPLIANCE COUNSELOR, HOSEA R 729.1 MYALGIA AND MYOSITIS UNSPECIFIED 10/12/2013 CARLOS APPLIANCE COUNSELOR, HOSEA R 477.9 ALLERGIC RHINITIS CAUSE UNSPECIFIED 10/12/2013 CARLOS APPLIANCE COUNSELOR, HOSEA R 729.1 MYALGIA AND MYOSITIS UNSPECIFIED 10/12/2013 CARLOS APPLIANCE COUNSELOR, HOSEA R 477.9 ALLERGIC RHINITIS CAUSE UNSPECIFIED 10/12/2013 CARLOS APPLIANCE COUNSELOR, HOSEA R 729.1 MYALGIA AND MYOSITIS UNSPECIFIED 10/12/2013 LUCIANO CONRAD MD 477.9 ALLERGIC RHINITIS CAUSE UNSPECIFIED 10/12/2013 LUCIANO CONRAD MD 729.1 MYALGIA AND MYOSITIS UNSPECIFIED 10/12/2013 CARLOS APPLIANCE COUNSELOR, HOSEA R 477.9 ALLERGIC RHINITIS CAUSE UNSPECIFIED 10/12/2013 CARLOS APPLIANCE COUNSELOR, HOSEA R 729.1 MYALGIA AND MYOSITIS UNSPECIFIED 10/12/2013 CARLOS ODELL, HOSEA R 477.9 ALLERGIC RHINITIS CAUSE UNSPECIFIED 10/12/2013 CARLOS ODELL, HOSEA R 729.1 MYALGIA AND MYOSITIS UNSPECIFIED 11/30/2013 CARLOS ODELL HOSEA R 250.03 DIABETES MELLITUS WITHOUT MENTION OF COMPLICATION TYPE I [JUVENILE TYPE] UNCONTROLLED 11/30/2013 CARLOS ODELL, HOSEA R 789.00 ABDOMINAL PAIN UNSPECIFIED SITE 11/30/2013 CARLOS ODELL, HOSEA R 250.03 DIABETES MELLITUS WITHOUT MENTION OF COMPLICATION TYPE I [JUVENILE TYPE] UNCONTROLLED 11/30/2013 CARLOS ODELL HOSEA R 789.00 ABDOMINAL PAIN UNSPECIFIED SITE 11/30/2013 SUKHDEEP LIMA DO K 250.03 DIABETES MELLITUS WITHOUT MENTION OF COMPLICATION TYPE I [JUVENILE TYPE] UNCONTROLLED 11/30/2013 SUKHDEEP LIMA DO 789.00 ABDOMINAL PAIN UNSPECIFIED SITE 11/30/2013 LELA MAGDALENOMF, JUDAH W 250.03 DIABETES MELLITUS WITHOUT MENTION OF COMPLICATION TYPE I [JUVENILE TYPE] UNCONTROLLED 11/30/2013 LELA RASTAMF, JUDAH W 789.00 ABDOMINAL PAIN UNSPECIFIED SITE 11/30/2013 CARLOS ODELL HOSEA R 250.03 DIABETES MELLITUS WITHOUT MENTION OF COMPLICATION TYPE I [JUVENILE TYPE] UNCONTROLLED 11/30/2013 CARLOS ODELL, HOSEA R 789.00 ABDOMINAL PAIN UNSPECIFIED SITE 11/30/2013 CARLOS ODELL HOSEA R 250.03 DIABETES MELLITUS WITHOUT MENTION OF COMPLICATION TYPE I [JUVENILE TYPE] UNCONTROLLED 11/30/2013 CARLOS APPLIANCE COUNSELOR, HOSEA R 789.00 ABDOMINAL PAIN UNSPECIFIED SITE 11/30/2013 CARLOS APPLIANCE COUNSELOR, HOSEA R 250.03 DIABETES MELLITUS WITHOUT MENTION OF COMPLICATION TYPE I [JUVENILE TYPE] UNCONTROLLED 11/30/2013 CARLOS APPLIANCE COUNSELOR, HOSEA R 789.00 ABDOMINAL PAIN UNSPECIFIED SITE 11/30/2013 LUCIANO CONRAD MD 250.03 DIABETES MELLITUS WITHOUT MENTION OF COMPLICATION TYPE I [JUVENILE TYPE] UNCONTROLLED 11/30/2013 LUCIANO CONRAD MD 789.00 ABDOMINAL PAIN UNSPECIFIED SITE 11/30/2013 CARLOS APPLIANCE COUNSELOR, HOSEA R 250.03 DIABETES MELLITUS WITHOUT MENTION OF COMPLICATION TYPE I [JUVENILE TYPE] UNCONTROLLED 11/30/2013 CARLOS APPLIANCE COUNSELOR, HOSEA R 789.00 ABDOMINAL PAIN UNSPECIFIED SITE 11/30/2013 CARLOS APPLIANCE COUNSELOR, HOSEA R 250.03 DIABETES MELLITUS WITHOUT MENTION OF COMPLICATION TYPE I [JUVENILE TYPE] UNCONTROLLED 11/30/2013 CARLOS APPLIANCE COUNSELOR, HOSEA R 789.00 ABDOMINAL PAIN UNSPECIFIED SITE 12/08/2013 CARLOS APPLIANCE COUNSELOR, HOSEA R 577.0 ACUTE PANCREATITIS 12/08/2013 CARLOS APPLIANCE COUNSELOR, HOSEA R 789.07 ABDOMINAL PAIN GENERALIZED 12/08/2013 LIMA DO, SUKHDEEP K 577.0 ACUTE PANCREATITIS 12/08/2013 LIMA DO, SUKHDEEP K 789.07 ABDOMINAL PAIN GENERALIZED 12/08/2013 LELA NICHOLASF, JUDAH W 577.0 ACUTE PANCREATITIS 12/08/2013 LELA NICHOLASF, JUDAH W 789.07 ABDOMINAL PAIN GENERALIZED 12/08/2013 CARLOS APPLIANCE COUNSELOR, HOSEA R 577.0 ACUTE PANCREATITIS 12/08/2013 CARLOS APPLIANCE COUNSELOR, HOSEA R 789.07 ABDOMINAL PAIN GENERALIZED 12/08/2013 CARLOS APPLIANCE COUNSELOR, HOSEA R 577.0 ACUTE PANCREATITIS 12/08/2013 CARLOS APPLIANCE COUNSELOR, HOSEA R 789.07 ABDOMINAL PAIN GENERALIZED 12/08/2013 CARLOS APPLIANCE COUNSELOR, HOSEA R 577.0 ACUTE PANCREATITIS 12/08/2013 CARLOS APPLIANCE COUNSELOR, HOSEA R 789.07 ABDOMINAL PAIN GENERALIZED 12/08/2013 LUCIANO CONRAD MD 577.0 ACUTE PANCREATITIS 12/08/2013 LUCIANO CONRAD MD 789.07 ABDOMINAL PAIN GENERALIZED 12/08/2013 CARLOS APPLIANCE COUNSELOR, HOSEA R 577.0 ACUTE PANCREATITIS 12/08/2013 CARLOS APPLIANCE COUNSELOR, HOSEA R 789.07 ABDOMINAL PAIN GENERALIZED 12/08/2013 CARLOS APPLIANCE COUNSELOR, HOSEA R 577.0 ACUTE PANCREATITIS 12/08/2013 CARLOS APPLIANCE COUNSELOR, HOSEA R 789.07 ABDOMINAL PAIN GENERALIZED 02/14/2014 LIMA DO, SUKHDEEP K 380.4 CERUMEN IMPACTION 02/14/2014 LIMA DO, SUKHDEEP K 465.9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 03/28/2016 CHIARA JOHNS MD, Ot I25.10 ATHSCL HEART DISEASE OF [place] CORONARY 03/28/2016 CHIARA JOHNS MD, Ot S29.9XXA UNSPECIFIED INJURY OF THORAX, INITIAL EN 03/28/2016 CHIARA JOHNS MD, Ot W18.09XA STRIKING AGAINST OTH OBJECT W SUBSEQUENT 03/28/2016 CHIARA JOHNS MD Ot Y92.[address] [facility] [address] IN [facility] NON-INSTITUT ( PRIVATE 03/28/2016 CHIARA JOHNS MD Ot Y93.9 ACTIVITY, UNSPECIFIED 03/28/2016 CHIARA JOHNS MD, Ot Y99.8 OTHER EXTERNAL CAUSE STATUS 03/28/2016 CHIARA JOHNS MD Ot Z79.4 MUSEUM GUIDE (CURRENT) USE OF INSULIN 03/28/2016 CHIARA JOHNS MD Ot Z79.899 OTHER SENIOR LIVING (CURRENT) DRUG THERAPY 03/31/2016 CHIARA JOHNS MD, Ot E11.9 TYPE 2 DIABETES MELLITUS WITHOUT COMPLIC 03/31/2016 CHIARA JOHNS MD Ot F17.210 NICOTINE DEPENDENCE, CIGARETTES, UNCOMPL 03/31/2016 CHIARA JOHNS MD Ot I10 ESSENTIAL (PRIMARY) HYPERTENSION 03/31/2016 CHIARA JOHNS MD, Ot I25.10 ATHSCL HEART DISEASE OF [place] CORONARY 03/31/2016 CHIARA JOHNS MD Ot S29.9XXA UNSPECIFIED INJURY OF THORAX, INITIAL EN 03/31/2016 CHIARA JOHNS MD Ot W18.09XA STRIKING AGAINST OTH OBJECT W SUBSEQUENT 03/31/2016 CHIARA JOHNS MD, Ot Y92.[address] [facility] [address] IN [facility] NON-INSTITUT ( PRIVATE 03/31/2016 CHIARA JOHNS MD, Ot Y93.9 ACTIVITY, UNSPECIFIED 03/31/2016 CHIARA JOHNS MD, Ot Y99.8 OTHER EXTERNAL CAUSE STATUS 03/31/2016 CHIARA JOHNS MD, Ot Z79.4 [facility]IVING (CURRENT) USE OF INSULIN 03/31/2016 CHIARA JOHNS MD, Ot Z79.899 OTHER SENIOR LIVING (CURRENT) DRUG THERAPY 04/16/2016 MADL, [facility]ATY [facility] [employer] Ot I65.23 OCCLUSION AND STENOSIS OF [place] 04/16/2016 MADL, [facility] Ot I70.8 ATHEROSCLEROSIS OF OTHER ARTERIES 04/16/2016 MADL, [facility] Ot I65.23 OCCLUSION AND STENOSIS OF [place]AL [place] 04/16/2016 MADL, [facility] Ot I70.8 ATHEROSCLEROSIS OF OTHER ARTERIES 04/16/2016 MADL, [facility]Y [facility] Ot I65.23 OCCLUSION AND STENOSIS OF [place]AL [place] 04/16/2016 MADL, [facility] Ot I70.8 ATHEROSCLEROSIS OF OTHER ARTERIES 04/30/2016 MADL, [facility]Y [facility] Ot I65.23 OCCLUSION AND STENOSIS OF [place] 04/30/2016 MADL, [facility] Ot I70.8 ATHEROSCLEROSIS OF OTHER ARTERIES 05/24/2016 GHULAM MCKEON APPLIANCE COUNSELOR Ot R05 COUGH 05/24/2016 GHULAM MCKEON APPLIANCE COUNSELOR Ot Z53.21 PROC/TRTMT NOT CRD OUT D/T PT LV BEF SEE 05/27/2016 GHULAM MCKEON APPLIANCE COUNSELOR Ot R05 COUGH 05/27/2016 GHULAM MCKEON APPLIANCE COUNSELOR Ot Z53.21 PROC/TRTMT NOT CRD OUT D/T PT LV BEF SEE 05/31/2016 GAGAN MOISE MD Ot D64.9 ANEMIA, UNSPECIFIED 05/31/2016 GAGAN MOISE MD Ot E11.9 TYPE 2 DIABETES MELLITUS WITHOUT COMPLIC 05/31/2016 GAGAN MOISE MD Ot E78.5 HYPERLIPIDEMIA, UNSPECIFIED 05/31/2016 GAGAN MOISE MD Ot F17.210 NICOTINE DEPENDENCE, CIGARETTES, UNCOMPL 05/31/2016 GAGAN MOISE MD Ot G40.909 EPILEPSY, UNSP, NOT INTRACTABLE, WITHOUT 05/31/2016 GAGAN MOISE MD, Ot I11.0 HYPERTENSIVE HEART DISEASE WITH HEART FA 05/31/2016 GAGAN MOISE MD Ot I21.4 NON-ST ELEVATION (NSTEMI) MYOCARDIAL INF 05/31/2016 GAAGN MOISE MD, Ot I25.10 ATHSCL HEART DISEASE OF [place] CORONARY 05/31/2016 GAGAN MOISE MD Ot I50.31 ACUTE DIASTOLIC (CONGESTIVE) HEART FAILU 05/31/2016 GAGAN MOISE MD, Ot I69.354 HEMIPLGA FOLLOWING CEREBRAL INFRC AFFECT 05/31/2016 GAGAN MOISE MD, Ot Z79.4 SENIOR LIVING (CURRENT) USE OF INSULIN 05/31/2016 GAAGN MOISE MD Ot Z95.5 PRESENCE OF CORONARY ANGIOPLASTY IMPLANT 07/08/2016 MADL, [facility] Ot R07.81 PLEURODYNIA 07/10/2016 MADL, [facility] Ot R07.81 PLEURODYNIA 07/21/2016 MADL, [facility] Ot R07.81 PLEURODYNIA 11/28/2016 GAGAN MOISE MD Ot 250.00 DIAB JOSE WO COMPL, TYPE II OR UNSPEC TY 11/28/2016 GAGAN MOISE MD Ot 272.4 HYPERLIPIDEMIA NEC/NOS 11/28/2016 GAGAN MOISE MD Ot 401.9 HYPERTENSION NOS 11/28/2016 GAGAN MOISE MD Ot 414.00 CORON ATHEROSCLER NOS TYPE VESSEL, NATIV 11/28/2016 GAGAN MOISE MD Ot 414.00 CORON ATHEROSCLER NOS TYPE VESSEL, NATIV 11/28/2016 GAGAN MOISE MD Ot 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 W CEREBRAL IN 11/28/2016 GAGAN MOISE MD Ot 496 CHR AIRWAY OBSTRUCT NEC 11/28/2016 GAGAN MOISE MD Ot 786.50 CHEST PAIN NOS 11/28/2016 GAGAN MOISE MD Ot 414.00 CORON ATHEROSCLER NOS TYPE VESSEL, NATIV 11/28/2016 GAGAN MOISE MD Ot 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 W CEREBRAL IN 11/28/2016 GAGAN MOISE MD Ot 496 CHR AIRWAY OBSTRUCT NEC 11/28/2016 GAGAN MOISE MD Ot 786.50 CHEST PAIN NOS 11/28/2016 GAGAN MOISE MD Ot 414.00 CORON ATHEROSCLER NOS TYPE VESSEL, NATIV 11/28/2016 GAGAN MOISE MD Ot 433.10 CAROTID ARTERY OCCLUSION W O CEREBRAL IN 11/28/2016 CHARLIE SUAREZ DO Ot F17.200 NICOTINE DEPENDENCE, UNSPECIFIED, UNCOMP 11/28/2016 CHARLIE SUAREZ DO Ot J44.9 CHRONIC OBSTRUCTIVE PULMONARY DISEASE, U 11/28/2016 CHARLIE SUAREZ DO Ot F17.200 NICOTINE DEPENDENCE, UNSPECIFIED, UNCOMP 11/28/2016 CHARLIE SUAREZ DO, Ot J44.9 CHRONIC OBSTRUCTIVE PULMONARY DISEASE, U 11/28/2016 [facility]ATY [facility] Ot R10.84 GENERALIZED ABDOMINAL PAIN 11/28/2016 TATY [facility] Ot I65.23 OCCLUSION AND STENOSIS OF [place] 11/28/2016 YVANLJOSÉA L [facility] Ot I70.8 ATHEROSCLEROSIS OF OTHER ARTERIES 11/28/2016 TATY [facility]VIS L [facility] Ot R93.8 ABNORMAL FINDINGS ON DIAGNOSTIC IMAGING 11/28/2016 TATY [facility] Ot R07.81 PLEURODYNIA 11/28/2016 GAGAN MOISE MD Ot 250.00 DIAB JOSE WO COMPL, TYPE II OR UNSPEC TY 11/28/2016 GAGAN MOISE MD Ot 272.4 HYPERLIPIDEMIA NEC/NOS 11/28/2016 GAGAN MOISE MD Ot 401.9 HYPERTENSION NOS 11/28/2016 GAGAN MOISE MD Ot 414.00 CORON ATHEROSCLER NOS TYPE VESSEL, NATIV 11/28/2016 GAGAN MOISE MD Ot 414.00 CORON ATHEROSCLER NOS TYPE VESSEL, NATIV 11/28/2016 GAGAN MOISE MD Ot 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 W CEREBRAL IN 11/28/2016 GAGAN MOISE MD Ot 496 CHR AIRWAY OBSTRUCT NEC 11/28/2016 GAGAN MOISE MD Ot 786.50 CHEST PAIN NOS 11/28/2016 GAGAN MOISE MD Ot 414.00 CORON ATHEROSCLER NOS TYPE VESSEL, NATIV 11/28/2016 GAGAN MOISE MD Ot 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 W CEREBRAL IN 11/28/2016 GAGAN MOISE MD Ot 496 CHR AIRWAY OBSTRUCT NEC 11/28/2016 GAGAN MOISE MD Ot 786.50 CHEST PAIN NOS 11/28/2016 GAGAN MOISE MD Ot 414.00 CORON ATHEROSCLER NOS TYPE VESSEL, NATIV 11/28/2016 GAGAN MOISE MD Ot 433.10 CAROTID ARTERY OCCLUSION W O CEREBRAL IN 11/28/2016 CHARLIE SUAREZ DO Ot F17.200 NICOTINE DEPENDENCE, UNSPECIFIED, UNCOMP 11/28/2016 CHARLIE SUAREZ DO, Ot J44.9 CHRONIC OBSTRUCTIVE PULMONARY DISEASE, U 11/28/2016 CHARLIE SUAREZ DO Ot F17.200 NICOTINE DEPENDENCE, UNSPECIFIED, UNCOMP 11/28/2016 CHARLIE SUAREZ DO, Ot J44.9 CHRONIC OBSTRUCTIVE PULMONARY DISEASE, U 11/28/2016 [facility]Y [facility] Ot R10.84 GENERALIZED ABDOMINAL PAIN 11/28/2016 TATY [facility] Ot I65.23 OCCLUSION AND STENOSIS OF [place] 11/28/2016 TATY [facility] Ot I70.8 ATHEROSCLEROSIS OF OTHER ARTERIES 11/28/2016 TATY [facility] Ot R93.8 ABNORMAL FINDINGS ON DIAGNOSTIC IMAGING 11/28/2016 TATY [facility] Ot R07.81 PLEURODYNIA Procedures Code Description [place] [address] INFLUENZA A & B (IN-HOUSE) 06/23/2012 88818 PULMONARY FUNCTION TEST (IN-HOUSE) 09/29/2012 75232 PULMONARY FUNCTION TEST (IN-HOUSE) 10/08/2012 58898 BRONCHODILATION PRE/POST 10/08/2012 52831 RESPIRATORY FLOW VOLUME LOOP 10/08/2012 91601 PULMONARY EDUCATION 10/08/2012 04653 XRAY CHEST 2 VIEW 10/12/2012 94783 A1C (IN-HOUSE) 44569 MICRO ALBUMIN-IN HOUSE 10/12/2012 64700 THERAPUTIC INJ SQ/IM 10/12/2012 J2930 SOLUMEDROL INJ 20901 MICROALBUMIN 88056 ROUTINE VENIPUNCTURE 02/11/2013 54558 A1C (IN-HOUSE) 14893 CBC 02/11/2013 48335 LIPID PANEL 02/11 09840 CMP 02/11/2013 9377614 GFR CALC (RESULT ONLY) 02/11/2013 47248 CULTURE SPUTUM 86270 SANDRITA 04/01/2013 95933 A1C (IN-HOUSE) Cardiolog Gagan Moise 04/07/2013 70160 OXIMETRY 2012 72615 ROUTINE VENIPUNCTURE 05/06/2013 17254 CBC 05/06/2013 8091047 GFR CALC (RESULT ONLY) 05/06/2013 69561 CMP 05/06/2013 66603 XRAY CHEST 2 VIEW 05/09/2013 86071 ROUTINE VENIPUNCTURE 06/30/2013 49956 UA LONG DIP 06/30 86976 CBC 06/30/2013 12403 MYCOPLASMA ANTIBODY 07/01/2013 10711 CULTURE WOUND (AEROBIC) 10/06/2013 04890 ROUTINE VENIPUNCTURE 10/12/2013 13911 BMP 10/12/2013 89555 CPK 10/12/2013 69323 CBC 10/12/2013 84590 A1C (IN-HOUSE) 57199 MICRO ALBUMIN-IN HOUSE 10/18/2013 93621 MICROALBUMIN 26037 ROUTINE VENIPUNCTURE 11/30/2013 88760 UA W/ CULTURE IF INDICATED 11/30/2013 04685 CBC 11/30/2013 4306914 GFR CALC (RESULT ONLY) 11/30/2013 18437 CMP 11/30/2013 28375 LIPASE 2013 92819 MYCOPLASMA ANTIBODY 12/01/2013 63512 ROUTINE VENIPUNCTURE 12/08/2013 04899 UA W/ CULTURE IF INDICATED 12/08/2013 52542 CBC 12/08/2013 52377 LIPASE 2013 07651 CULTURE STOOL 61200 PSYCH DIAGNOSTIC EVALUATION 04/14/2014 76083 CLOSTRIDIUM (C-DIFF) 04/15/2014 8943598 STOOL FOR BACTERIAL PATHOGENS 04/16/2014 09582 XRAY CERVICAL SPINE, 2 OR 3 VIEWS 04/21/2014 50185 XRAY KNEE RIGHT 1 OR 2 VIEWS 04/21/2014 65494 A1C (IN-HOUSE) 27792 OXIMETRY 2014 Results Test Result Range Complete blood count (CBC) with automated white blood cell (WBC) differential - 12/21/15 16:53 Blood leukocytes automated count (number/volume) 6.8 10*3/ uL 4.3-11.0 Blood erythrocytes automated count (number/volume) 4.87 10*6 /uL 4.35-5.85 Venous blood hemoglobin measurement (mass/volume) 14.0 g/dL 11.5-16.0 Blood hematocrit (volume fraction) 39 % 35-52 Automated erythrocyte mean corpuscular volume 79 [foz_us] 80-99 Automated erythrocyte mean corpuscular hemoglobin (mass per erythrocyte) 29 pg 25-34 Automated erythrocyte mean corpuscular hemoglobin concentration measurement ( mass/volume) 36 g/dL 32-36 Automated erythrocyte distribution width ratio 14.9 % 10.0-14.5 Automated blood platelet count (count/volume) 240 10*3/uL 130-400 Automated blood platelet mean volume measurement 10.3 [foz_ us] 7.4-10.4 Automated blood neutrophils/100 leukocytes 57 % 42-75 Automated blood lymphocytes/100 leukocytes 33 % 12-44 Blood monocytes/100 leukocytes 7 % 0-12 Automated blood eosinophils/100 leukocytes 3 % 0-10 Automated blood basophils/100 leukocytes 0 % 0-10 Blood neutrophils automated count (number/volume) 3.8 10*3 1.8-7.8 Blood lymphocytes automated count (number/volume) 2.2 10*3 1.0-4.0 Blood monocytes automated count (number/volume) 0.5 10*3 0.0-1.0 Automated eosinophil count 0.2 10*3/uL 0.0-0.3 Automated blood basophil count (count/volume) 0.0 10*3/uL 0.0-0.1 Comprehensive metabolic panel - 12/21/15 16:53 Serum or plasma sodium measurement (moles/volume) 139 mmol/ L 135-145 Serum or plasma potassium measurement (moles/volume) 3.0 mmol/L 3.6-5.0 Serum or plasma chloride measurement (moles/volume) 99 mmol/ L 98-107 Carbon dioxide 31 mmol/L 21-32 Serum or plasma anion gap determination (moles/volume) 9 mmol/L 5-14 Serum or plasma urea nitrogen measurement (mass/volume) 11 mg/dL 7-18 Serum or plasma creatinine measurement (mass/volume) 1.00 mg /dL 0.60-1.30 Serum or plasma urea nitrogen/creatinine mass ratio 11 NRG Serum or plasma creatinine measurement with calculation of estimated glomerular filtration rate 57 NRG Serum or plasma glucose measurement (mass/volume) 221 mg/dL 70-105 Serum or plasma calcium measurement (mass/volume) 9.2 mg/dL 8.5-10.1 Serum or plasma total bilirubin measurement (mass/volume) 0.4 mg/dL 0.1-1.0 Serum or plasma alkaline phosphatase measurement (enzymatic activity/volume) 85 U/L 40-136 Serum or plasma aspartate aminotransferase measurement (enzymatic activity/ volume) 14 U/L 5-34 Serum or plasma alanine aminotransferase measurement (enzymatic activity/volume ) 12 U/L 0-55 Serum or plasma protein measurement (mass/volume) 6.7 g/dL 6.4-8.2 Serum or plasma albumin measurement (mass/volume) 3.4 g/dL 3.2-4.5 Complete urinalysis with reflex to culture - 12/21/15 17:35 Urine color determination YELLOW NRG Urine clarity determination SLIGHTLY CLOUDY NRG Urine pH measurement by test strip 5 5- 9 Specific gravity of urine by test strip 1.015 1.016-1.022 Urine protein assay by test strip, semi-quantitative 3+ NEGATIVE Urine glucose detection by automated test strip NEGATIVE NEGATIVE Erythrocytes detection in urine sediment by light microscopy 4+ NEGATIVE Urine ketones detection by automated test strip NEGATIVE NEGATIVE Urine nitrite detection by test strip NEGATIVE NEGATIVE Urine total bilirubin detection by test strip NEGATIVE NEGATIVE Urine urobilinogen measurement by automated test strip (mass/volume) NORMAL NORMAL Urine leukocyte esterase detection by dipstick NEGATIVE NEGATIVE Automated urine sediment erythrocyte count by microscopy (number/high power field) [HPF] NRG Automated urine sediment leukocyte count by microscopy (number/high power field ) NONE NRG Bacteria detection in urine sediment by light microscopy FEW NRG Squamous epithelial cells detection in urine sediment by light microscopy TNTC NRG Crystals detection in urine sediment by light microscopy NONE NRG Casts detection in urine sediment by light microscopy NONE NRG Mucus detection in urine sediment by light microscopy NEGATIVE NRG Complete urinalysis with reflex to culture NO NRG Yeast detection in urine sediment by light microscopy FEW NRG Complete blood count (CBC) with automated white blood cell (WBC) differential - 02/19/16 13:30 Blood leukocytes automated count (number/volume) 8.0 10*3/ uL 4.3-11.0 Blood erythrocytes automated count (number/volume) 4.91 10*6 /uL 4.35-5.85 Venous blood hemoglobin measurement (mass/volume) 14.4 g/dL 11.5-16.0 Blood hematocrit (volume fraction) 39 % 35-52 Automated erythrocyte mean corpuscular volume 79 [foz_us] 80-99 Automated erythrocyte mean corpuscular hemoglobin (mass per erythrocyte) 29 pg 25-34 Automated erythrocyte mean corpuscular hemoglobin concentration measurement ( mass/volume) 37 g/dL 32-36 Automated erythrocyte distribution width ratio 15.2 % 10.0-14.5 Automated blood platelet count (count/volume) 260 10*3/uL 130-400 Automated blood platelet mean volume measurement 11.1 [foz_ us] 7.4-10.4 Automated blood neutrophils/100 leukocytes 62 % 42-75 Automated blood lymphocytes/100 leukocytes 31 % 12-44 Blood monocytes/100 leukocytes 6 % 0-12 Automated blood eosinophils/100 leukocytes 2 % 0-10 Automated blood basophils/100 leukocytes 0 % 0-10 Blood neutrophils automated count (number/volume) 4.9 10*3 1.8-7.8 Blood lymphocytes automated count (number/volume) 2.5 10*3 1.0-4.0 Blood monocytes automated count (number/volume) 0.5 10*3 0.0-1.0 Automated eosinophil count 0.1 10*3/uL 0.0-0.3 Automated blood basophil count (count/volume) 0.0 10*3/uL 0.0-0.1 Comprehensive metabolic panel - 02/19/16 13:30 Serum or plasma sodium measurement (moles/volume) 137 mmol/ L 135-145 Serum or plasma potassium measurement (moles/volume) 2.5 mmol/L 3.6-5.0 Serum or plasma chloride measurement (moles/volume) 95 mmol/ L 98-107 Carbon dioxide 29 mmol/L 21-32 Serum or plasma anion gap determination (moles/volume) 13 mmol/L 5-14 Serum or plasma urea nitrogen measurement (mass/volume) 9 mg /dL 7-18 Serum or plasma creatinine measurement (mass/volume) 0.92 mg /dL 0.60-1.30 Serum or plasma urea nitrogen/creatinine mass ratio 10 NRG Serum or plasma creatinine measurement with calculation of estimated glomerular filtration rate > NRG Serum or plasma glucose measurement (mass/volume) 381 mg/dL 70-105 Serum or plasma calcium measurement (mass/volume) 9.1 mg/dL 8.5-10.1 Serum or plasma total bilirubin measurement (mass/volume) 0.4 mg/dL 0.1-1.0 Serum or plasma alkaline phosphatase measurement (enzymatic activity/volume) 92 U/L 40-136 Serum or plasma aspartate aminotransferase measurement (enzymatic activity/ volume) 9 U/L 5-34 Serum or plasma alanine aminotransferase measurement (enzymatic activity/volume ) 11 U/L 0-55 Serum or plasma protein measurement (mass/volume) 6.6 g/dL 6.4-8.2 Serum or plasma albumin measurement (mass/volume) 3.4 g/dL 3.2-4.5 Lipase - 02/19/16 13:30 Lipase 41 U/L 8-78 Magnesium - 02/19/16 13:30 Magnesium 1.4 mg/dL 1.8-2.4 Complete blood count (CBC) with automated white blood cell (WBC) differential - 03/28/16 10:30 Blood leukocytes automated count (number/volume) 7.9 10*3/ uL 4.3-11.0 Blood erythrocytes automated count (number/volume) 4.74 10*6 /uL 4.35-5.85 Venous blood hemoglobin measurement (mass/volume) 14.0 g/dL 11.5-16.0 Blood hematocrit (volume fraction) 40 % 35-52 Automated erythrocyte mean corpuscular volume 84 [foz_us] 80-99 Automated erythrocyte mean corpuscular hemoglobin (mass per erythrocyte) 30 pg 25-34 Automated erythrocyte mean corpuscular hemoglobin concentration measurement ( mass/volume) 35 g/dL 32-36 Automated erythrocyte distribution width ratio 14.7 % 10.0-14.5 Automated blood platelet count (count/volume) 195 10*3/uL 130-400 Automated blood platelet mean volume measurement 10.7 [foz_ us] 7.4-10.4 Automated blood neutrophils/100 leukocytes 56 % 42-75 Automated blood lymphocytes/100 leukocytes 33 % 12-44 Blood monocytes/100 leukocytes 7 % 0-12 Automated blood eosinophils/100 leukocytes 3 % 0-10 Automated blood basophils/100 leukocytes 0 % 0-10 Blood neutrophils automated count (number/volume) 4.4 10*3 1.8-7.8 Blood lymphocytes automated count (number/volume) 2.6 10*3 1.0-4.0 Blood monocytes automated count (number/volume) 0.6 10*3 0.0-1.0 Automated eosinophil count 0.3 10*3/uL 0.0-0.3 Automated blood basophil count (count/volume) 0.0 10*3/uL 0.0-0.1 Comprehensive metabolic panel - 03/28/16 10:30 Serum or plasma sodium measurement (moles/volume) 135 mmol/ L 135-145 Serum or plasma potassium measurement (moles/volume) 4.5 mmol/L 3.6-5.0 Serum or plasma chloride measurement (moles/volume) 102 mmol /L 98-107 Carbon dioxide 24 mmol/L 21-32 Serum or plasma anion gap determination (moles/volume) 9 mmol/L 5-14 Serum or plasma urea nitrogen measurement (mass/volume) 14 mg/dL 7-18 Serum or plasma creatinine measurement (mass/volume) 0.99 mg /dL 0.60-1.30 Serum or plasma urea nitrogen/creatinine mass ratio 14 NRG Serum or plasma creatinine measurement with calculation of estimated glomerular filtration rate 58 NRG Serum or plasma glucose measurement (mass/volume) 211 mg/dL 70-105 Serum or plasma calcium measurement (mass/volume) 8.9 mg/dL 8.5-10.1 Serum or plasma total bilirubin measurement (mass/volume) 0.2 mg/dL 0.1-1.0 Serum or plasma alkaline phosphatase measurement (enzymatic activity/volume) 104 U/L 40-136 Serum or plasma aspartate aminotransferase measurement (enzymatic activity/ volume) 8 U/L 5-34 Serum or plasma alanine aminotransferase measurement (enzymatic activity/volume ) 9 U/L 0-55 Serum or plasma protein measurement (mass/volume) 6.9 g/dL 6.4-8.2 Serum or plasma albumin measurement (mass/volume) 3.6 g/dL 3.2-4.5 Methicillin resistant Staphylococcus aureus (MRSA) screening culture - 18:00 Methicillin resistant Staphylococcus aureus (MRSA) screening culture NEG NRG Complete blood count (CBC) with automated white blood cell (WBC) differential - 05/30/16 18:03 Blood leukocytes automated count (number/volume) 5.3 10*3/ uL 4.3-11.0 Blood erythrocytes automated count (number/volume) 3.62 10*6 /uL 4.35-5.85 Venous blood hemoglobin measurement (mass/volume) 10.2 g/dL 11.5-16.0 Blood hematocrit (volume fraction) 31 % 35-52 Automated erythrocyte mean corpuscular volume 84 [foz_us] 80-99 Automated erythrocyte mean corpuscular hemoglobin (mass per erythrocyte) 28 pg 25-34 Automated erythrocyte mean corpuscular hemoglobin concentration measurement ( mass/volume) 33 g/dL 32-36 Automated erythrocyte distribution width ratio 15.1 % 10.0-14.5 Automated blood platelet count (count/volume) 177 10*3/uL 130-400 Automated blood platelet mean volume measurement 11.2 [foz_ us] 7.4-10.4 Automated blood neutrophils/100 leukocytes 62 % 42-75 Automated blood lymphocytes/100 leukocytes 29 % 12-44 Blood monocytes/100 leukocytes 8 % 0-12 Automated blood eosinophils/100 leukocytes 1 % 0-10 Automated blood basophils/100 leukocytes 0 % 0-10 Blood neutrophils automated count (number/volume) 3.3 10*3 1.8-7.8 Blood lymphocytes automated count (number/volume) 1.5 10*3 1.0-4.0 Blood monocytes automated count (number/volume) 0.4 10*3 0.0-1.0 Automated eosinophil count 0.0 10*3/uL 0.0-0.3 Automated blood basophil count (count/volume) 0.0 10*3/uL 0.0-0.1 Blood lactic acid measurement (moles/volume) - 05/30/16 18:03 Blood lactic acid measurement (moles/volume) 2.0 mmol/L 0.5-2.0 Whole blood basic metabolic panel - 05/30/16 18:03 Serum or plasma sodium measurement (moles/volume) 134 mmol/ L 135-145 Serum or plasma potassium measurement (moles/volume) 3.3 mmol/L 3.6-5.0 Serum or plasma chloride measurement (moles/volume) 95 mmol/ L 98-107 Carbon dioxide 31 mmol/L 21-32 Serum or plasma anion gap determination (moles/volume) 8 mmol/L 5-14 Serum or plasma urea nitrogen measurement (mass/volume) 13 mg/dL 7-18 Serum or plasma creatinine measurement (mass/volume) 0.93 mg /dL 0.60-1.30 Serum or plasma urea nitrogen/creatinine mass ratio 14 NRG Serum or plasma creatinine measurement with calculation of estimated glomerular filtration rate > NRG Serum or plasma glucose measurement (mass/volume) 205 mg/dL 70-105 Serum or plasma calcium measurement (mass/volume) 7.8 mg/dL 8.5-10.1 Serum or plasma troponin i.cardiac measurement (mass/volume) - 05/30/16 18:03 Serum or plasma troponin i.cardiac measurement (mass/volume) 1.06 ng/mL <0.30 Bacterial blood culture - 05/30/16 18:03 Bacterial blood culture NG NRG Bacterial blood culture - 05/30/16 18:19 Bacterial blood culture NG NRG Complete blood count (CBC) with automated white blood cell (WBC) differential - 05/31/16 03:54 Blood leukocytes automated count (number/volume) 5.5 10*3/ uL 4.3-11.0 Blood erythrocytes automated count (number/volume) 3.39 10*6 /uL 4.35-5.85 Venous blood hemoglobin measurement (mass/volume) 9.4 g/dL 11.5-16.0 Blood hematocrit (volume fraction) 29 % 35-52 Automated erythrocyte mean corpuscular volume 85 [foz_us] 80-99 Automated erythrocyte mean corpuscular hemoglobin (mass per erythrocyte) 28 pg 25-34 Automated erythrocyte mean corpuscular hemoglobin concentration measurement ( mass/volume) 33 g/dL 32-36 Automated erythrocyte distribution width ratio 15.2 % 10.0-14.5 Automated blood platelet count (count/volume) 204 10*3/uL 130-400 Automated blood platelet mean volume measurement 11.8 [foz_ us] 7.4-10.4 Automated blood neutrophils/100 leukocytes 48 % 42-75 Automated blood lymphocytes/100 leukocytes 42 % 12-44 Blood monocytes/100 leukocytes 8 % 0-12 Automated blood eosinophils/100 leukocytes 2 % 0-10 Automated blood basophils/100 leukocytes 0 % 0-10 Blood neutrophils automated count (number/volume) 2.7 10*3 1.8-7.8 Blood lymphocytes automated count (number/volume) 2.3 10*3 1.0-4.0 Blood monocytes automated count (number/volume) 0.4 10*3 0.0-1.0 Automated eosinophil count 0.1 10*3/uL 0.0-0.3 Automated blood basophil count (count/volume) 0.0 10*3/uL 0.0-0.1 Comprehensive metabolic panel - 05/31/16 03:54 Serum or plasma sodium measurement (moles/volume) 141 mmol/ L 135-145 Serum or plasma potassium measurement (moles/volume) 3.1 mmol/L 3.6-5.0 Serum or plasma chloride measurement (moles/volume) 100 mmol /L 98-107 Carbon dioxide 30 mmol/L 21-32 Serum or plasma anion gap determination (moles/volume) 11 mmol/L 5-14 Serum or plasma urea nitrogen measurement (mass/volume) 12 mg/dL 7-18 Serum or plasma creatinine measurement (mass/volume) 0.85 mg /dL 0.60-1.30 Serum or plasma urea nitrogen/creatinine mass ratio 14 NRG Serum or plasma creatinine measurement with calculation of estimated glomerular filtration rate > NRG Serum or plasma glucose measurement (mass/volume) 94 mg/dL 70-105 Serum or plasma calcium measurement (mass/volume) 8.3 mg/dL 8.5-10.1 Serum or plasma total bilirubin measurement (mass/volume) 0.4 mg/dL 0.1-1.0 Serum or plasma alkaline phosphatase measurement (enzymatic activity/volume) 60 U/L 40-136 Serum or plasma aspartate aminotransferase measurement (enzymatic activity/ volume) 28 U/L 5-34 Serum or plasma alanine aminotransferase measurement (enzymatic activity/volume ) 11 U/L 0-55 Serum or plasma protein measurement (mass/volume) 5.7 g/dL 6.4-8.2 Serum or plasma albumin measurement (mass/volume) 2.8 g/dL 3.2-4.5 Serum or plasma phosphate measurement (mass/volume) - 05/31/16 03:54 Serum or plasma phosphate measurement (mass/volume) 4.1 mg/ dL 2.3-4.7 Magnesium - 05/31/16 03:54 Magnesium 1.6 mg/dL 1.8-2.4 Serum or plasma troponin i.cardiac measurement (mass/volume) - 05/31/16 03:54 Serum or plasma troponin i.cardiac measurement (mass/volume) 1.07 ng/mL <0.30 Serum or plasma lithium measurement (moles/volume) - 05/31/16 03:54 BNP level 950.7 pg/mL <100.0 Complete blood count (CBC) with automated white blood cell (WBC) differential - 11/27/16 21:50 Blood leukocytes automated count (number/volume) 9.9 10*3/ uL 4.3-11.0 Blood erythrocytes automated count (number/volume) 3.84 10*6 /uL 4.35-5.85 Venous blood hemoglobin measurement (mass/volume) 11.0 g/dL 11.5-16.0 Blood hematocrit (volume fraction) 32 % 35-52 Automated erythrocyte mean corpuscular volume 82 [foz_us] 80-99 Automated erythrocyte mean corpuscular hemoglobin (mass per erythrocyte) 29 pg 25-34 Automated erythrocyte mean corpuscular hemoglobin concentration measurement ( mass/volume) 35 g/dL 32-36 Automated erythrocyte distribution width ratio 13.9 % 10.0-14.5 Automated blood platelet count (count/volume) 287 10*3/uL 130-400 Automated blood platelet mean volume measurement 11.6 [foz_ us] 7.4-10.4 Automated blood neutrophils/100 leukocytes 78 % 42-75 Automated blood lymphocytes/100 leukocytes 13 % 12-44 Blood monocytes/100 leukocytes 8 % 0-12 Automated blood eosinophils/100 leukocytes 1 % 0-10 Automated blood basophils/100 leukocytes 0 % 0-10 Blood neutrophils automated count (number/volume) 7.7 10*3 1.8-7.8 Blood lymphocytes automated count (number/volume) 1.3 10*3 1.0-4.0 Blood monocytes automated count (number/volume) 0.8 10*3 0.0-1.0 Automated eosinophil count 0.1 10*3/uL 0.0-0.3 Automated blood basophil count (count/volume) 0.0 10*3/uL 0.0-0.1 Comprehensive metabolic panel - 11/27/16 21:50 Serum or plasma sodium measurement (moles/volume) 136 mmol/ L 135-145 Serum or plasma potassium measurement (moles/volume) 3.1 mmol/L 3.6-5.0 Serum or plasma chloride measurement (moles/volume) 101 mmol /L 98-107 Carbon dioxide 24 mmol/L 21-32 Serum or plasma anion gap determination (moles/volume) 11 mmol/L 5-14 Serum or plasma urea nitrogen measurement (mass/volume) 12 mg/dL 7-18 Serum or plasma creatinine measurement (mass/volume) 1.04 mg /dL 0.60-1.30 Serum or plasma urea nitrogen/creatinine mass ratio 12 NRG Serum or plasma creatinine measurement with calculation of estimated glomerular filtration rate 54 NRG Serum or plasma glucose measurement (mass/volume) 251 mg/dL 70-105 Serum or plasma calcium measurement (mass/volume) 8.9 mg/dL 8.5-10.1 Serum or plasma total bilirubin measurement (mass/volume) 0.3 mg/dL 0.1-1.0 Serum or plasma alkaline phosphatase measurement (enzymatic activity/volume) 73 U/L 40-136 Serum or plasma aspartate aminotransferase measurement (enzymatic activity/ volume) 10 U/L 5-34 Serum or plasma alanine aminotransferase measurement (enzymatic activity/volume ) 11 U/L 0-55 Serum or plasma protein measurement (mass/volume) 6.8 g/dL 6.4-8.2 Serum or plasma albumin measurement (mass/volume) 3.1 g/dL 3.2-4.5 Magnesium - 11/27/16 21:50 Magnesium 1.4 mg/dL 1.8-2.4 Serum or plasma troponin i.cardiac measurement (mass/volume) - 11/27/16 21:50 Serum or plasma troponin i.cardiac measurement (mass/volume) < ng/mL <0.30 Complete urinalysis with reflex to culture - 11/27/16 22:36 Urine color determination YELLOW NRG Urine clarity determination SLIGHTLY CLOUDY NRG Urine pH measurement by test strip 5 5- 9 Specific gravity of urine by test strip 1.015 1.016-1.022 Urine protein assay by test strip, semi-quantitative 4+ NEGATIVE Urine glucose detection by automated test strip NEGATIVE NEGATIVE Erythrocytes detection in urine sediment by light microscopy 4+ NEGATIVE Urine ketones detection by automated test strip NEGATIVE NEGATIVE Urine nitrite detection by test strip POSITIVE NEGATIVE Urine total bilirubin detection by test strip NEGATIVE NEGATIVE Urine urobilinogen measurement by automated test strip (mass/volume) 1 mg/dL NORMAL Urine leukocyte esterase detection by dipstick 3+ NEGATIVE Automated urine sediment erythrocyte count by microscopy (number/high power field) [HPF] NRG Automated urine sediment leukocyte count by microscopy (number/high power field ) TNTC NRG Bacteria detection in urine sediment by light microscopy LARGE NRG Squamous epithelial cells detection in urine sediment by light microscopy 5-10 NRG Crystals detection in urine sediment by light microscopy NONE NRG Casts detection in urine sediment by light microscopy NONE NRG Mucus detection in urine sediment by light microscopy NEGATIVE NRG Complete urinalysis with reflex to culture YES NRG Bacterial urine culture - 11/27/16 22:36 Bacterial urine culture [id number] NRG COLONY COUNT >100,000/ML NRG FTX;REPORTABLE SENSITIVITY REPORTED 11/29/16 9:00 NRG Bacterial susceptibility panel - 11/27/16 22:36 Gentamicin susceptibility test by minimum inhibitory concentration <= NRG Trimethoprim/sulfamethoxazole susceptibility test by minimum inhibitoryconcentration <= NRG Ampicillin susceptibility test by minimum inhibitory concentration 4 NRG Tobramycin susceptibility test by minimum inhibitory concentration <= NRG Cefazolin susceptibility test by minimum inhibitory concentration <= NRG Ceftriaxone susceptibility test by minimum inhibitory concentration <= NRG Ampicillin/sulbactam susceptibility test by minimum inhibitory concentration <= NRG Piperacillin/tazobactam susceptibility test by minimum inhibitory concentration <= NRG Ciprofloxacin susceptibility test by minimum inhibitory concentration <= NRG Meropenem susceptibility test by minimum inhibitory concentration <= NRG Nitrofurantoin susceptibility test by minimum inhibitory concentration <= NRG Aztreonam susceptibility test by minimum inhibitory concentration <= NRG Extended spectrum beta lactamase (ESBL) producing bacteria susceptibility test by minimum inhibitory concentration - NRG Encounters ACCT No. Visit Date/Time Discharge Status Pt. Type Provider Facility Loc./Unit Complaint [id number] 08/15/2014 13:31:00 08/15/2014 23: 59:59 CLS Outpatient HOSEA GONZALEZ APRN [id number] 06/13/2014 14:58:00 06/13/2014 23: 59:59 CLS Outpatient HOSEA GONZALEZ APRN [id number] 05/29/2014 10:08:00 05/29/2014 23: 59:59 CLS Outpatient LUCIANO CONRAD MD [id number] 05/24/2014 10:39:00 05/24/2014 23: 59:59 CLS Outpatient HOSEA GONZALEZ APRN [id number] 05/09/2014 10:27:00 05/09/2014 23: 59:59 CLS Outpatient CARLOS RODRIGUEZN HOSEA R [id number] 04/21/2014 11:18:00 04/21/2014 23: 59:59 CLS Outpatient CARLOS RODRIGUEZN HOSEA R [id number] 04/14/2014 12:45:00 04/14/2014 23: 59:59 CLS Outpatient LELA LCMJUDAH Peterson [id number] 02/14/2014 10:34:00 02/14/2014 23: 59:59 CLS Outpatient SUKHDEEP LIMA DO [id number] 12/08/2013 10:04:00 12/08/2013 23: 59:59 CLS Outpatient CARLOS RODRIGUEZN HOSEA R [id number] 11/30/2013 10:53:00 11/30/2013 23: 59:59 CLS Outpatient CARLOS RODRIGUEZN HOSEA R [id number] 10/18/2013 15:40:00 10/18/2013 23: 59:59 CLS Outpatient CARLOS RODRIGUEZN HOSEA R [id number] 10/12/2013 09:00:00 10/12/2013 23: 59:59 CLS Outpatient TATY PURVIS APRN [id number] 10/04/2013 10:57:00 10/04/2013 23: 59:59 CLS Outpatient CARLOS RODRIGUEZN HOSEA R [id number] 08/31/2013 10:26:00 08/31/2013 23: 59:59 CLS Outpatient CARLOS RODRIGUEZN HOSEA R [id number] 06/30/2013 13:55:00 06/30/2013 23: 59:59 CLS Outpatient CARLOS RODRIGUEZN, HOSEA R [id number] 05/16/2013 09:59:00 05/16/2013 23: 59:59 CLS Outpatient PAVEL APPLIANCE COUNSELOR PRAKASH Collins [id number] 05/06/2013 13:08:00 05/06/2013 23: 59:59 CLS Outpatient LUCIANO CONRAD MD [id number] 04/29/2013 13:07:00 04/29/2013 23: 59:59 CLS Outpatient LUCIANO CONRAD MD [id number] 04/07/2013 08:43:00 04/07/2013 23: 59:59 CLS Outpatient LUCIANO CONRAD MD [id number] 04/01/2013 14:41:00 04/01/2013 23: 59:59 CLS Outpatient LOYD NYE MD [id number] 03/18/2013 09:51:00 03/18/2013 23: 59:59 CLS Outpatient LOYD NYE MD [id number] 02/11/2013 13:03:00 02/11/2013 23: 59:59 CLS Outpatient LOYD NYE MD [id number] 06/23/2012 09:03:00 06/23/2012 23: 59:59 CLS Outpatient [id number] 10/12/2012 15:45:00 Document Registration [id number] 10/08/2012 12:45:00 Document Registration [id number] 09/28/2012 09:28:00 Document Registration
== END 2016-11-28 00:35 | disposition home or self-care (01) ==
LOC: EDUNIT# 21:41 → ER 21:42
DX: N39.0 Urinary tract infection, site not specified (principal); F41.9 Anxiety disorder, unspecified; F32.9 Major depressive disorder, single episode, unspecified; E11.9 Type 2 diabetes mellitus without complications; M19.90 Unspecified osteoarthritis, unspecified site; G40.909 Epilepsy, unspecified, not intractable, without status epilepticus; I25.10 Atherosclerotic heart disease of native coronary artery without angina pectoris; J44.9 Chronic obstructive pulmonary disease, unspecified; F17.210 Nicotine dependence, cigarettes, uncomplicated; Z90.711 Acquired absence of uterus with remaining cervical stump; Z86.73 Personal history of transient ischemic attack (TIA), and cerebral infarction without residual deficits; Z79.82 Long term (current) use of aspirin; Z79.4 Long term (current) use of insulin
CPT/HCPCS: 36415; 71010; 80053; 81000; 83735; 84484; 85025; 87088; 87186; 93005; 99283

== ENCOUNTER 2017-07-09 10:46 | Emergency (ER) | payer MEDICAID ==
[~2017-07-09] VITALS: Ht 154.9 cm; Wt 78.0 kg
[~2017-07-09 10:46] MED LIST changes: -NITR0.4T3 SL; +NITR0.4T42 SL; +SULF1TAB35 PO
--- NOTE | 2017-07-09 11:59 | ED General ---
General Chief Complaint: Dizziness/Syncope Stated Complaint: DIZZY Nursing Triage Note: Pt reports onset of dizziness for last week. Pt states she feels unsteady when walking. Son w/ pt reports that pt had 4-5 falls 3-4 days ago. Son states pt had similar symptoms before she had her stroke 2 years ago. Pt and son report risidual weakness on L side after previous stroke and report weakness and feeling of numbness is getting worse this week. Nursing Sepsis Screen: No Definite Risk Source of Information: Patient, Family Exam Limitations: No Limitations History of Present Illness Date Seen by Provider: Jul 09, 2017 Time Seen by Provider: 11:55 Initial Comments The patient is a 56-year-old white female who is no stranger to this emergency room. SHe was apparently sent out here after a phone call to counts include [facility] beds at the [facility]. She has a past history of strokes and vascular disease. She continues to smoke. The issues began earlier in the week. The son gives most of the history. He states that 3 or 4 days ago she fell multiple times. Her balance has seemed poor. These symptoms were evident 2 or 3 years ago when she had the stroke. She apparently recovered well from the stroke which showed a had largely left-sided symptoms. She has a walker but does not use it even after the balance and falling issues. In addition she has a rather abundantly evident tremor disorder involving upper extremities and jaw. When asked about Parkinson's disease, the son states that multiple family members have had Parkinson's disease and he has been trying to get a provider to refer her for a neurology appointment. Timing/Duration: 3-4 Days Allergies and Home Medications Allergies Coded Allergies: clarithromycin (Verified Allergy, Unknown, 05/24/16) iodine (Verified Allergy, Unknown, 05/24/16) metformin (Verified Adverse Reaction, Unknown, 05/24/16) STATES CAUSES DIARRHEA Uncoded Allergies: TAPE (Allergy, Unknown, 04/26/14) Home Medications Albuterol Sulfate 1 Puff Puff, 2 PUFF IH Q4H PRN for COUGH/WHEEZING, (Reported) PALS PROGRAM Aspirin 325 Mg Tablet, 325 MG PO DAILY, #30 Ref 4 Prescribed by: GAGAN NELSON on 05/31/16 1121 Buspirone HCl 15 Mg Tablet, 15 MG PO BID, #45 (Reported) Citalopram Hydrobromide 20 Mg Tablet, 20 MG PO DAILY, #30 (Reported) Clonidine HCl 0.1 Mg Tablet, 0.1 MG PO BID, #56 (Reported) Dicyclomine HCl 10 Mg Capsule, 10 MG PO HS, #60 (Reported) Gabapentin 300 Mg Capsule, 600 MG PO TID, (Reported) 04-21-14 #90 REPOSITORY Insulin Glargine,Hum.rec.anlog 300 Unit/1 Ml Insuln.pen, 16 UNITS SC HS, #5 Prescribed by: MARY SHARP on 05/30/16 1748 Levofloxacin 750 Mg Tablet, 750 MG PO DAILY, #7 Ref 0 Prescribed by: GAGAN NELSON on 05/31/16 1121 Lisinopril 5 Mg Tablet, 5 MG PO DAILY, (Reported) 05-09-14 #90 REPOSITORY Magnesium Oxide 400 Mg Tablet, 400 MG PO DAILY, #20 Prescribed by: GHULAM MCKEON on 02/19/16 1618 Potassium Chloride 20 Meq Tablet.er, 20 MEQ PO DAILY, #10 Prescribed by: GHULAM MCKEON on 02/19/16 1618 Sulfamethoxazole/Trimethoprim 1 Each Tablet, 1 EACH PO BID for 7 Days, #14 Ref 0 Prescribed by: YIMI CORTES on 11/28/16 0019 Constitutional: see HPI EENTM: other (dizziness) Respiratory: no symptoms reported Cardiovascular: no symptoms reported Gastrointestinal: no symptoms reported Genitourinary: other (history of frequent urinary tract infections) Psychiatric/Neurological: Tremors, Weakness Hematologic/Lymphatic: No Symptoms Reported Immunological/Allergic: no symptoms reported Past Ivmmkma-Nodeto-Dxedym Hx Patient Social History Type Used: Cigarettes Recent Foreign Travel: No Contact w/Someone Who Travel: No Recent Infectious Disease Expo: No Recent Hopitalizations: No Immunizations Up To Date Tetanus Booster (TDap): Less than 5yrs PED Vaccines UTD: No Date of Pneumonia Vaccine: Jan 24, 2008 Date of Influenza Vaccine: Mar 02, 2013 Seasonal Allergies Seasonal Allergies: No Surgeries History of Surgeries: Yes (CARDIAC CATH X 3, heel spurs, carpal tunnel) Surgeries: Section, Hysterectomy, Orthopedic Respiratory History of Respiratory Disorde: Yes Respiratory Disorders: COPD Currently Using CPAP: Yes (doesnt use it) Currently Using BIPAP: No Cardiovascular History of Cardiac Disorders: Yes (MITRAL VALVE PROLAPSE, CARDIAC CATH X 3) Cardiac Disorders: Coronary Artery Disease Neurological History of Neurological Disord: Yes Neurological Disorders: Seizure Disorder, Stroke, TIA Reproductive System Hx Reproductive Disorders: No 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 History: Hysterectomy Genitourinary History of Genitourinary Disor: No Gastrointestinal History of Gastrointestinal Di: No Musculoskeletal History of Musculoskeletal Dis: Yes Musculoskeletal Disorders: Arthritis Endocrine History of Endocrine Disorders: Yes Endocrine Disorders: Diabetes, Insulin dep HEENT Loss of Vision: Bilateral Hearing Impairment: Denies Cancer History of Cancer: No Psychosocial History of Psychiatric Problem: Yes Behavioral Health Disorders: Anxiety, Depression Integumentary History of Skin or Integumenta: No Blood Transfusions History of Blood Disorders: No Adverse Reaction to a Blood Tr: No Family Medical History Significant Family History: No Pertinent Family Hx Family Medial History: Cancer 03 MOTHER (BREAST REMOVED) Congestive heart failure 03 MOTHER Family history: Cardiovascular disease 03 MOTHER Family history: Diabetes mellitus 03 MOTHER Family history: Hypertension 03 MOTHER 09 BROTHER History of - disorder 09 SISTER (HEART MURMUR) Hypercholesterolemia 03 MOTHER Stroke 03 FATHER, Onset:76 (ANEURYSM) Physical Exam Vital Signs Vital Signs - First Documented 07/09/17 11:31 Temp 96.7 Pulse 58 Resp 18 B/P (MAP) 114/60 (78) Pulse Ox 98 O2 Delivery Room Air Capillary Refill : Less Than 3 Seconds General Appearance: Other (evidence tremorous movement of lower jaw and both arms.) Eyes: Bilateral Eye Normal Inspection HEENT: Normal ENT Inspection Neck: Normal Inspection Respiratory: Chest Non Tender, Lungs Clear, Normal Breath Sounds, No Accessory Muscle Use, No Respiratory Distress Cardiovascular: Regular Rate, Rhythm, No Edema, No Gallop, No JVD, No Murmur, Normal Peripheral Pulses Back: Normal Inspection Neurologic/Psychiatric: Alert, Oriented x3, No Motor/Sensory Deficits, Normal 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 Grit Removal Operator is 2+ and equal bilaterally. Rapid alternating finger to thumb movements are equal bilaterally. There appears to be a degree of cogwheeling at the biceps tendon bilaterally. She is able to straight leg lift without difficulty. Progress/Results/Core Measures Suspected Sepsis Recent Fever Within 48 Hours: No Infection Criteria Present: None New/Unexplained Altered Menta: No Sepsis Screen: No Definite Risk Sepsis Diagnosis: SIRS Temperature:96.7 Pulse: 58 Respiratory Rate: 18 Laboratory Tests 07/09/17 12:45: White Blood Count 8.0 Blood Pressure 114 /60 Mean: 78 Laboratory Tests 07/09/17 12:45: Creatinine 0.99, Platelet Count 239, Total Bilirubin 0.3 Results/Orders Lab Results Laboratory Tests Test 07/09/17 12:41 07/09/17 12:45 Range/Units Urine Color YELLOW Urine Clarity CLEAR Urine pH 6 5-9 Urine Specific [place] 1.015 L 1.016-1.022 Urine Protein 3+ H NEGATIVE Urine Glucose (UA) NEGATIVE NEGATIVE Urine Ketones NEGATIVE NEGATIVE Urine Nitrite NEGATIVE NEGATIVE Urine Bilirubin NEGATIVE NEGATIVE Urine Urobilinogen NORMAL NORMAL MG/DL Urine Leukocyte Esterase 3+ H NEGATIVE Urine RBC (Auto) 3+ H NEGATIVE Urine RBC 10-25 H /HPF Urine WBC >100 H /HPF Urine Squamous Epithelial Cells 2-5 /HPF Urine Crystals NONE /LPF Urine Bacteria MODERATE H /HPF Urine Casts NONE /LPF Urine Mucus NEGATIVE /LPF Urine Culture Indicated YES White Blood Count 8.0 4.3-11.0 10^3/uL Red Blood Count 4.48 4.35-5.85 10^6/uL Hemoglobin 12.4 11.5-16.0 G/DL Hematocrit 36 35-52 % Mean Corpuscular Volume 80 80-99 FL Mean Corpuscular Hemoglobin 28 25-34 PG Mean Corpuscular Hemoglobin Concent 35 32-36 G/DL Red Cell Distribution Width 15.9 H 10.0-14.5 % Platelet Count 239 130-400 10^3/uL Mean Platelet Volume 11.1 H 7.4-10.4 FL Neutrophils (%) (Auto) 59 42-75 % Lymphocytes (%) (Auto) 32 12-44 % Monocytes (%) (Auto) 7 0-12 % Eosinophils (%) (Auto) 2 0-10 % Basophils (%) (Auto) 0 0-10 % Neutrophils # (Auto) 4.7 1.8-7.8 X 10^3 Lymphocytes # (Auto) 2.5 1.0-4.0 X 10^3 Monocytes # (Auto) 0.6 0.0-1.0 X 10^3 Eosinophils # (Auto) 0.2 0.0-0.3 10^3/uL Basophils # (Auto) 0.0 0.0-0.1 10^3/uL Sodium Level 143 135-145 MMOL/L Potassium Level 2.7 L 3.6-5.0 MMOL/L Chloride Level 101 98-107 MMOL/L Carbon Dioxide Level 30 21-32 MMOL/L Anion Gap 12 5-14 MMOL/L Blood Urea Nitrogen 9 7-18 MG/DL Creatinine 0.99 0.60-1.30 MG/DL Estimat Glomerular Filtration Rate 58 BUN/Creatinine Ratio 9 Glucose Level 222 H 70-105 MG/DL Calcium Level 8.9 8.5-10.1 MG/DL Total Bilirubin 0.3 0.1-1.0 MG/DL Aspartate Amino Transf (AST/SGOT) 10 5-34 U/L Alanine Aminotransferase (ALT/SGPT) 7 0-55 U/L Alkaline Phosphatase 100 40-136 U/L Total Protein 6.9 6.4-8.2 GM/DL Albumin 3.3 3.2-4.5 GM/DL My Orders Orders - ALBINO GALLARDO MD Cbc With Automated Diff (07/09/17 11:43) Comprehensive Metabolic Panel (07/09/17 11:43) Ua Culture If Indicated (07/09/17 11:43) Chest 1 View, Ap/Pa Only (07/09/17 11:43) Urine Culture (07/09/17 12:41) Ceftriaxone Injection (Rocephin Injectio (07/09/17 13:15) Vital Signs/I&O Vital Sign - Last 12Hours 07/09/17 11:31 Temp 96.7 Pulse 58 Resp 18 B/P (MAP) 114/60 (78) Pulse Ox 98 O2 Delivery Room Air Capillary Refill : Less Than 3 Seconds Blood Pressure Mean: 78 Departure Communication (Admissions) Progress Notes The UA has returned returned with abundant white blood cells. Stool specimen has been plated for sensitivity. She is receiving a gram of Rocephin and discharged. Impression Impression: Primary Impression: urinary tract infection Disposition: HOME, SELF-CARE Condition: Stable/Unchanged Departure-Patient Inst. Decision time for Depature: 13:24 Referrals: SUKHDEEP LIMA DO (PCP) Primary Care Physician TATY PURVIS (Family) Primary Care Physician Add. Discharge Instructions: All discharge instructions reviewed with patient and/or family. Voiced understanding. Begin your pills for urinary tract infection at about noon tomorrow. Take all of them. Use your walker. Given the tremor YOU exhibited, a neurology consult would appear in order. Scripts Cefdinir (Cefdinir) 300 Mg Capsule 300 MG PO TTWICE A DAY, #14 CAP Prov: ALBINO GALLARDO MD 07/09/17 ALBINO GALLARDO MD Jul 09, 2017 11:59
--- NOTE | 2017-07-09 12:07 | Diagnostic Imaging Report ---
INDICATION: Cardiomegaly. TIME OF EXAM: 11:56 AM Correlation is made with prior study from 11/27/2016. FINDINGS: The heart is enlarged but stable. Lungs are clear. No infiltrate or failure is detected. There is no effusion or pneumothorax. IMPRESSION: No acute cardiopulmonary process is detected. Dictated by: Dictated on workstation # [id number]
[2017-07-09 12:48] LABS: BILIRUBIN,URINE NEGATIVE (NEGATIVE); CLARITY,URINE CLEAR; COLOR,URINE YELLOW; GLUCOSE, URINE (UA) NEGATIVE (NEGATIVE); KETONES,URINE NEGATIVE (NEGATIVE); LEUKOCYTE ESTERASE ,URINE 3+ (NEGATIVE); NITRITE,URINE NEGATIVE (NEGATIVE); PH,URINE 6 (5-9); PROTEIN,URINE 3+ (NEGATIVE); UROBILINOGEN,URINE NORMAL (NORMAL)
[2017-07-09 12:53] LABS: BASOPHILS % (AUTO) 0 % (0-10); EOSINOPHILS # (AUTO) 0.2 10^3/uL (0.0-0.3); EOSINOPHILS % (AUTO) 2 % (0-10); HEMATOCRIT 36 % (35-52); HEMOGLOBIN 12.4 G/DL (11.5-16.0); LYMPHOCYTES # (AUTO) 2.5 X 10^3 (1.0-4.0); LYMPHOCYTES % (AUTO) 32 % (12-44); MEAN CORPUSCULAR HEMOGLOBIN 28 PG (25-34); MEAN CORPUSCULAR HGB CONC 35 G/DL (32-36); MEAN CORPUSCULAR VOLUME 80 FL (80-99); MEAN PLATELET VOLUME 11.1 FL (7.4-10.4); MONOCYTES # (AUTO) 0.6 X 10^3 (0.0-1.0); MONOCYTES % (AUTO) 7 % (0-12); NEUTROPHILS # (AUTO) 4.7 X 10^3 (1.8-7.8); NEUTROPHILS % (AUTO) 59 % (42-75); PLATELET COUNT 239 10^3/uL (130-400); RED BLOOD COUNT 4.48 10^6/uL (4.35-5.85); RED CELL DISTRIBUTION WIDTH 15.9 % (10.0-14.5)
[2017-07-09 12:59] LABS: BACTERIA,URINE MODERATE /HPF; WBC,URINE >100 /HPF
[2017-07-09 13:13] LABS: ALBUMIN 3.3 GM/DL (3.2-4.5); BILIRUBIN,TOTAL 0.3 MG/DL (0.1-1.0); CALCIUM 8.9 MG/DL (8.5-10.1); CREATININE SERUM 0.99 MG/DL (0.60-1.30); POTASSIUM 2.7 MMOL/L (3.6-5.0); TOTAL PROTEIN 6.9 GM/DL (6.4-8.2)
[2017-07-09] MEDS ORDERED: cefTRIAXone INJECTION 1,000 MG in NS (IVPB) 50 ML IV ONE (13:15)
[2017-07-09] MEDS ORDERED: CEFD300C3 PO (13:28)
[2017-07-09 14:17] VITALS: BP 122/75
--- OUTSIDE RECORDS SUMMARY | 2017-07-10 14:58 | XMS REPORT ---
Author Author TATY PURVIS [facility] Address [address] [place] [address] Care Team Providers Care Technical Operations Vice President Name Role Phone TATY PURVIS Unavailable PROBLEMS Type Condition ICD9-CM Code [id number] Code Onset Dates Condition Status SNOMED Code Problem Hypokalemia E87.6 Active 52103599 Problem Vision changes H53.9 Active 49379916 Problem Daytime hypersomnia G47.19 Active 97292243395299 Problem Constipation by delayed colonic transit K59.01 Active 10717680 Problem manager intermediate current use of insulin Z79.4 Active 774906413 Problem Onychomycosis B35.1 Active 942023343 Problem Anxiety F41.9 Active 74760724 Problem Abnormal carotid ultrasound R93.8 Active 637656171 Problem Tremor R25.1 Active 23421096 Problem Hypomagnesemia E83.42 Active 594250880 Problem Allergy to iodine Z88.8 Active 554294856 Problem Memory loss R41.3 Active 00055636 Problem Atherosclerotic heart disease of [place] coronary artery without angina pectoris I25.10 Active 7966467596539 Problem Chronic obstructive pulmonary disease, unspecified COPD type J44.9 Active 34395108 Problem Tobacco abuse Z72.0 Active 84711038 Problem Hypertension I10 Active 01541997 Problem Mixed hyperlipidemia E78.2 Active 797916345 Problem 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.49 Active 764656379 Problem Type 2 diabetes mellitus with diabetic neuropathy E11.40 Active 48324952 Problem Depression F32.9 Active 99362055 Problem Neuropathy G62.9 Active 079445248 Problem Primary insomnia F51.01 Active 2741671 ALLERGIES No Information SOCIAL HISTORY Never Assessed PLAN OF CARE VITAL SIGNS MEDICATIONS Medication Instructions Dosage Frequency Start Date End Date Duration Status Tramadol HCl 50 mg Orally 2 times a day 1/2 to 1 tablet as needed 12h 14 Jul, 2016 Active RESULTS No Results PROCEDURES No Known procedures IMMUNIZATIONS No Known Immunizations MEDICAL (GENERAL) HISTORY Type Description Date Medical History stroke - 2007 Medical History hypertension Medical History chronic obstructive pulmonary disease (COPD) Medical History hyperlipidemia Medical History type II diabetes - diagnosed in 1991 Medical History coronary artery disease s/p PCI Medical History Has never had a colonosocopy and refuses to have one scheduled or discussed Medical History Echo 05-30-16 PAP 55 mmHg Moderate Aortic Valve Sclerosis Surgical History heart cath x 4, stent placed 02/2013 Surgical History hysterectomy 1985 Surgical History section 1977, 1978, 1984 Surgical History orthopedic surgery - removal of heel spurs off of both feet Surgical History neuroplasty w/ transposition of median nerve at carpal tunnel in both hands Surgical History [facility] Hospitalization History Surgery(s)/Childbirth(s) only Hospitalization History chest pain and pneumonia May 2016
--- OUTSIDE RECORDS SUMMARY | 2017-07-10 14:58 | XMS REPORT ---
Author Author TATY PURVIS [facility] Address [address] [place] [address] Care Team Providers Care Ibm Websphere Commerce Developer Name Role Phone TATY PURVIS Unavailable PROBLEMS Type Condition ICD9-CM Code [id number] Code Onset Dates Condition Status SNOMED Code Problem Depression F32.9 Active 60054104 Problem Hypokalemia E87.6 Active 16010916 Problem Primary insomnia F51.01 Active 1174417 Problem Allergy to iodine Z88.8 Active 752170738 Problem Abnormal carotid ultrasound R93.8 Active 959005877 Problem Hypomagnesemia E83.42 Active 548423407 Problem Vision changes H53.9 Active 42217702 Problem Daytime hypersomnia G47.19 Active 96231863255218 Problem Memory loss R41.3 Active 71375342 Problem Tremor R25.1 Active 59699519 Problem Tobacco abuse Z72.0 Active 58523847 Problem Hypertension I10 Active 32012890 Problem Anxiety F41.9 Active 70086908 Problem terminologist current use of insulin Z79.4 Active 206895627 Problem Type 2 diabetes mellitus with diabetic neuropathy E11.40 Active 88013056 Problem Neuropathy G62.9 Active 546868015 Problem Atherosclerotic heart disease of [place] coronary artery without angina pectoris I25.10 Active 3018144359948 Problem Mixed hyperlipidemia E78.2 Active 225378272 Problem Chronic obstructive pulmonary disease, unspecified COPD type J44.9 Active 55149456 Problem 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.49 Active 884743524 ALLERGIES No Information SOCIAL HISTORY Never Assessed PLAN OF CARE VITAL SIGNS MEDICATIONS Medication Instructions Dosage Frequency Start Date End Date Duration Status Gabapentin 250 MG/5ML Orally Three times a day 12 mL 8h Jun, 30 day(s) Active Gabapentin 300 MG Orally Three times a day 2 capsules 8h Active RESULTS No Results PROCEDURES No Known [...]
--- OUTSIDE RECORDS SUMMARY | 2017-07-10 14:58 | XMS REPORT ---
Author Author TATY PURVIS Organization [facility] Address [address] [place] [address] Care Team Providers Care Dental Hygiene Professor Name Role Phone TATY PURVIS Unavailable PROBLEMS Type Condition ICD9-CM Code [id number] Code Onset Dates Condition Status SNOMED Code Problem Hypokalemia E87.6 Active 94262230 Problem Vision changes H53.9 Active 88507088 Problem Daytime hypersomnia G47.19 Active 20667540989941 Problem Constipation by delayed colonic transit K59.01 Active 93890454 Problem residential current use of insulin Z79.4 Active 602618303 Problem Onychomycosis B35.1 Active 741991691 Problem Anxiety F41.9 Active 74334443 Problem Abnormal carotid ultrasound R93.8 Active 407809708 Problem Tremor R25.1 Active 82227387 Problem Hypomagnesemia E83.42 Active 905067547 Problem Allergy to iodine Z88.8 Active 438452443 Problem Memory loss R41.3 Active 50669291 Problem Atherosclerotic heart disease of [place] coronary artery without angina pectoris I25.10 Active 3016191755111 Problem Chronic obstructive pulmonary disease, unspecified COPD type J44.9 Active 21998052 Problem Tobacco abuse Z72.0 Active 23033258 Problem Hypertension I10 Active 46321140 Problem Mixed hyperlipidemia E78.2 Active 836265794 Problem 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.49 Active 696899224 Problem Type 2 diabetes mellitus with diabetic neuropathy E11.40 Active 86190834 Problem Depression F32.9 Active 81731149 Problem Neuropathy G62.9 Active 490107309 Problem Primary insomnia F51.01 Active 2900485 ALLERGIES Substance Reaction Event Type Date Status Metformin HCl Unknown Drug Allergy September, Active Levemir Unknown Drug Allergy September, Active Iodine Unknown Drug Allergy September, Active Biaxin Unknown Drug Allergy September, Active SOCIAL HISTORY Never Assessed PLAN OF CARE Activity Details Follow Up Consult with Dr. Simon and DM 2 months Reason: VITAL SIGNS Height 64 in 2016-10-02 Weight 170 lbs 2016-10-02 Temperature 99.0 degrees Fahrenheit 2016-10-02 Heart Rate 60 bpm 2016-10-02 Respiratory Rate 20 2016-10-02 BMI 29.18 kg/m2 2016-10-02 Blood pressure systolic 170 mmHg 2016-10-02 Blood pressure diastolic 70 mmHg 2016-10-02 MEDICATIONS Medication Instructions Dosage Frequency Start Date End Date Duration Status BD Pen Needle Rox U/F 32G X 4 MM subcutaneously 2 times a day as directed 12h Active Toujeo SoloStar 300 UNIT/ML Subcutaneous Once a day 20 units 24h Active Lisinopril 5 mg oral daily 2 tablets 24h Active Zofran 8 MG Orally every 8 hours, PRN 1 tablet Jul, Active Amitriptyline HCl 25 MG Orally at hs daily 1 tablet 30 day(s) Active Potassium Chloride 20 MEQ/15ML (10%) Orally Once a day 15 ml 24h Active Oxygen & Tubing 2 liters Active Indomethacin 50 mg Orally Twice a day 1 capsule with food or milk 12h September, September, 15 days Active Ventolin HFA 90 mcg/actuation Inhalation as directed inhale 2 puffs by Inhalation route as needed every 4-6 hours PRN for cough or wheeze Active Aspirin 81 mg chew 1 tablet (81 mg) by oral route once daily Dec, Active RESULTS No Results PROCEDURES No Known [...] 4, stent placed 02/2013 Surgical History hysterectomy 1986 Surgical History section 1977, 1978, 1984 Surgical History orthopedic surgery - removal of heel spurs off of both feet Surgical History neuroplasty w/ transposition of median nerve at carpal tunnel in both hands Surgical History [facility] Hospitalization History Surgery(s)/Childbirth(s) only Hospitalization History chest pain and pneumonia May 2016
--- OUTSIDE RECORDS SUMMARY | 2017-07-10 14:58 | XMS REPORT | Clinical Summary ---
Author Author [facility] Organization [facility] Address Unknown Phone Unavailable Care Team Providers Care Radio Television Announcer Name Role Phone Chloe Stanley MARY KAY PCP Source Comments Some departments are not documenting in the electronic medical record. If you do not see the information that you expected, contact Release of Information in the Health Information Management department at [phone] for further assistance in locating additional records.[facility] Allergies Active Allergy Reactions Severity Noted Date Comments Povidone-Iodine HIVES Medium 08/14/2016 Clarithromycin SEE COMMENTS Low 08/14/2016 Unsure Insulin Detemir SEE COMMENTS Low 08/14/2016 Flu like symptoms Iodine HIVES Medium 08/14/2016 Metformin SEE COMMENTS Low 08/14/2016 Nausea and diarrhea Current Medications Prescription Sig. Disp. Refills Start End Date Status Date insulin aspart 70/30 (+) Inject 20 Units under the Active (NOVOLOG MIX 70/30) 100 skin once. unit/mL (70-30) LISINOPRIL PO Take 5 mg by mouth daily. Active melatonin 3 mg tab Take 3 mg by mouth at Active bedtime daily. Active Problems Not on file Family History Medical History Relation Name Comments Hypertension Mother Relation Name Status Comments Mother Social History Tobacco Use Types Packs/Day Years Used Date Current Every Day Smoker Cigarettes 1 40 Smokeless Tobacco: Never Used Alcohol Use Drinks/Week oz/Week Comments No 0 Standard 0.0 drinks or equivalent Sex Assigned at Date Recorded Not on file Last Filed Vital Signs Not on file Plan of Treatment Health Maintenance Due Date Last Done Comments HEPATITIS C SCREENING 1958 PHYSICAL (COMPREHENSIVE) 1965 EXAM PERTUSSIS VACCINE 1969 TETANUS VACCINE 10/11/1975 CERVICAL CANCER SCREENING 1988 BREAST CANCER SCREENING 1998 COLORECTAL CANCER 2008 SCREENING INFLUENZA VACCINE 12/23/2016 Results Not on filefrom Last 3 Months
--- OUTSIDE RECORDS SUMMARY | 2017-07-10 14:58 | XMS REPORT ---
Author Author TATY PURVIS [facility] Address [address] [place] [address] Care Team Providers Care Cashier Host/Hostess Name Role Phone TATY PURVIS Unavailable PROBLEMS Type Condition ICD9-CM Code [id number] Code Onset Dates Condition Status SNOMED Code Problem Hypokalemia E87.6 Active 45979595 Problem Vision changes H53.9 Active 64526684 Problem Daytime hypersomnia G47.19 Active 53702707929884 Problem Constipation by delayed colonic transit K59.01 Active 05784083 Problem residential current use of insulin Z79.4 Active 090245415 Problem Onychomycosis B35.1 Active 148948697 Problem Anxiety F41.9 Active 57513258 Problem Abnormal carotid ultrasound R93.8 Active 559868311 Problem Tremor R25.1 Active 48695024 Problem Hypomagnesemia E83.42 Active 039857355 Problem Allergy to iodine Z88.8 Active 642715982 Problem Memory loss R41.3 Active 83920166 Problem Atherosclerotic heart disease of [place] coronary artery without angina pectoris I25.10 Active 5423834568291 Problem Chronic obstructive pulmonary disease, unspecified COPD type J44.9 Active 35436206 Problem Tobacco abuse Z72.0 Active 75319890 Problem Hypertension I10 Active 45045134 Problem Mixed hyperlipidemia E78.2 Active 948460775 Problem 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
--- OUTSIDE RECORDS SUMMARY | 2017-07-10 14:59 | XMS REPORT ---
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 Active 743875623 Problem Onychomycosis B35.1 Active 993364377 Problem Anxiety F41.9 Active 82146978 Problem Abnormal carotid ultrasound R93.8 Active 337767836 Problem Tremor R25.1 Active 50153383 Problem Hypomagnesemia E83.42 Active 516544091 Problem Allergy to iodine Z88.8 Active 575535076 Problem Memory loss R41.3 Active 06116802 Problem Atherosclerotic heart disease of [place] coronary artery without angina pectoris I25.10 Active 3529234548321 Problem Chronic obstructive pulmonary disease, unspecified COPD type J44.9 Active 29653245 Problem Tobacco abuse Z72.0 Active 20624838 Problem Hypertension I10 Active 46951272 Problem Mixed hyperlipidemia E78.2 Active 294625113 Problem 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.49 Active 003638882 Problem Type 2 diabetes mellitus with diabetic neuropathy E11.40 Active 50382662 Problem Depression F32.9 Active 75473826 Problem Neuropathy G62.9 Active 659312062 Problem Primary insomnia F51.01 Active 4652521 ALLERGIES No Information SOCIAL HISTORY Never Assessed PLAN OF CARE VITAL SIGNS MEDICATIONS Unknown [...]
--- OUTSIDE RECORDS SUMMARY | 2017-07-10 15:00 | XMS REPORT ---
Author Author TATY PURVIS [facility] Address [address] [place] [address] Care Team Providers Care Program Aide Name Role Phone TATY PURVIS Unavailable PROBLEMS Type Condition ICD9-CM Code ANB58-KQ Code Onset Dates Condition Status SNOMED Code Problem Depression F32.9 Active 03792720 Problem Hypokalemia E87.6 Active 10092091 Problem Primary insomnia F51.01 Active 0811470 Problem Allergy to iodine Z88.8 Active 790071777 Problem Abnormal carotid ultrasound R93.8 Active 664419881 Problem Memory loss R41.3 Active 44024717 Problem Vision changes H53.9 Active 60130232 Problem Daytime hypersomnia G47.19 Active 64499273384172 Problem Hypomagnesemia E83.42 Active 848925169 Problem Tremor R25.1 Active 93404153 Problem Hypertension I10 Active 48656713 Problem Tobacco abuse Z72.0 Active 92628893 Problem Anxiety F41.9 Active 86483452 Problem Neuropathy G62.9 Active 421607574 Problem 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.4 Active 686481365 Problem Mixed hyperlipidemia E78.2 Active 575091369 Problem Atherosclerotic heart disease of [place] coronary artery without angina pectoris I25.10 Active 4142060899821 Problem Type 2 diabetes mellitus with diabetic neuropathy E11.40 Active 33693866 Problem Chronic obstructive pulmonary disease, unspecified COPD type J44.9 Active 12289493 Problem 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.49 Active 170206079 ALLERGIES Substance Reaction Event Type Date Status Metformin HCl Unknown Drug Allergy Apr, Active Levemir Unknown Drug Allergy Apr, Active Iodine Unknown Drug Allergy Apr, Active Biaxin Unknown Drug Allergy Apr, Active SOCIAL HISTORY No smoking Hx information available PLAN OF CARE Activity Details Follow Up 2 month Reason:mood, diabetes VITAL SIGNS Height 64 in 2016-05-13 Weight 168.7 lbs 2016-05-13 Temperature 97.7 degrees Fahrenheit 2016-05-13 Heart Rate 72 bpm 2016-05-13 Respiratory Rate 18 2016-05-13 BMI 28.95 kg/m2 2016-05-13 Blood pressure systolic 142 mmHg 2016-05-13 Blood pressure diastolic 77 mmHg 2016-05-13 MEDICATIONS Medication Instructions Dosage Frequency Start Date End Date Duration Status Rozerem 8 MG Orally Once a day 1 tablet at bedtime as needed 24h 30 days Active Nystatin 949237 UNIT/GM Externally Twice a day 1 application to affected area 12h 20 Apr, 2016 Active Magnesium 400 MG Orally Once a day 1 tablet 24h Active Toujeo SoloStar 300 UNIT/ML Subcutaneous Once a day 18 units 24h Active Lisinopril 5 mg oral daily take 1 tablet by Oral route 1 time per day for blood pressure 24h 90 days Active Symbicort 160-4.5 mcg/actuation Inhalation Twice a day inhale 2 puffs by inhalation route 2 times per day in the morning and evening 12h Active BD Pen Needle Rox U/F 32G X 4 MM subcutaneously 2 times a day as directed 12h Active Gabapentin 600 MG Orally Three times a day 1 tablet 8h 16 Dec, 2015 30 day(s) Active Dicyclomine HCl 10 mg Orally 2 times a day 1 capsules 12h 15 May, 2016 90 days Active Oxygen & Tubing 2 liters Active Celexa 20 mg Orally Once a day 1 tablet 24h Active Eszopiclone 1 MG Orally Once a day 1 tablet immediately before bedtime 24h Active NovoLog 100 UNIT/ML Subcutaneous three times a day 7 units with meals 8h Active BusPIRone HCl 15 MG TAKE ONE-HALF TO ONE TABLET BY MOUTH TWICE DAILY NEEDED 22 Active Ventolin HFA 90 mcg/actuation Inhalation as directed inhale 2 puffs by Inhalation route as needed every 4-6 hours PRN for cough or wheeze Active Klor-Con M20 20 MEQ Orally Once a day 1 tablet 24h Active Rexulti 0.5 MG Orally Once a day 1 tablet 24h 30 day(s) Active Gabapentin 300 MG Orally Three times a day 2 capsules 8h Active CloNIDine HCl ER 0.1 MG Orally twice a day 1 tablet at bedtime 12h Active RESULTS No Results PROCEDURES Procedure Date Ordered Related Diagnosis Body Site Preventive Care Est Pt. Age 40-64 May 13, 2016 IMMUNIZATIONS No Known Immunizations
--- OUTSIDE RECORDS SUMMARY | 2017-07-10 15:00 | XMS REPORT ---
Author Author TATY PURVIS Organization [facility] Address [address] [place] [address] Care Team Providers Care Warp Clamper Name Role Phone TATY PURVIS Unavailable PROBLEMS Type Condition ICD9-CM Code JSU17-CV Code Onset Dates Condition Status SNOMED Code Problem Depression F32.9 Active 20617149 Problem Hypokalemia E87.6 Active 82299642 Problem Primary insomnia F51.01 Active 2347109 Problem Allergy to iodine Z88.8 Active 704536210 Problem Abnormal carotid ultrasound R93.8 Active 048156284 Problem Memory loss R41.3 Active 86038507 Problem Vision changes H53.9 Active 82641180 Problem Daytime hypersomnia G47.19 Active 80519678578549 Problem Hypomagnesemia E83.42 Active 788790259 Problem Tremor R25.1 Active 33966708 Problem Hypertension I10 Active 25625792 Problem Tobacco abuse Z72.0 Active 40596582 Problem Anxiety F41.9 Active 80955573 Problem Neuropathy G62.9 Active 306095737 Problem [facility] current use of insulin Z79.4 Active 093374041 Problem Mixed hyperlipidemia E78.2 Active 862633207 Problem Atherosclerotic heart disease of [place] coronary artery without angina pectoris I25.10 Active 7282736186374 Problem Type 2 diabetes mellitus with diabetic neuropathy E11.40 Active 47399233 Problem Chronic obstructive pulmonary disease, unspecified COPD type J44.9 Active 12656266 Problem 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.49 Active 213996227 ALLERGIES Unknown Allergies SOCIAL HISTORY No smoking Hx information available PLAN OF CARE VITAL SIGNS MEDICATIONS Unknown Medications RESULTS No Results PROCEDURES No Known procedures IMMUNIZATIONS No Known Immunizations
--- OUTSIDE RECORDS SUMMARY | 2017-07-10 15:01 | XMS REPORT ---
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 Active 491761131 Problem Onychomycosis B35.1 Active 829709529 Problem Anxiety F41.9 Active 61735369 Problem Abnormal carotid ultrasound R93.8 Active 694465492 Problem Tremor R25.1 Active 57698572 Problem Hypomagnesemia E83.42 Active 632899107 Problem Allergy to iodine Z88.8 Active 497026806 Problem Memory loss R41.3 Active 17984819 Problem Atherosclerotic heart disease of [place] coronary artery without angina pectoris I25.10 Active 7707559424323 Problem Chronic obstructive pulmonary disease, unspecified COPD type J44.9 Active 81093198 Problem Tobacco abuse Z72.0 Active 01129843 Problem Hypertension I10 Active 21689270 Problem Mixed hyperlipidemia E78.2 Active 074192228 Problem 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.49 Active 501969771 Problem Type 2 diabetes mellitus with diabetic neuropathy E11.40 Active 47424593 Problem Depression F32.9 Active 36148392 Problem Neuropathy G62.9 Active 423323738 Problem Primary insomnia F51.01 Active 6690215 ALLERGIES No Information SOCIAL HISTORY Never Assessed PLAN OF CARE VITAL SIGNS MEDICATIONS Medication Instructions Dosage Frequency Start Date End Date Duration Status Voltaren 1 % Transdermal affected joints once daily and PRN, max 4 times daily Apply 2grams to joints above waist & 4gram to joints below waist September, Active RESULTS No Results PROCEDURES No Known [...] one scheduled or discussed Medical History Echo 117 PAP 55 mmHg Moderate Aortic Valve Sclerosis [...]
--- OUTSIDE RECORDS SUMMARY | 2017-07-10 15:01 | XMS REPORT ---
Author Author TATY PURVIS Organization [facility] Address [address] [place] [address] Care Team Providers Care Acoustic Warfare Analyst Name Role Phone TATY PUVRIS Unavailable PROBLEMS Type Condition ICD9-CM Code NJB52-HH Code Onset Dates Condition Status SNOMED Code Problem Depression F32.9 Active 79092986 Problem Hypokalemia E87.6 Active 82560174 Problem Primary insomnia F51.01 Active 3081766 Problem Allergy to iodine Z88.8 Active 981937846 Problem Abnormal carotid ultrasound R93.8 Active 598983855 Problem Memory loss R41.3 Active 63233558 Problem Vision changes H53.9 Active 26172809 Problem Daytime hypersomnia G47.19 Active 50738993094995 Problem Hypomagnesemia E83.42 Active 698314451 Problem Tremor R25.1 Active 86219926 Problem Hypertension I10 Active 04165280 Problem Tobacco abuse Z72.0 Active 18072725 Problem Anxiety F41.9 Active 03265236 Problem Neuropathy G62.9 Active 385904408 Problem [facility] current use of insulin Z79.4 Active 718213229 Problem Mixed hyperlipidemia E78.2 Active 292051278 Problem Atherosclerotic heart disease of [place] coronary artery without angina pectoris I25.10 Active 5560108395503 Problem Type 2 diabetes mellitus with diabetic neuropathy E11.40 Active 43511084 Problem Chronic obstructive pulmonary disease, unspecified COPD type J44.9 Active 80677702 Problem 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.49 Active 649998333 ALLERGIES Unknown Allergies SOCIAL HISTORY No smoking Hx information available PLAN OF CARE VITAL SIGNS MEDICATIONS Unknown Medications RESULTS No Results PROCEDURES No Known procedures IMMUNIZATIONS No Known Immunizations
--- OUTSIDE RECORDS SUMMARY | 2017-07-10 15:01 | XMS REPORT ---
Author Author TATY PURVIS [facility] Address [address] [place] [address] Care Team Providers Care Supervisor Assembly Room Name Role Phone TATY PURVIS Unavailable PROBLEMS Type Condition ICD9-CM Code AAC50-GL Code Onset Dates Condition Status SNOMED Code Problem Depression F32.9 Active 91475010 Problem Hypokalemia E87.6 Active 66369651 Problem Primary insomnia F51.01 Active 2912056 Problem Allergy to iodine Z88.8 Active 942804460 Problem Abnormal carotid ultrasound R93.8 Active 356238108 Problem Hypomagnesemia E83.42 Active 904458993 Problem Vision changes H53.9 Active 83709995 Problem Daytime hypersomnia G47.19 Active 03488768654470 Problem Memory loss R41.3 Active 08403825 Problem Tremor R25.1 Active 08923310 Problem Tobacco abuse Z72.0 Active 08417886 Problem Hypertension I10 Active 87410335 Problem Anxiety F41.9 Active 85337310 Problem [facility] current use of insulin Z79.4 Active 275194905 Problem Type 2 diabetes mellitus with diabetic neuropathy E11.40 Active 36294053 Problem Neuropathy G62.9 Active 498118555 Problem Atherosclerotic heart disease of [place] coronary artery without angina pectoris I25.10 Active 0542881546938 Problem Mixed hyperlipidemia E78.2 Active 182441173 Problem Chronic obstructive pulmonary disease, unspecified COPD type J44.9 Active 57377488 Problem 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.49 Active 652615188 ALLERGIES Substance Reaction Event Type Date Status Metformin HCl Unknown Drug Allergy Jun, Active Levemir Unknown Drug Allergy Jun, Active Iodine Unknown Drug Allergy Jun, Active Biaxin Unknown Drug Allergy Jun, Active SOCIAL HISTORY Never Assessed PLAN OF CARE Activity Details Follow Up 3-4 Weeks Reason:DM VITAL SIGNS Height 64 in 2016-07-03 Weight 165.9 lbs 2016-07-03 Temperature 98.1 degrees Fahrenheit 2016-07-03 Heart Rate 72 bpm 2016-07-03 Respiratory Rate 18 2016-07-03 BMI 28.47 kg/m2 2016-07-03 Blood pressure systolic 142 mmHg 2016-07-03 Blood pressure diastolic 76 mmHg 2016-07-03 MEDICATIONS Medication Instructions Dosage Frequency Start Date End Date Duration Status PredniSONE 20 mg Orally Once a day 1 tablet 24h Jun, Jun, 05 days Active Indomethacin 50 mg Orally Twice a day 1 capsule with food or milk 12h Jun, Jul, 30 day(s) Active Rozerem 8 MG Orally Once a day 1 tablet at bedtime as needed 24h 30 days Active Lisinopril 5 mg oral daily take 1 tablet by Oral route 1 time per day for blood pressure 24h 90 days Active Ventolin HFA 90 mcg/actuation Inhalation as directed inhale 2 puffs by Inhalation route as needed every 4-6 hours PRN for cough or wheeze Active BD Pen Needle Rox U/F 32G X 4 MM subcutaneously 2 times a day as directed 12h Active Gabapentin 600 MG Orally Three times a day 1 tablet 8h Dec, Active Toujeo SoloStar 300 UNIT/ML Subcutaneous Once a day 20 units 24h Active Oxygen & Tubing 2 liters Active Gabapentin 300 MG Orally Three times a day 2 capsules 8h Active Potassium Chloride 20 MEQ/15ML (10%) Orally Once a day 15 ml 24h Jun, Active RESULTS Name Result Date Reference Range MAGNESIUM, SERUM 2016-07-03 Magnesium, Serum 1.5 1.6-2.3 CMP 2016-07-03 Glucose, Serum 253 65-99 BUN 18 6-24 Creatinine, Serum 0.87 0.57-1.00 eGFR If NonAfricn Am 74 >59 eGFR If Africn Am 86 >59 BUN/Creatinine Ratio 21 9-23 Sodium, Serum 142 134-144 Potassium, Serum 4.5 3.5-5.2 Chloride, Serum 100 96-106 Carbon Dioxide, Total 27 18-29 Calcium, Serum 9.5 8.7-10.2 Protein, Total, Serum 6.7 6.0-8.5 Albumin, Serum 3.5 3.5-5.5 Globulin, Total 3.2 1.5-4.5 A/G Ratio 1.1 1.1-2.5 Bilirubin, Total <0.2 0.0-1.2 Alkaline Phosphatase, S 85 39-117 AST (SGOT) 8 0-40 ALT (SGPT) 9 0-32 Xray : Rib Series, Left 2016-07-03 PROCEDURES Procedure Date Ordered Result Body Site LAB NOT BILLED BY [employer] Jul 03, 2016 VENIPUNCT, ROUTINE* Jul 03, 2016 IMMUNIZATIONS No Known Immunizations MEDICAL (GENERAL) HISTORY [...]
--- OUTSIDE RECORDS SUMMARY | 2017-07-10 15:01 | XMS REPORT ---
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.4 Active 907127340 Problem Onychomycosis B35.1 Active 117818533 Problem Anxiety F41.9 Active 93325597 Problem Abnormal carotid ultrasound R93.8 Active 267177883 Problem Tremor R25.1 Active 97680971 Problem Hypomagnesemia E83.42 Active 498141293 Problem Allergy to iodine Z88.8 Active 889068827 Problem Memory loss R41.3 Active 58368722 Problem Atherosclerotic heart disease of [place] coronary artery without angina pectoris I25.10 Active 2589878318885 Problem Chronic obstructive pulmonary disease, unspecified COPD type J44.9 Active 83828825 Problem Tobacco abuse Z72.0 Active 83194944 Problem Hypertension I10 Active 71651664 Problem Mixed hyperlipidemia E78.2 Active 183452958 Problem 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.49 Active 874864378 Problem Type 2 diabetes mellitus with diabetic neuropathy E11.40 Active 17965510 Problem Depression F32.9 Active 31818577 Problem Neuropathy G62.9 Active 925954728 Problem Primary insomnia F51.01 Active 0528615 ALLERGIES No Information SOCIAL HISTORY Never Assessed [...]
--- OUTSIDE RECORDS SUMMARY | 2017-07-10 15:02 | XMS REPORT ---
Author Author TATY PURVIS [facility] Address [address] [place] [address] Care Team Providers Care Crusher Name Role Phone TATY PURVIS Unavailable PROBLEMS Type Condition ICD9-CM Code [id number] Code Onset Dates Condition Status SNOMED Code Problem Hypokalemia E87.6 Active 32816398 Problem Vision changes H53.9 Active 71563797 Problem Daytime hypersomnia G47.19 Active 64163804303915 Problem Constipation by delayed colonic transit K59.01 Active 61567467 Problem nursing home current use of insulin Z79.4 Active 966938702 Problem Onychomycosis B35.1 Active 595820122 Problem Anxiety F41.9 Active 27199632 Problem Abnormal carotid ultrasound R93.8 Active 305214335 Problem Tremor R25.1 Active 29610543 Problem Hypomagnesemia E83.42 Active 920342460 Problem Allergy to iodine Z88.8 Active 812531883 Problem Memory loss R41.3 Active 26227463 Problem Atherosclerotic heart disease of [place] coronary artery without angina pectoris I25.10 Active 3951785651432 Problem Chronic obstructive pulmonary disease, unspecified COPD type J44.9 Active 97585349 Problem Tobacco abuse Z72.0 Active 44535369 Problem Hypertension I10 Active 63252103 Problem Mixed hyperlipidemia E78.2 Active 675853149 Problem 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.49 Active 140503372 Problem Type 2 diabetes mellitus with diabetic neuropathy E11.40 Active 82369213 Problem Depression F32.9 Active 88987728 Problem Neuropathy G62.9 Active 240102553 Problem Primary insomnia F51.01 Active 1055209 ALLERGIES No Information SOCIAL HISTORY Never Assessed PLAN OF CARE VITAL SIGNS MEDICATIONS Medication Instructions Dosage Frequency Start Date End Date Duration Status Tylenol/Codeine #3 300-30 MG Orally 2 times a day as needed 1 tablet as needed Jun, Jul, 21 days Active RESULTS No Results PROCEDURES No Known [...] one scheduled or discussed Medical History Echo 17 PAP 55 mmHg Moderate Aortic Valve Sclerosis [...]
--- OUTSIDE RECORDS SUMMARY | 2017-07-10 15:02 | XMS REPORT ---
Author Author TATY PURVIS Organization [facility] Address [address] [place] [address] Care Team Providers Care Orange Picker Name Role Phone TATY PURVIS Unavailable PROBLEMS Type Condition ICD9-CM Code [id number]-[id number] Code Onset Dates Condition Status SNOMED Code Problem Hypokalemia E87.6 Active 32202984 Problem Vision changes H53.9 Active 70068319 Problem Daytime hypersomnia G47.19 Active 92952057321201 Problem Constipation by delayed colonic transit K59.01 Active 59014634 Problem [facility] current use of insulin Z79.4 Active 759359529 Problem Onychomycosis B35.1 Active 246299283 Problem Anxiety F41.9 Active 54816134 Problem Abnormal carotid ultrasound R93.8 Active 680538060 Problem Tremor R25.1 Active 80232779 Problem Hypomagnesemia E83.42 Active 038813931 Problem Allergy to iodine Z88.8 Active 658141535 Problem Memory loss R41.3 Active 31858827 Problem Atherosclerotic heart disease of [place] coronary artery without angina pectoris I25.10 Active 4282601426058 Problem Chronic obstructive pulmonary disease, unspecified COPD type J44.9 Active 96900793 Problem Tobacco abuse Z72.0 Active 22652110 Problem Hypertension I10 Active 55416444 Problem Mixed hyperlipidemia E78.2 Active 333622969 Problem 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.49 Active 631028743 Problem Type 2 diabetes mellitus with diabetic neuropathy E11.40 Active 38265204 Problem Depression F32.9 Active 45508261 Problem Neuropathy G62.9 Active 820493823 Problem Primary insomnia F51.01 Active 3255689 ALLERGIES No Information SOCIAL HISTORY Never Assessed PLAN OF CARE VITAL SIGNS MEDICATIONS Medication Instructions Dosage Frequency Start Date End Date Duration Status Voltaren 1 % Transdermal affected joints once daily and PRN, max 4 times daily 1 gram September, Active Indomethacin 50 mg Orally Twice a day 1 capsule with food or milk 12h September, September, 15 days Active RESULTS No Results PROCEDURES No [...]
--- OUTSIDE RECORDS SUMMARY | 2017-07-10 15:02 | XMS REPORT ---
Author Author TATY PURVIS Organization [facility] Address [address] [place] [address] Care Team Providers Care Chief Psychology Name Role Phone TATY PURVIS Unavailable PROBLEMS Type Condition ICD9-CM Code [id number]-IG Code Onset Dates Condition Status SNOMED Code Problem Depression F32.9 Active 88423920 Problem Hypokalemia E87.6 Active 98727769 Problem Primary insomnia F51.01 Active 4616824 Problem Allergy to iodine Z88.8 Active 769564618 Problem Abnormal carotid ultrasound R93.8 Active 629965090 Problem Memory loss R41.3 Active 54013554 Problem Vision changes H53.9 Active 69290355 Problem Daytime hypersomnia G47.19 Active 02812707366879 Problem Hypomagnesemia E83.42 Active 942257250 Problem Tremor R25.1 Active 96561683 Problem Hypertension I10 Active 19755306 Problem Tobacco abuse Z72.0 Active 12549441 Problem Anxiety F41.9 Active 63049985 Problem Neuropathy G62.9 Active 785297368 Problem jail current use of insulin Z79.4 Active 648394476 Problem Mixed hyperlipidemia E78.2 Active 019461837 Problem Atherosclerotic heart disease of [place] coronary artery without angina pectoris I25.10 Active 9781652553148 Problem Type 2 diabetes mellitus with diabetic neuropathy E11.40 Active 89665357 Problem Chronic obstructive pulmonary disease, unspecified COPD type J44.9 Active 86779672 Problem 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.49 Active [id number] ALLERGIES Unknown Allergies SOCIAL HISTORY No smoking Hx information available PLAN OF CARE VITAL SIGNS MEDICATIONS Medication Instructions Dosage Frequency Start Date End Date Duration Status PredniSONE 20 mg 2 tablets 12 hours prior to procedure and 2 tablets 2hours prior to procedure Apr, Active RESULTS No Results PROCEDURES No Known procedures IMMUNIZATIONS No Known Immunizations
--- OUTSIDE RECORDS SUMMARY | 2017-07-10 15:02 | XMS REPORT ---
Author Author TATY PURVIS [facility] Address [address] [place] [address] Care Team Providers Care Fire Management Technician Name Role Phone TATY PURVIS Unavailable PROBLEMS Type Condition ICD9-CM Code JZO53-CT Code Onset Dates Condition Status SNOMED Code Problem Hypokalemia E87.6 Active 04589585 Problem Vision changes H53.9 Active 95820729 Problem Daytime hypersomnia G47.19 Active 59493726198761 Problem Constipation by delayed colonic transit K59.01 Active 72212537 Problem middle or intermediate [employer] principal current use of insulin Z79.4 Active 291736012 Problem Onychomycosis B35.1 Active 404633653 Problem Anxiety F41.9 Active 89906323 Problem Abnormal carotid ultrasound R93.8 Active 402808480 Problem Tremor R25.1 Active 93982287 Problem Hypomagnesemia E83.42 Active 316873424 Problem Allergy to iodine Z88.8 Active 333169371 Problem Memory loss R41.3 Active 35571309 Problem Atherosclerotic heart disease of [place] coronary artery without angina pectoris I25.10 Active 8756508487234 Problem Chronic obstructive pulmonary disease, unspecified COPD type J44.9 Active 98540028 Problem Tobacco abuse Z72.0 Active 72844271 Problem Hypertension I10 Active 15296857 Problem Mixed hyperlipidemia E78.2 Active 243318696 Problem 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.49 Active 136011655 Problem Type 2 diabetes mellitus with diabetic neuropathy E11.40 Active 56497421 Problem Depression F32.9 Active 83970289 Problem Neuropathy G62.9 Active 195333867 Problem Primary insomnia F51.01 Active 0182032 ALLERGIES No Information SOCIAL HISTORY Never Assessed [...]
--- OUTSIDE RECORDS SUMMARY | 2017-07-10 15:05 | XMS REPORT | Continuity of Care Document ---
Author Author [facility] Address Unknown Phone Unavailable Allergies Active Description Code Type Severity Reaction Onset Reported/Identified Relationship to Patient Clinical Status Yes Biaxin Drug Allergy N/A N/A 02/20/2012 Yes iodine Drug Allergy N/A N/A 02/20/2012 Yes Biaxin Drug Allergy 02/20/2012 Yes iodine Drug Allergy 02/20/2012 Yes metformin 1,000 mg tablet Drug Allergy N/A N/A 11/08/2012 Yes TAPE TAPE Unknown N/A 04/26/2014 Yes clarithromycin [id number] Drug Allergy Unknown N/A 05/24/2016 Yes iodine [id number] Drug Allergy Unknown N/A 05/24/2016 Yes metformin [id number] Drug Allergy Unknown N/A 05/24/2016 Medications There is no data. Problems Date Dx Coded Attending Type Code [...] MD 250.00 DIABETES MELLITUS TYPE 2 01/21/2012 PARRIS GARCIA, LOYD Enriquez 780.79 MALAISE AND FATIGUE 01/21/2012 LUCIANO CONRAD MD 250.00 DIABETES MELLITUS TYPE 2 01/21/2012 LUCIANO CONRAD MD 780.79 MALAISE AND FATIGUE 01/21/2012 ANAMARIA GARCIA, LUCIANO 250.00 DIABETES MELLITUS TYPE 2 01/21/2012 LUCIANO CONRAD MD 780.79 MALAISE AND FATIGUE 01/21/2012 ANAMARIA GARCIA, LUCIANO 250.00 DIABETES MELLITUS TYPE 2 01/21/2012 LUCIANO CONRAD MD 780.79 MALAISE AND FATIGUE 01/21/2012 PAVEL TIRE GROOVER, PRAKASH S 250.00 DIABETES MELLITUS TYPE 2 01/21/2012 PAVEL ODELL, PRAKASH S 780.79 MALAISE AND FATIGUE 01/21/2012 CARLOS RODRIGUEZN, HOSEA R 250.00 DIABETES MELLITUS TYPE 2 01/21/2012 CARLOS RODRIGUEZN, HOSEA R 780.79 MALAISE AND FATIGUE 01/21/2012 CARLOS ODELL, HOSEA R 250.00 DIABETES MELLITUS TYPE 2 01/21/2012 CARLOS RODRIGUEZN, HOSEA R 780.79 MALAISE AND FATIGUE 01/21/2012 CARLOS RODRIGUEZN, HOSEA R 250.00 DIABETES MELLITUS TYPE 2 01/21/2012 CARLOS RODRIGUEZN, HOSEA R 780.79 MALAISE AND FATIGUE 01/21/2012 YANIV TIRE GROOVER, TATY L 250.00 DIABETES MELLITUS TYPE 2 01/21/2012 YANIV ODELL, TATY L 780.79 MALAISE AND FATIGUE 01/21/2012 CARLOS ODELL, HOSEA R 250.00 DIABETES MELLITUS TYPE 2 01/21/2012 CARLOS RODRIGUEZN, HSOEA R 780.79 MALAISE AND FATIGUE 01/21/2012 CARLOS RODRIGUEZN, HOSEA R 250.00 DIABETES MELLITUS TYPE 2 01/21/2012 CARLOS RODRIGUEZN, HOSEA R 780.79 MALAISE AND FATIGUE 01/21/2012 CARLOS RODRIGUEZN, HOSEA R 250.00 DIABETES MELLITUS TYPE 2 01/21/2012 CARLOS TIRE GROOVER, HOSEA R 780.79 MALAISE AND FATIGUE 01/21/2012 LIMA DO, SUKHDEEP K 250.00 DIABETES MELLITUS TYPE 2 01/21/2012 LIMA DO, SUKHDEEP K 780.79 MALAISE AND FATIGUE 01/21/2012 LELA PEDRAZA, JUDAH W 250.00 DIABETES MELLITUS TYPE 2 01/21/2012 LELA MF, JUDAH W 780.79 MALAISE AND FATIGUE 01/21/2012 CARLOS TIRE GROOVER, HOSEA R 250.00 DIABETES MELLITUS TYPE 2 01/21/2012 CARLOS TIRE GROOVER, HOSEA R 780.79 MALAISE AND FATIGUE 01/21/2012 CARLOS TIRE GROOVER, HOSEA R 250.00 DIABETES MELLITUS TYPE 2 01/21/2012 CARLOS TIRE GROOVER, HOSEA R 780.79 MALAISE AND FATIGUE 01/21/2012 CARLOS TIRE GROOVER, HOSEA R 250.00 DIABETES MELLITUS TYPE 2 01/21/2012 CARLOS TIRE GROOVER, HOSEA R 780.79 MALAISE AND FATIGUE 01/21/2012 ANAMARIA GARCIA, LUCIANO 250.00 DIABETES MELLITUS TYPE 2 01/21/2012 ANAMARIA GARCIA, LUCIANO 780.79 MALAISE AND FATIGUE 01/21/2012 CARLOS TIRE GROOVER, HOSEA R 250.00 DIABETES MELLITUS TYPE 2 01/21/2012 CARLOS TIRE GROOVER, HOSEA R 780.79 MALAISE AND FATIGUE 01/21/2012 CARLOS TIRE GROOVER, HOSEA R 250.00 DIABETES MELLITUS TYPE 2 01/21/2012 CARLOS TIRE GROOVER, HOSEA R 780.79 MALAISE AND FATIGUE 02/20/2012 [...] GARCIA, LUCIANO V81.0 HEART DISEASE SCREENING 02/20/2012 KERRY ZHAO APRNA S 078.19 WARTS, COMMON 02/20/2012 PAVEL ODELL, PRAKASH S 380.4 CERUMEN IMPACTION 02/20/2012 DAVID ZHAO APRNNDA S V81.0 HEART DISEASE SCREENING 02/20/2012 CARLOS TIRE GROOVER, HOSEA R 078.19 WARTS, COMMON 02/20/2012 CARLOS TIRE GROOVER, HOSEA R 380.4 CERUMEN IMPACTION 02/20/2012 CARLOS TIRE GROOVER, HOSEA R V81.0 HEART DISEASE SCREENING 02/20/2012 CARLOS TIRE GROOVER, HOSEA R 078.19 WARTS, COMMON 02/20/2012 CARLOS TIRE GROOVER, HOSEA R 380.4 CERUMEN IMPACTION 02/20/2012 CARLOS TIRE GROOVER, HOSEA R V81.0 HEART DISEASE SCREENING 02/20/2012 CARLOS TIRE GROOVER, HOSEA R 078.19 WARTS, COMMON 02/20/2012 CARLOS TIRE GROOVER, HOSEA R 380.4 CERUMEN IMPACTION 02/20/2012 CARLOS TIRE GROOVER, HOSEA R V81.0 HEART DISEASE SCREENING 02/20/2012 MADL TIRE GROOVER, TATY L 078.19 WARTS, COMMON 02/20/2012 MADL TIRE GROOVER, TATY L 380.4 CERUMEN IMPACTION 02/20/2012 MADL TIRE GROOVER, TATY L V81.0 HEART DISEASE SCREENING 02/20/2012 CARLOS TIRE GROOVER, HOSEA R 078.19 WARTS, COMMON 02/20/2012 CARLOS TIRE GROOVER, HOSEA R 380.4 CERUMEN IMPACTION 02/20/2012 CARLOS TIRE GROOVER, HOSEA R V81.0 HEART DISEASE SCREENING 02/20/2012 CARLOS TIRE GROOVER, HOSEA R 078.19 WARTS, COMMON 02/20/2012 CARLOS TIRE GROOVER, HOSEA R 380.4 CERUMEN IMPACTION 02/20/2012 CARLOS TIRE GROOVER, HOSEA R V81.0 HEART DISEASE SCREENING 02/20/2012 CARLOS TIRE GROOVER, HOSEA R 078.19 WARTS, COMMON 02/20/2012 CARLOS TIRE GROOVER, HOSEA R 380.4 CERUMEN IMPACTION 02/20/2012 CARLOS TIRE GROOVER, HOSEA R V81.0 HEART DISEASE SCREENING 02/20/2012 LIMA DO, SUKHDEEP K 078.19 WARTS, COMMON 02/20/2012 LIMA DO, SUKHDEEP K 380.4 CERUMEN IMPACTION 02/20/2012 LIMA DO, SUKHDEEP K V81.0 HEART DISEASE SCREENING 02/20/2012 [facility], JUDAH W 078.19 WARTS, COMMON 02/20/2012 [facility], JUDAH W 380.4 CERUMEN IMPACTION 02/20/2012 [facility], JUDAH W V81.0 HEART DISEASE SCREENING 02/20/2012 CARLOS TIRE GROOVER, HOSEA R 078.19 WARTS, COMMON 02/20/2012 CARLOS TIRE GROOVER, HOSEA R 380.4 CERUMEN IMPACTION 02/20/2012 CARLOS TIRE GROOVER, HOSEA R V81.0 HEART DISEASE SCREENING 02/20/2012 CARLOS TIRE GROOVER, HOSEA R 078.19 WARTS, COMMON 02/20/2012 CARLOS TIRE GROOVER, HOSEA R 380.4 CERUMEN IMPACTION 02/20/2012 CARLOS TIRE GROOVER, HOSEA R V81.0 HEART DISEASE SCREENING 02/20/2012 CARLOS TIRE GROOVER, HOSEA R 078.19 WARTS, COMMON 02/20/2012 CARLOS TIRE GROOVER, HOSEA R 380.4 CERUMEN IMPACTION 02/20/2012 CARLOS TIRE GROOVER, HOSEA R V81.0 HEART DISEASE SCREENING 02/20/2012 ANAMARIA GARCIA, LUCIANO 078.19 WARTS, COMMON 02/20/2012 ANAMARIA GARCIA, LUCIANO 380.4 CERUMEN IMPACTION 02/20/2012 LUCIANO CONRAD MD V81.0 HEART DISEASE SCREENING 02/20/2012 CARLOS TIRE GROOVER, HOSEA R 078.19 WARTS, COMMON 02/20/2012 CARLOS TIRE GROOVER, HOSEA R 380.4 CERUMEN IMPACTION 02/20/2012 CARLOS TIRE GROOVER, HOSEA R V81.0 HEART DISEASE SCREENING 02/20/2012 CARLOS TIRE GROOVER, HOSEA R 078.19 WARTS, COMMON 02/20/2012 CARLOS ODELL, HOSEA R 380.4 CERUMEN IMPACTION 02/20/2012 CARLOS ODELL, HOSEA R V81.0 HEART DISEASE SCREENING 02/23/2012 Ot 380.4 IMPACTED CERUMEN 02/23/2012 Ot 719.43 JOINT PAIN- FOREARM 06/23/2012 079.99 VIRAL SYNDROME 06/23/2012 079.99 VIRAL SYNDROME 06/23/2012 079.99 VIRAL SYNDROME 06/23/2012 079.99 VIRAL SYNDROME 06/23/2012 PARRIS GARCIA, LOYD Enriquez 079.99 VIRAL SYNDROME 06/23/2012 LOYD NYE MD 079.99 VIRAL SYNDROME 06/23/2012 LOYD NYE MD 079.99 VIRAL SYNDROME 06/23/2012 LUCIANO CONRAD MD 079.99 VIRAL SYNDROME 06/23/2012 LUCIANO CONRAD MD 079.99 VIRAL SYNDROME 06/23/2012 LUCIANO CONRAD MD 079.99 VIRAL SYNDROME 06/23/2012 PAVEL ODELL, PRAKASH Collins 079.99 VIRAL SYNDROME 06/23/2012 CARLOS ODELL, HOSEA R 079.99 VIRAL SYNDROME 06/23/2012 CARLOS ODELL, HOSEA R 079.99 VIRAL SYNDROME 06/23/2012 CARLOS RODRIGUEZN, HOSEA R 079.99 VIRAL SYNDROME 06/23/2012 YANIV ODELL, TATY Vasile 079.99 VIRAL SYNDROME 06/23/2012 CARLOS TIRE GROOVER, HOSEA R 079.99 VIRAL SYNDROME 06/23/2012 CARLOS TIRE GROOVER, HOSEA R 079.99 VIRAL SYNDROME 06/23/2012 CARLOS TIRE GROOVER, HOSEA R 079.99 VIRAL SYNDROME 06/23/2012 JANIE NICHOLAS, SUKHDEEP K 079.99 VIRAL SYNDROME 06/23/2012 LELA MAGDALENO, JUDAH W 079.99 VIRAL SYNDROME 06/23/2012 CARLOS TIRE GROOVER, HOSEA R 079.99 VIRAL SYNDROME 06/23/2012 CARLOS TIRE GROOVER, HOSEA R 079.99 VIRAL SYNDROME 06/23/2012 CARLOS TIRE GROOVER, HOSEA R 079.99 VIRAL SYNDROME 06/23/2012 ANAMARIA GARCIA, LUCIANO 079.99 VIRAL SYNDROME 06/23/2012 CARLOS TIRE GROOVER, HOSEA R 079.99 VIRAL SYNDROME 06/23/2012 CARLOS TIRE GROOVER, HOSEA R 079.99 VIRAL SYNDROME 09/28/2012 305.1 [...] 461.9 SINUSITIS ACUTE 09/28/2012 PARRIS GARCIA, LOYD Enirquez 466.0 BRONCHITIS, ACUTE 09/28/2012 LOYD NYE MD [...] V65.42 COUNSELING - SMOKING CESSATION 09/28/2012 PAVEL ODELL PRAKASH S 305.1 NICOTINE DEPENDENCE 09/28/2012 PAVEL ODELL PRAKASH S 461.9 SINUSITIS ACUTE 09/28/2012 PAVEL ODELL PRAKASH S 466.0 BRONCHITIS, ACUTE 09/28/2012 PAVEL ODELL, PRAKASH S V65.42 COUNSELING - SMOKING CESSATION 09/28/2012 CARLOS TIRE GROOVER, HOSEA R 305.1 NICOTINE DEPENDENCE 09/28/2012 CARLOS TIRE GROOVER, HOSEA R 461.9 SINUSITIS ACUTE 09/28/2012 CARLOS TIRE GROOVER, HOSEA R 466.0 BRONCHITIS, ACUTE 09/28/2012 CARLOS TIRE GROOVER, HOSEA R V65.42 COUNSELING - SMOKING CESSATION 09/28/2012 CARLOS TIRE GROOVER, HOSEA R 305.1 NICOTINE DEPENDENCE 09/28/2012 CARLOS TIRE GROOVER, HOSEA R 461.9 SINUSITIS ACUTE 09/28/2012 CARLOS TIRE GROOVER, HOSEA R 466.0 BRONCHITIS, ACUTE 09/28/2012 CARLOS TIRE GROOVER, HOSEA R V65.42 COUNSELING - SMOKING CESSATION 09/28/2012 CARLOS TIRE GROOVER, HOSEA R 305.1 NICOTINE DEPENDENCE 09/28/2012 CARLOS TIRE GROOVER, HOSEA R 461.9 SINUSITIS ACUTE 09/28/2012 CARLOS TIRE GROOVER, HOSEA R 466.0 BRONCHITIS, ACUTE 09/28/2012 CARLOS TIRE GROOVER, HOSEA R V65.42 COUNSELING - SMOKING CESSATION 09/28/2012 MADL TIRE GROOVER, TATY L 305.1 NICOTINE DEPENDENCE 09/28/2012 MADL TIRE GROOVER, TATY L 461.9 SINUSITIS ACUTE 09/28/2012 MADL TIRE GROOVER, TATY L 466.0 BRONCHITIS, ACUTE 09/28/2012 MADL TIRE GROOVER, TATY L V65.42 COUNSELING - SMOKING CESSATION 09/28/2012 CARLOS TIRE GROOVER, HOSEA R 305.1 NICOTINE DEPENDENCE 09/28/2012 CARLOS TIRE GROOVER, HOSEA R 461.9 SINUSITIS ACUTE 09/28/2012 CARLOS TIRE GROOVER, HOSEA R 466.0 BRONCHITIS, ACUTE 09/28/2012 CARLOS TIRE GROOVER, HOSEA R V65.42 COUNSELING - SMOKING CESSATION 09/28/2012 CARLOS TIRE GROOVER, HOSEA R 305.1 NICOTINE DEPENDENCE 09/28/2012 CARLOS TIRE GROOVER, HOSEA R 461.9 SINUSITIS ACUTE 09/28/2012 CARLOS TIRE GROOVER, HOSEA R 466.0 BRONCHITIS, ACUTE 09/28/2012 CARLOS TIRE GROOVER, HOSEA R V65.42 COUNSELING - SMOKING CESSATION 09/28/2012 CARLOS TIRE GROOVER, HOSEA R 305.1 NICOTINE DEPENDENCE 09/28/2012 CARLOS TIRE GROOVER, HOSEA R 461.9 SINUSITIS ACUTE 09/28/2012 CARLOS TIRE GROOVER, HOSEA R 466.0 BRONCHITIS, ACUTE 09/28/2012 CARLOS TIRE GROOVER, HOSEA R V65.42 COUNSELING - SMOKING CESSATION [...] V65.42 COUNSELING - SMOKING CESSATION 09/28/2012 CARLOS TIRE GROOVER, HOSEA R 305.1 NICOTINE DEPENDENCE 09/28/2012 CARLOS TIRE GROOVER, HOSEA R 461.9 SINUSITIS ACUTE 09/28/2012 CARLOS TIRE GROOVER, HOSEA R 466.0 BRONCHITIS, ACUTE 09/28/2012 CARLOS TIRE GROOVER, HOSEA R V65.42 COUNSELING - SMOKING CESSATION 09/28/2012 CARLOS TIRE GROOVER, HOSEA R 305.1 NICOTINE DEPENDENCE 09/28/2012 CARLOS TIRE GROOVER, HOSEA R 461.9 SINUSITIS ACUTE 09/28/2012 CARLOS TIRE GROOVER, HOSEA R 466.0 BRONCHITIS, ACUTE 09/28/2012 CARLOS TIRE GROOVER, HOSEA R V65.42 COUNSELING - SMOKING CESSATION 09/28/2012 CARLOS TIRE GROOVER, HOSEA R 305.1 NICOTINE DEPENDENCE 09/28/2012 CARLOS TIRE GROOVER, HOSEA R 461.9 SINUSITIS ACUTE 09/28/2012 CARLOS TIRE GROOVER, HOSEA R 466.0 BRONCHITIS, ACUTE 09/28/2012 CARLOS TIRE GROOVER, HOSEA R V65.42 COUNSELING - SMOKING CESSATION 09/28/2012 LUCIANO CONRAD MD 305.1 NICOTINE DEPENDENCE 09/28/2012 LUCIANO CONRAD MD 461.9 SINUSITIS ACUTE 09/28/2012 LUCIANO CONRAD MD 466.0 BRONCHITIS, ACUTE 09/28/2012 LUCIANO CONRAD MD V65.42 COUNSELING - SMOKING CESSATION 09/28/2012 CARLOS TIRE GROOVER, HOSEA R 305.1 NICOTINE DEPENDENCE 09/28/2012 CARLOS TIRE GROOVER, HOSEA R 461.9 SINUSITIS ACUTE 09/28/2012 CARLOS TIRE GROOVER, HOSEA R 466.0 BRONCHITIS, ACUTE 09/28/2012 CARLOS TIRE GROOVER, HOSEA R V65.42 COUNSELING - SMOKING CESSATION 09/28/2012 CARLOS TIRE GROOVER, HOSEA R 305.1 NICOTINE DEPENDENCE 09/28/2012 CARLOS TIRE GROOVER, HOSEA R 461.9 SINUSITIS ACUTE 09/28/2012 CARLOS TIRE GROOVER, HOSEA R 466.0 BRONCHITIS, ACUTE 09/28/2012 CARLOS TIRE GROOVER, HOSEA R V65.42 COUNSELING - SMOKING CESSATION [...] OBSTRUCTIVE PULMONARY DISEASE 10/08/2012 PAVEL ODELL, PRAKASH Collins 496 CHRONIC OBSTRUCTIVE PULMONARY DISEASE 10/08/2012 CARLOS TIRE GROOVER, HOSEA R 496 CHRONIC OBSTRUCTIVE PULMONARY DISEASE 10/08/2012 CARLOS TIRE GROOVER, HOSEA R 496 CHRONIC OBSTRUCTIVE PULMONARY DISEASE 10/08/2012 CARLOS TIRE GROOVER, HOSEA R 496 CHRONIC OBSTRUCTIVE PULMONARY DISEASE 10/08/2012 TATY PURVIS APRN 496 CHRONIC OBSTRUCTIVE PULMONARY DISEASE 10/08/2012 CARLOS TIRE GROOVER, HOSEA R 496 CHRONIC OBSTRUCTIVE PULMONARY DISEASE 10/08/2012 CARLOS TIRE GROOVER, HOSEA R 496 CHRONIC OBSTRUCTIVE PULMONARY DISEASE 10/08/2012 CARLOS TIRE GROOVER, HOSEA R 496 CHRONIC OBSTRUCTIVE PULMONARY DISEASE 10/08/2012 SUKHDEEP LIMA DO 496 CHRONIC OBSTRUCTIVE PULMONARY DISEASE 10/08/2012 LELA MAGDALENOF, JUDAH W 496 CHRONIC OBSTRUCTIVE PULMONARY DISEASE 10/08/2012 CARLOS TIRE GROOVER, HOSEA R 496 CHRONIC OBSTRUCTIVE PULMONARY DISEASE 10/08/2012 CARLOS TIRE GROOVER, HOSEA R 496 CHRONIC OBSTRUCTIVE PULMONARY DISEASE 10/08/2012 CARLOS TIRE GROOVER, HOSEA R 496 CHRONIC OBSTRUCTIVE PULMONARY DISEASE 10/08/2012 LUCIANO CONRAD MD 496 CHRONIC OBSTRUCTIVE PULMONARY DISEASE 10/08/2012 CARLOS TIRE GROOVER, HOSEA R 496 CHRONIC OBSTRUCTIVE PULMONARY DISEASE 10/08/2012 CARLOS TIRE GROOVER, HOSEA R 496 CHRONIC OBSTRUCTIVE PULMONARY DISEASE [...] IN JOINT INVOLVING LOWER LEG 12/17/2012 CARLOS TIRE GROOVER, HOSEA R 719.46 PAIN IN JOINT INVOLVING LOWER LEG 12/17/2012 CARLOS TIRE GROOVER, HOSEA R 719.46 PAIN IN JOINT INVOLVING LOWER LEG 12/17/2012 CARLOS TIRE GROOVER, HOSEA R 719.46 PAIN IN JOINT INVOLVING LOWER LEG 12/17/2012 TATY PURVIS APRN 719.46 PAIN IN JOINT INVOLVING LOWER LEG 12/17/2012 CARLOS TIRE GROOVER, HOSEA R 719.46 PAIN IN JOINT INVOLVING LOWER LEG 12/17/2012 CARLOS RODRIGUEZN, HOSEA R 719.46 PAIN IN JOINT INVOLVING LOWER LEG 12/17/2012 CARLOS RODRIGUEZN, HOSEA R 719.46 PAIN IN JOINT INVOLVING LOWER LEG 12/17/2012 SUKHDEEP LIMA DO 719.46 PAIN IN JOINT INVOLVING LOWER LEG 12/17/2012 LELA MAGDLAENOJUDAH Peterson 719.46 PAIN IN JOINT INVOLVING LOWER LEG 12/17/2012 CARLOS TIRE GROOVER, HOSEA R 719.46 PAIN IN JOINT INVOLVING LOWER LEG 12/17/2012 CARLOS TIRE GROOVER, HOSEA R 719.46 PAIN IN JOINT INVOLVING LOWER LEG 12/17/2012 CARLOS RODRIGUEZN, HOSEA R 719.46 PAIN IN JOINT INVOLVING LOWER LEG 12/17/2012 LUCIANO CONRAD MD 719.46 PAIN IN JOINT INVOLVING LOWER LEG 12/17/2012 CARLOS TIRE GROOVER, HOSEA R 719.46 PAIN IN JOINT INVOLVING LOWER LEG 12/17/2012 CARLOS RODRIGUEZN, HOSEA R 719.46 PAIN IN JOINT INVOLVING LOWER LEG 12/21/2012 LOYD NYE MD 787.91 DIARRHEA 12/21/2012 LOYD NYE MD 787.91 DIARRHEA 12/21/2012 LOYD NYE MD 787.91 DIARRHEA 12/21/2012 LUCIANO CONRAD MD 787.91 DIARRHEA 12/21/2012 LUCIANO CONRAD MD 787.91 DIARRHEA 12/21/2012 LUCIANO CONRAD MD 787.91 DIARRHEA 12/21/2012 PRAKASH ZHAO APRN S 787.91 DIARRHEA 12/21/2012 CARLOS TIRE GROOVER, HOSEA R 787.91 DIARRHEA 12/21/2012 CARLOS TIRE GROOVER, HOSEA R 787.91 DIARRHEA 12/21/2012 CARLOS TIRE GROOVER, HOSEA R 787.91 DIARRHEA 12/21/2012 YANIV ODELL, TATY Burnette 787.91 DIARRHEA 12/21/2012 CARLOS TIRE GROOVER, HOSEA R 787.91 DIARRHEA 12/21/2012 CARLOS TIRE GROOVER, HOSEA R 787.91 DIARRHEA 12/21/2012 CARLOS TIRE GROOVER, HOSEA R 787.91 DIARRHEA 12/21/2012 SUKHDEEP LIMA DO K 787.91 DIARRHEA 12/21/2012 LELA MAGDALENOF, JUDAH W 787.91 DIARRHEA 12/21/2012 CARLOS TIRE GROOVER, HOSEA R 787.91 DIARRHEA 12/21/2012 CARLOS TIRE GROOVER, HOSEA R 787.91 DIARRHEA 12/21/2012 CARLOS TIRE GROOVER, HOSEA R 787.91 DIARRHEA 12/21/2012 LUCIANO CONRAD MD 787.91 DIARRHEA 12/21/2012 CARLOS TIRE GROOVER, HOSEA R 787.91 DIARRHEA 12/21/2012 CARLOS TIRE GROOVER, HOSEA R 787.91 DIARRHEA 02/11/2013 LOYD NYE MD 787.01 NAUSEA WITH VOMITING 02/11/2013 LOYD NYE MD 787.01 NAUSEA WITH VOMITING 02/11/2013 LOYD NYE MD 787.01 NAUSEA WITH VOMITING 02/11/2013 LUCIANO CONRAD MD 787.01 NAUSEA WITH VOMITING 02/11/2013 LUCIANO CONRAD MD 787.01 NAUSEA WITH VOMITING 02/11/2013 LUCIANO CONRAD MD 787.01 NAUSEA WITH VOMITING 02/11/2013 PRAKASH ZHAO APRN 787.01 NAUSEA WITH VOMITING 02/11/2013 CARLOS ODELL, HOSEA R 787.01 NAUSEA WITH VOMITING 02/11/2013 CARLOS TIRE GROOVER, HOSEA R 787.01 NAUSEA WITH VOMITING 02/11/2013 CARLOS ODELL, HOSEA R 787.01 NAUSEA WITH VOMITING 02/11/2013 LOIS PURVIS APRNNYGama Burnette 787.01 NAUSEA WITH VOMITING 02/11/2013 CARLOS ODELL, HOSEA R 787.01 NAUSEA WITH VOMITING 02/11/2013 CARLOS ODELL, HOSEA R 787.01 NAUSEA WITH VOMITING 02/11/2013 CARLOS ODELL, HOSEA R 787.01 NAUSEA WITH VOMITING 02/11/2013 JANIE NICHOLAS, SUKHDEEP Prasad 787.01 NAUSEA WITH VOMITING 02/11/2013 LELA MAGDALENOJUDAH Peterson 787.01 NAUSEA WITH VOMITING 02/11/2013 CARLOS ODELL, HOSEA R 787.01 NAUSEA WITH VOMITING 02/11/2013 CARLOS ODELL, HOSEA R 787.01 NAUSEA WITH VOMITING 02/11/2013 CARLOS ODELL, HOSEA R 787.01 NAUSEA WITH VOMITING 02/11/2013 LUCIANO CONRAD MD 787.01 NAUSEA WITH VOMITING 02/11/2013 CARLOS [...] MOISE MD Ot 414.01 CORONARY ATHEROSCLEROSIS OF [place] CORON 03/03/2013 GAGAN MOISE MD Ot 424.0 MITRAL VALVE DISORDER 03/03/2013 GAGAN MOISE MD Ot 496 CHR AIRWAY OBSTRUCT NEC 03/03/2013 GAGAN MOISE MD Ot V12.54 PERSONAL HX OF TIA, CEREBRAL INFARCTION 03/03/2013 GAGAN MOISE MD Ot V58.67 LONG-TERM (CURRENT) USE OF INSULIN 03/03/2013 GAGAN MOISE MD Ot V58.69 OTH MED,LT,CURRENT USE 03/18/2013 LOYD [...] LUCIANO CONRAD MD 799.2 anxiety 03/18/2013 PAVEL TIRE GROOVER, PRAKASH S 414.00 CORONARY ARTERY DISEASE 03/18/2013 PAVEL TIRE GROOVER, PRAKASH S 799.2 anxiety 03/18/2013 CARLOS TIRE GROOVER, HOSEA R 414.00 CORONARY ARTERY DISEASE 03/18/2013 CARLOS TIRE GROOVER, HOSEA R 799.2 anxiety 03/18/2013 CARLOS TIRE GROOVER, HOSEA R 414.00 CORONARY ARTERY DISEASE 03/18/2013 CARLOS TIRE GROOVER, HOSEA R 799.2 anxiety 03/18/2013 CARLOS TIRE GROOVER, HOSEA R 414.00 CORONARY ARTERY DISEASE 03/18/2013 CARLOS TIRE GROOVER, HOSEA R 799.2 anxiety 03/18/2013 MADL TIRE GROOVER, TATY L 414.00 CORONARY ARTERY DISEASE 03/18/2013 MADL TIRE GROOVER, TATY L 799.2 anxiety 03/18/2013 CARLOS TIRE GROOVER, HOSEA R 414.00 CORONARY ARTERY DISEASE 03/18/2013 CAROLS TIRE GROOVER, HOSEA R 799.2 anxiety 03/18/2013 CARLOS TIRE GROOVER, HOSEA R 414.00 CORONARY ARTERY DISEASE 03/18/2013 CARLOS TIRE GROOVER, HOSEA R 799.2 anxiety 03/18/2013 CARLOS TIRE GROOVER, HOSEA R 414.00 CORONARY ARTERY DISEASE 03/18/2013 CARLOS TIRE GROOVER, HOSEA R 799.2 anxiety 03/18/2013 LIMA DO, SUKHDEEP K 414.00 CORONARY ARTERY DISEASE 03/18/2013 LIMA DO, SUKHDEEP K 799.2 anxiety 03/18/2013 JUDAH OWEN 414.00 CORONARY ARTERY DISEASE 03/18/2013 JUDAH OWEN 799.2 anxiety 03/18/2013 CARLOS TIRE GROOVER, HOSEA R 414.00 CORONARY ARTERY DISEASE 03/18/2013 CARLOS TIRE GROOVER, HOSEA R 799.2 anxiety 03/18/2013 CARLOS TIRE GROOVER, HOSEA R 414.00 CORONARY ARTERY DISEASE 03/18/2013 CARLOS TIRE GROOVER, HOSEA R 799.2 anxiety 03/18/2013 CARLOS TIRE GROOVER, HOSEA R 414.00 CORONARY ARTERY DISEASE 03/18/2013 CARLOS TIRE GROOVER, HOSEA R 799.2 anxiety 03/18/2013 LUCIANO CONRAD MD 414.00 CORONARY ARTERY DISEASE 03/18/2013 LUCIANO CONRAD MD 799.2 anxiety 03/18/2013 CARLOS TIRE GROOVER, HOSEA R 414.00 CORONARY ARTERY DISEASE 03/18/2013 CARLOS TIRE GROOVER, HOSEA R 799.2 anxiety 03/18/2013 CARLOS TIRE GROOVER, HOSEA R 414.00 CORONARY ARTERY DISEASE 03/18/2013 CARLOS TIRE GROOVER, HOSEA R 799.2 anxiety 04/01/2013 LOYD NYE [...] MD 729.5 PAIN IN LIMB 04/01/2013 PAVEL TIRE GROOVER, PRAKASH S 272.4 HYPERLIPIDEMIA 04/01/2013 PAVEL TIRE GROOVER, PRAKASH S 300.00 ANXIETY UNSPEC 04/01/2013 PAVEL TIRE GROOVER, PRAKASH S 401.9 HYPERTENSION, UNSPECIFIED ESSENTIAL 04/01/2013 PAVEL TIRE GROOVER, PRAKASH S 729.5 PAIN IN LIMB 04/01/2013 CARLOS TIRE GROOVER, HOSEA R 272.4 HYPERLIPIDEMIA 04/01/2013 CARLOS TIRE GROOVER, HOSEA R 300.00 ANXIETY UNSPEC 04/01/2013 CARLOS TIRE GROOVER, HOSEA R 401.9 HYPERTENSION, UNSPECIFIED ESSENTIAL 04/01/2013 CARLOS TIRE GROOVER, HOSEA R 729.5 PAIN IN LIMB 04/01/2013 CARLOS TIRE GROOVER, HOSEA R 272.4 HYPERLIPIDEMIA 04/01/2013 CARLOS TIRE GROOVER, HOSEA R 300.00 ANXIETY UNSPEC 04/01/2013 CARLOS TIRE GROOVER, HOSEA R 401.9 HYPERTENSION, UNSPECIFIED ESSENTIAL 04/01/2013 CARLOS TIRE GROOVER, HOSEA R 729.5 PAIN IN LIMB 04/01/2013 CARLOS TIRE GROOVER, HOSEA R 272.4 HYPERLIPIDEMIA 04/01/2013 CARLOS TIRE GROOVER, HOSEA R 300.00 ANXIETY UNSPEC 04/01/2013 CARLOS TIRE GROOVER, HOSEA R 401.9 HYPERTENSION, UNSPECIFIED ESSENTIAL 04/01/2013 CARLOS TIRE GROOVER, HOSEA R 729.5 PAIN IN LIMB 04/01/2013 MADL TIRE GROOVER, TATY L 272.4 HYPERLIPIDEMIA 04/01/2013 MADL TIRE GROOVER, TATY L 300.00 ANXIETY UNSPEC 04/01/2013 MADL TIRE GROOVER, TATY L 401.9 HYPERTENSION, UNSPECIFIED ESSENTIAL 04/01/2013 MADL TIRE GROOVER, TATY L 729.5 PAIN IN LIMB 04/01/2013 CARLOS TIRE GROOVER, HOSEA R 272.4 HYPERLIPIDEMIA 04/01/2013 CARLOS TIRE GROOVER, HOSEA R 300.00 ANXIETY UNSPEC 04/01/2013 CARLOS TIRE GROOVER, HOSEA R 401.9 HYPERTENSION, UNSPECIFIED ESSENTIAL 04/01/2013 CARLOS TIRE GROOVER, HOSEA R 729.5 PAIN IN LIMB 04/01/2013 CARLOS TIRE GROOVER, HOSEA R 272.4 HYPERLIPIDEMIA 04/01/2013 CARLOS TIRE GROOVER, HOSEA R 300.00 ANXIETY UNSPEC 04/01/2013 CARLOS TIRE GROOVER, HOSEA R 401.9 HYPERTENSION, UNSPECIFIED ESSENTIAL 04/01/2013 CARLOS TIRE GROOVER, HOSEA R 729.5 PAIN IN LIMB 04/01/2013 CARLOS TIRE GROOVER, HOSEA R 272.4 HYPERLIPIDEMIA 04/01/2013 CARLOS TIRE GROOVER, HOSEA R 300.00 ANXIETY UNSPEC 04/01/2013 CARLOS TIRE GROOVER, HOSEA R 401.9 HYPERTENSION, UNSPECIFIED ESSENTIAL 04/01/2013 CARLOS TIRE GROOVER, HOSEA R 729.5 PAIN IN LIMB 04/01/2013 [...] W 729.5 PAIN IN LIMB 04/01/2013 CARLOS TIRE GROOVER, HOSEA R 272.4 HYPERLIPIDEMIA 04/01/2013 CARLOS TIRE GROOVER, HOSEA R 300.00 ANXIETY UNSPEC 04/01/2013 CARLOS TIRE GROOVER, HOSEA R 401.9 HYPERTENSION, UNSPECIFIED ESSENTIAL 04/01/2013 CARLOS TIRE GROOVER, HOSEA R 729.5 PAIN IN LIMB 04/01/2013 CARLOS TIRE GROOVER, HOSEA R 272.4 HYPERLIPIDEMIA 04/01/2013 CARLOS TIRE GROOVER, HOSEA R 300.00 ANXIETY UNSPEC 04/01/2013 CARLOS TIRE GROOVER, HOSEA R 401.9 HYPERTENSION, UNSPECIFIED ESSENTIAL 04/01/2013 CARLOS TIRE GROOVER, HOSEA R 729.5 PAIN IN LIMB 04/01/2013 CARLOS TIRE GROOVER, HOSEA R 272.4 HYPERLIPIDEMIA 04/01/2013 CARLOS TIRE GROOVER, HOSEA R 300.00 ANXIETY UNSPEC 04/01/2013 CARLOS TIRE GROOVER, HOSEA R 401.9 HYPERTENSION, UNSPECIFIED ESSENTIAL 04/01/2013 CARLOS TIRE GROOVER, HOSEA R 729.5 PAIN IN LIMB 04/01/2013 LUCIANO CONRAD MD 272.4 HYPERLIPIDEMIA 04/01/2013 LUCIANO CONARD MD 300.00 ANXIETY UNSPEC 04/01/2013 LUCIANO CONRAD MD 401.9 HYPERTENSION, UNSPECIFIED ESSENTIAL 04/01/2013 LUCIANO CONRAD MD 729.5 PAIN IN LIMB 04/01/2013 CARLOS TIRE GROOVER, HOSEA R 272.4 HYPERLIPIDEMIA 04/01/2013 CARLOS TIRE GROOVER, HOSEA R 300.00 ANXIETY UNSPEC 04/01/2013 CARLOS TIRE GROOVER, HOSEA R 401.9 HYPERTENSION, UNSPECIFIED ESSENTIAL 04/01/2013 CARLOS TIRE GROOVER, HOSEA R 729.5 PAIN IN LIMB 04/01/2013 CARLOS TIRE GROOVER, HOSEA R 272.4 HYPERLIPIDEMIA 04/01/2013 CARLOS TIRE GROOVER, HOSEA R 300.00 ANXIETY UNSPEC 04/01/2013 CARLOS TIRE GROOVER, HOSEA R 401.9 HYPERTENSION, UNSPECIFIED ESSENTIAL 04/01/2013 CARLOS TIRE GROOVER, HOSEA R 729.5 PAIN IN LIMB 04/26/2013 NAT GARCIA, CHIARA Gordillo Ot 486 PNEUMONIA, ORGANISM NOS 04/26/2013 NAT GARCIA, CHIARA Gordillo Ot 780.60 FEVER, UNSPECIFIED 04/29/2013 LUCIANO CONRAD MD 486 PNEUMONIA ORGANISM UNSPECIFIED 04/29/2013 LUCIANO CONRAD MD 486 PNEUMONIA ORGANISM UNSPECIFIED 04/29/2013 PAVEL TIRE GROOVER, PRAKASH S 486 PNEUMONIA ORGANISM UNSPECIFIED 04/29/2013 CARLOS TIRE GROOVER, HOSEA R 486 PNEUMONIA ORGANISM UNSPECIFIED 04/29/2013 CARLOS TIRE GROOVER, HOSEA R 486 PNEUMONIA ORGANISM UNSPECIFIED 04/29/2013 CARLOS TIRE GROOVER, HOSEA R 486 PNEUMONIA ORGANISM UNSPECIFIED 04/29/2013 MADL TIRE GROOVER, TATY L 486 PNEUMONIA ORGANISM UNSPECIFIED 04/29/2013 CARLOS TIRE GROOVER, HOSEA R 486 PNEUMONIA ORGANISM UNSPECIFIED 04/29/2013 CARLOS TIRE GROOVER, HOSEA R 486 PNEUMONIA ORGANISM UNSPECIFIED 04/29/2013 CARLOS TIRE GROOVER, HOSEA R 486 PNEUMONIA ORGANISM UNSPECIFIED 04/29/2013 SUKHDEEP LIMA DO K 486 PNEUMONIA ORGANISM UNSPECIFIED 04/29/2013 LELA PEDRAZA, JUDAH Kuo 486 PNEUMONIA ORGANISM UNSPECIFIED 04/29/2013 CARLOS TIRE GROOVER, HOSEA R 486 PNEUMONIA ORGANISM UNSPECIFIED 04/29/2013 CARLOS TIRE GROOVER, HOSEA R 486 PNEUMONIA ORGANISM UNSPECIFIED 04/29/2013 CARLOS TIRE GROOVER, HOSEA R 486 PNEUMONIA ORGANISM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) DRUG THERAPY 04/16/2016 MADL, TATY L AQUATICS COORDINATOR Ot I65.23 OCCLUSION AND STENOSIS OF [place] 04/16/2016 MADL, TATY L AQUATICS COORDINATOR Ot I70.8 ATHEROSCLEROSIS OF OTHER ARTERIES 04/16/2016 MADL, TATY L AQUATICS COORDINATOR Ot I65.23 OCCLUSION AND STENOSIS OF [place] 04/16/2016 MADL, TATY L AQUATICS COORDINATOR Ot I70.8 ATHEROSCLEROSIS OF OTHER ARTERIES 04/16/2016 MADL, TATY L AQUATICS COORDINATOR Ot I65.23 OCCLUSION AND STENOSIS OF [place] 04/16/2016 MADL, TATY L AQUATICS COORDINATOR Ot I70.8 ATHEROSCLEROSIS OF OTHER ARTERIES 04/30/2016 MADL, TATY L AQUATICS COORDINATOR Ot I65.23 OCCLUSION AND STENOSIS OF [place] 04/30/2016 MADL, TATY L AQUATICS COORDINATOR Ot I70.8 ATHEROSCLEROSIS OF OTHER ARTERIES 05/24/2016 GHULAM MCKEON APRN Ot R05 COUGH 05/24/2016 GHULAM MCKEON TIRE GROOVER Ot Z53.21 PROC/TRTMT NOT CRD OUT D/T PT LV BEF SEE 05/27/2016 GHULAM MCKEON TIRE GROOVER Ot R05 COUGH 05/27/2016 GHULAM MCKEON TIRE GROOVER Ot Z53.21 PROC/TRTMT NOT CRD OUT D/T [...] DISEASE WITH HEART FA 05/31/2016 GAGAN MOISE MD, Ot I21.4 NON-ST ELEVATION (NSTEMI) MYOCARDIAL INF 05/31/2016 GAGAN MOISE MD, Ot I25.10 ATHSCL HEART DISEASE OF [place] CORONARY 05/31/2016 GAGAN MOISE MD, Ot I50.31 ACUTE DIASTOLIC (CONGESTIVE) HEART FAILU 05/31/2016 GAGAN MOISE MD, Ot I69.354 HEMIPLGA FOLLOWING CEREBRAL INFRC AFFECT 05/31/2016 GAGAN MOISE MD, Ot 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 05/31/2016 GAGAN MOISE MD Ot Z95.5 PRESENCE OF CORONARY ANGIOPLASTY IMPLANT 07/08/2016 MADL, TATY L AQUATICS COORDINATOR Ot R07.81 PLEURODYNIA 07/10/2016 MADL, TATY L AQUATICS COORDINATOR Ot R07.81 PLEURODYNIA 07/21/2016 MADL, TATY L AQUATICS COORDINATOR Ot R07.81 PLEURODYNIA 11/28/2016 YIMI CORTES MD Ot E11.9 TYPE 2 DIABETES MELLITUS WITHOUT COMPLIC 11/28/2016 YIMI CORTES MD Ot F17.210 NICOTINE DEPENDENCE, CIGARETTES, UNCOMPL 11/28/2016 YIMI CORTES MD Ot F32.9 MAJOR DEPRESSIVE DISORDER, SINGLE EPISOD 11/28/2016 YIMI CORTES MD Ot F41.9 ANXIETY DISORDER, UNSPECIFIED 11/28/2016 YIMI CORTES MD Ot G40.909 EPILEPSY, UNSP, NOT INTRACTABLE, WITHOUT 11/28/2016 YIMI CORTES MD Ot I25.10 ATHSCL HEART DISEASE OF [place] CORONARY 11/28/2016 YIMI CORTES MD, Ot J44.9 CHRONIC OBSTRUCTIVE PULMONARY DISEASE, U 11/28/2016 YIMI CORTES MD Ot M19.90 UNSPECIFIED OSTEOARTHRITIS, UNSPECIFIED 11/28/2016 YIMI CORTES MD Ot N39.0 URINARY TRACT INFECTION, SITE NOT SPECIF 11/28/2016 YIMI CORTES MD Ot R53.1 WEAKNESS 11/28/2016 YIMI CORTES MD Ot 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 11/28/2016 YIMI CORTES MD Ot Z79.82 PENITENTIARY (CURRENT) USE OF ASPIRIN 11/28/2016 YIMI CORTES MD Ot Z86.73 PRSNL HX OF TIA (TIA), AND CEREB INFRC W 11/28/2016 YIMI CORTES MD Ot Z90.711 ACQUIRED ABSENCE OF UTERUS WITH REMAININ 11/28/2016 GAGAN MOISE MD Ot 250.00 DIAB [...] OBSTRUCTIVE PULMONARY DISEASE, U 11/28/2016 TATY PURVIS AQUATICS COORDINATOR Ot R10.84 GENERALIZED ABDOMINAL PAIN 11/28/2016 TATY PURVIS AQUATICS COORDINATOR Ot I65.23 OCCLUSION AND STENOSIS OF [place] 11/28/2016 TATY PURVIS AQUATICS COORDINATOR Ot I70.8 ATHEROSCLEROSIS OF OTHER ARTERIES 11/28/2016 TATY PURVIS AQUATICS COORDINATOR Ot R93.8 ABNORMAL FINDINGS ON DIAGNOSTIC IMAGING 11/28/2016 TATY PURVIS AQUATICS COORDINATOR Ot R07.81 PLEURODYNIA 11/28/2016 GAGAN MOISE MD [...] OBSTRUCTIVE PULMONARY DISEASE, U 11/28/2016 TATY PURVIS AQUATICS COORDINATOR Ot R10.84 GENERALIZED ABDOMINAL PAIN 11/28/2016 TATY PURVIS AQUATICS COORDINATOR Ot I65.23 OCCLUSION AND STENOSIS OF [place] 11/28/2016 MADLTATY AQUATICS COORDINATOR Ot I70.8 ATHEROSCLEROSIS OF OTHER ARTERIES 11/28/2016 TATY PURVIS AQUATICS COORDINATOR Ot R93.8 ABNORMAL FINDINGS ON DIAGNOSTIC IMAGING 11/28/2016 TATY PURVIS AQUATICS COORDINATOR Ot R07.81 PLEURODYNIA Procedures Code Description [place] [address] INFLUENZA A & B (IN-HOUSE) 06/23/2012 42911 PULMONARY FUNCTION TEST (IN- HOUSE) 09/29/2012 31395 PULMONARY FUNCTION TEST (IN- HOUSE) 10/08/2012 51166 BRONCHODILATION PRE/POST 10/08/2012 96877 RESPIRATORY FLOW VOLUME LOOP 10/08/2012 23085 PULMONARY EDUCATION 10/08/2012 38034 XRAY CHEST 2 VIEW 10/12/2012 87612 A1C (IN-HOUSE) 10/12/2012 90449 MICRO ALBUMIN-IN HOUSE 10/12/2012 80200 THERAPUTIC INJ SQ/IM 10/12/2012 J2930 SOLUMEDROL INJ 10/12/2012 52683 MICROALBUMIN 10/13/2012 27078 ROUTINE VENIPUNCTURE 02/11/2013 81951 A1C (IN-HOUSE) 02/11/2013 44195 CBC 02/11/2013 96567 LIPID PANEL 02/11/2013 23713 CMP 02/11/2013 0233803 GFR CALC (RESULT ONLY) 02/11/2013 57210 CULTURE SPUTUM 02/13/2013 31606 SANDRITA 04/01/2013 01880 A1C (IN-HOUSE) 04/01/2013 Cardiolog Gagan Moise 04/07/2013 77790 OXIMETRY 04/29/2013 48451 ROUTINE VENIPUNCTURE 05/06/2013 46922 CBC 05/06/2013 6515418 GFR CALC (RESULT ONLY) 05/06/2013 04558 CMP 05/06/2013 23663 XRAY CHEST 2 VIEW 05/09/2013 10324 ROUTINE VENIPUNCTURE 06/30/2013 46439 UA LONG DIP 06/30/2013 27080 CBC 06/30/2013 99279 MYCOPLASMA ANTIBODY 07/01/2013 49595 CULTURE WOUND (AEROBIC) 10/06/2013 85361 ROUTINE VENIPUNCTURE 10/12/2013 31277 BMP 10/12/2013 90227 CPK 10/12/2013 92327 CBC 10/12/2013 52256 A1C (IN-HOUSE) 10/12/2013 91245 MICRO ALBUMIN-IN HOUSE 10/18/2013 69552 MICROALBUMIN 10/19/2013 90107 ROUTINE VENIPUNCTURE 11/30/2013 35314 UA W/ CULTURE IF INDICATED 11/30/2013 01423 CBC 11/30/2013 9196333 GFR CALC (RESULT ONLY) 11/30/2013 92991 CMP 11/30/2013 98115 LIPASE 11/30/2013 26180 MYCOPLASMA ANTIBODY 12/01/2013 27825 ROUTINE VENIPUNCTURE 12/08/2013 08864 UA W/ CULTURE IF INDICATED 12/08/2013 06996 CBC 12/08/2013 33170 LIPASE 12/08/2013 97952 CULTURE STOOL 04/14/2014 75965 PSYCH DIAGNOSTIC EVALUATION 04/14/2014 82249 CLOSTRIDIUM (C-DIFF) 04/15/2014 5495832 STOOL FOR BACTERIAL PATHOGENS 04/16/2014 31847 XRAY CERVICAL SPINE, 2 OR 3 VIEWS 04/21/2014 97549 XRAY KNEE RIGHT 1 OR 2 VIEWS 04/21/2014 40192 A1C (IN-HOUSE) 05/09/2014 20117 OXIMETRY 05/29/2014 Results Test Result Range Complete blood count (CBC) with automated white blood cell (WBC) differential - 12/21/15 16:53 Blood leukocytes automated count (number/volume) 6.8 10*3/uL 4.3-11.0 Blood erythrocytes automated count (number/volume) 4.87 10*6/uL 4.35-5.85 Venous blood hemoglobin measurement (mass/volume) 14.0 [...] Automated blood platelet mean volume measurement 10.3 [foz_us] 7.4-10.4 Automated blood neutrophils/100 leukocytes 57 % [...] Serum or plasma sodium measurement (moles/volume) 139 mmol/L 135-145 Serum or plasma potassium measurement (moles/volume) 3.0 mmol/L 3.6-5.0 Serum or plasma chloride measurement (moles/volume) 99 mmol/L 98-107 Carbon dioxide 31 mmol/L 21-32 Serum or plasma anion gap determination (moles/volume) 9 mmol/L 5-14 Serum or plasma urea nitrogen measurement (mass/volume) 11 mg/dL 7-18 Serum or plasma creatinine measurement (mass/volume) 1.00 mg/dL 0.60-1.30 Serum or plasma urea nitrogen/creatinine mass [...] Urine pH measurement by test strip 5 5-9 Specific gravity of urine by test strip 1.015 1.016- 1.022 Urine protein assay by test strip, semi-quantitative [...] 13:30 Blood leukocytes automated count (number/volume) 8.0 10*3/uL 4.3-11.0 Blood erythrocytes automated count (number/volume) 4.91 10*6/uL 4.35-5.85 Venous blood hemoglobin measurement (mass/volume) 14.4 [...] Automated blood platelet mean volume measurement 11.1 [foz_us] 7.4-10.4 Automated blood neutrophils/100 leukocytes 62 % [...] Serum or plasma sodium measurement (moles/volume) 137 mmol/L 135-145 Serum or plasma potassium measurement (moles/volume) 2.5 mmol/L 3.6-5.0 Serum or plasma chloride measurement (moles/volume) 95 mmol/L 98-107 Carbon dioxide 29 mmol/L 21-32 Serum or plasma anion gap determination (moles/volume) 13 mmol/L 5-14 Serum or plasma urea nitrogen measurement (mass/volume) 9 mg/dL 7-18 Serum or plasma creatinine measurement (mass/volume) 0.92 mg/dL 0.60-1.30 Serum or plasma urea nitrogen/creatinine mass [...] 10:30 Blood leukocytes automated count (number/volume) 7.9 10*3/uL 4.3-11.0 Blood erythrocytes automated count (number/volume) 4.74 10*6/uL 4.35-5.85 Venous blood hemoglobin measurement (mass/volume) 14.0 [...] Automated blood platelet mean volume measurement 10.7 [foz_us] 7.4-10.4 Automated blood neutrophils/100 leukocytes 56 % [...] Serum or plasma sodium measurement (moles/volume) 135 mmol/L 135-145 Serum or plasma potassium measurement (moles/volume) 4.5 mmol/L 3.6-5.0 Serum or plasma chloride measurement (moles/volume) 102 mmol/L 98-107 Carbon dioxide 24 mmol/L 21-32 Serum or plasma anion gap determination (moles/volume) 9 mmol/L 5-14 Serum or plasma urea nitrogen measurement (mass/volume) 14 mg/dL 7-18 Serum or plasma creatinine measurement (mass/volume) 0.99 mg/dL 0.60-1.30 Serum or plasma urea nitrogen/creatinine mass [...] 18:03 Blood leukocytes automated count (number/volume) 5.3 10*3/uL 4.3-11.0 Blood erythrocytes automated count (number/volume) 3.62 10*6/uL 4.35-5.85 Venous blood hemoglobin measurement (mass/volume) 10.2 [...] Automated blood platelet mean volume measurement 11.2 [foz_us] 7.4-10.4 Automated blood neutrophils/100 leukocytes 62 % [...] Serum or plasma sodium measurement (moles/volume) 134 mmol/L 135-145 Serum or plasma potassium measurement (moles/volume) 3.3 mmol/L 3.6-5.0 Serum or plasma chloride measurement (moles/volume) 95 mmol/L 98-107 Carbon dioxide 31 mmol/L 21-32 Serum or plasma anion gap determination (moles/volume) 8 mmol/L 5-14 Serum or plasma urea nitrogen measurement (mass/volume) 13 mg/dL 7-18 Serum or plasma creatinine measurement (mass/volume) 0.93 mg/dL 0.60-1.30 Serum or plasma urea nitrogen/creatinine mass ratio 14 NRG Serum or plasma creatinine measurement with calculation of estimated glomerular filtration rate > NRG Serum or plasma glucose measurement (mass/volume) 205 mg/dL 70-105 Serum or plasma calcium measurement (mass/volume) 7.8 mg/dL 8.5-10.1 Serum or plasma troponin i.cardiac measurement (mass/volume) - 05/30/16 18:03 Serum or plasma troponin i.cardiac measurement (mass/volume) 1.06 ng /mL <0.30 Bacterial blood culture - 05/30/16 18:03 Bacterial blood culture NG NRG Bacterial blood culture - 05/30/16 18:19 Bacterial blood culture NG NRG Complete blood count (CBC) with automated white blood cell (WBC) differential - 05/31/16 03:54 Blood leukocytes automated count (number/volume) 5.5 10*3/uL 4.3-11.0 Blood erythrocytes automated count (number/volume) 3.39 10*6/uL 4.35-5.85 Venous blood hemoglobin measurement (mass/volume) 9.4 [...] Automated blood platelet mean volume measurement 11.8 [foz_us] 7.4-10.4 Automated blood neutrophils/100 leukocytes 48 % [...] Serum or plasma sodium measurement (moles/volume) 141 mmol/L 135-145 Serum or plasma potassium measurement (moles/volume) 3.1 mmol/L 3.6-5.0 Serum or plasma chloride measurement (moles/volume) 100 mmol/L 98-107 Carbon dioxide 30 mmol/L 21-32 Serum or plasma anion gap determination (moles/volume) 11 mmol/L 5-14 Serum or plasma urea nitrogen measurement (mass/volume) 12 mg/dL 7-18 Serum or plasma creatinine measurement (mass/volume) 0.85 mg/dL 0.60-1.30 Serum or plasma urea nitrogen/creatinine mass [...] Serum or plasma phosphate measurement (mass/volume) 4.1 mg/dL 2.3-4.7 Magnesium - 05/31/16 03:54 Magnesium 1.6 mg/dL 1.8-2.4 Serum or plasma troponin i.cardiac measurement (mass/volume) - 05/31/16 03:54 Serum or plasma troponin i.cardiac measurement (mass/volume) 1.07 ng /mL <0.30 Serum or plasma lithium measurement (moles/volume) - 05/31/16 03:54 BNP level 950.7 pg/mL <100.0 Complete blood count (CBC) with automated white blood cell (WBC) differential - 11/27/16 21:50 Blood leukocytes automated count (number/volume) 9.9 10*3/uL 4.3-11.0 Blood erythrocytes automated count (number/volume) 3.84 10*6/uL 4.35-5.85 Venous blood hemoglobin measurement (mass/volume) 11.0 [...] Automated blood platelet mean volume measurement 11.6 [foz_us] 7.4-10.4 Automated blood neutrophils/100 leukocytes 78 % [...] Serum or plasma sodium measurement (moles/volume) 136 mmol/L 135-145 Serum or plasma potassium measurement (moles/volume) 3.1 mmol/L 3.6-5.0 Serum or plasma chloride measurement (moles/volume) 101 mmol/L 98-107 Carbon dioxide 24 mmol/L 21-32 Serum or plasma anion gap determination (moles/volume) 11 mmol/L 5-14 Serum or plasma urea nitrogen measurement (mass/volume) 12 mg/dL 7-18 Serum or plasma creatinine measurement (mass/volume) 1.04 mg/dL 0.60-1.30 Serum or plasma urea nitrogen/creatinine mass [...] or plasma troponin i.cardiac measurement (mass/volume) < ng/ mL <0.30 Complete urinalysis with reflex to culture - 11/27/16 22:36 Urine color determination YELLOW NRG Urine clarity determination SLIGHTLY CLOUDY NRG Urine pH measurement by test strip 5 5-9 Specific gravity of urine by test strip 1.015 1.016- 1.022 Urine protein assay by test strip, semi-quantitative [...] culture - 11/27/16 22:36 Bacterial urine culture [id number] NRG COLONY COUNT >100,000/ML NRG FTX;REPORTABLE SENSITIVITY REPORTED 11/29/16 9:00 NRG Bacterial susceptibility panel - 11/27/16 22:36 Gentamicin susceptibility test by minimum inhibitory concentration < = NRG Trimethoprim/sulfamethoxazole susceptibility test by minimum inhibitoryconcentration <= NRG Ampicillin susceptibility test by minimum inhibitory concentration 4 NRG Tobramycin susceptibility test by minimum inhibitory concentration < = NRG Cefazolin susceptibility test by minimum inhibitory concentration < = NRG Ceftriaxone susceptibility test by minimum inhibitory concentration <= NRG Ampicillin/sulbactam susceptibility test by minimum inhibitory concentration <= NRG Piperacillin/tazobactam susceptibility test by minimum inhibitory concentration <= NRG Ciprofloxacin susceptibility test by minimum inhibitory concentration <= NRG Meropenem susceptibility test by minimum inhibitory concentration < = NRG Nitrofurantoin susceptibility test by minimum inhibitory concentration <= NRG Aztreonam susceptibility test by minimum inhibitory concentration < = NRG Extended spectrum beta lactamase (ESBL) producing bacteria susceptibility test by minimum inhibitory concentration - NRG Encounters ACCT No. Visit Date/Time Discharge Status Pt. Type Provider Facility Loc./Unit Complaint [id number] 08/15/2014 13:31:00 08/15/2014 23:59:59 CLS Outpatient HOSEA GONZALEZ APRN [id number] 06/13/2014 14:58:00 06/13/2014 23:59:59 CLS Outpatient HOSEA GONZALEZ APRN [id number] 05/29/2014 10:08:00 05/29/2014 23:59:59 CLS Outpatient LUCIANO CONRAD MD [id number] 05/24/2014 10:39:00 05/24/2014 23:59:59 CLS Outpatient HOSEA GONZALEZ APRN [id number] 05/09/2014 10:27:00 05/09/2014 23:59:59 CLS Outpatient HOSEA GONZALEZ APRN [id number] 04/21/2014 11:18:00 04/21/2014 23:59:59 CLS Outpatient HOSEA GONZALEZ APRN [id number] 04/14/2014 12:45:00 04/14/2014 23:59:59 CLS Outpatient JUDAH OWEN [id number] 02/14/2014 10:34:00 02/14/2014 23:59:59 CLS Outpatient SUKHDEEP LIMA DO [id number] 12/08/2013 10:04:00 12/08/2013 23:59:59 CLS Outpatient CELINA GONZALEZ APRNINA R [id number] 11/30/2013 10:53:00 11/30/2013 23:59:59 CLS Outpatient CELINA GONZALEZ APRNINA R [id number] 10/18/2013 15:40:00 10/18/2013 23:59:59 CLS Outpatient CELINA GONZALEZ APRNINA R [id number] 10/12/2013 09:00:00 10/12/2013 23:59:59 CLS Outpatient TATY PURVIS APRN [id number] 10/04/2013 10:57:00 10/04/2013 23:59:59 CLS Outpatient CELINA GONZALEZ APRNINA R [id number] 08/31/2013 10:26:00 08/31/2013 23:59:59 CLS Outpatient CELINA GONZALEZ APRNINA R [id number] 06/30/2013 13:55:00 06/30/2013 23:59:59 CLS Outpatient CELINA GONZALEZ APRNINA R [id number] 05/16/2013 09:59:00 05/16/2013 23:59:59 CLS Outpatient PAVEL ODELL PRAKASH Collins [id number] 05/06/2013 13:08:00 05/06/2013 23:59:59 CLS Outpatient LUCIANO CONRAD MD [id number] 04/29/2013 13:07:00 04/29/2013 23:59:59 CLS Outpatient LUCIANO CONRAD MD [id number] 04/07/2013 08:43:00 04/07/2013 23:59:59 CLS Outpatient LUCIANO CONRAD MD [id number] 04/01/2013 14:41:00 04/01/2013 23:59:59 CLS Outpatient LOYD NYE MD [id number] 03/18/2013 09:51:00 03/18/2013 23:59:59 CLS Outpatient LOYD NYE MD [id number] 02/11/2013 13:03:00 02/11/2013 23:59:59 CLS Outpatient LOYD NYE MD [id number] 06/23/2012 09:03:00 06/23/2012 23:59:59 CLS Outpatient [id number] 10/12/2012 15:45:00 Document Registration [id number] 10/08/2012 12:45:00 Document Registration [id number] 09/28/2012 09:28:00 Document Registration [id number] 11/27/2016 21:42:00 11/28/2016 00:35:00 DIS Emergency YIMI CORTES MD [facility] ER GENERAL WEAKNESS X3 DAYS [id number] 10/07/2016 13:15:00 10/07/2016 23:59:59 CLS Preadmit MADL, TATY L AQUATICS COORDINATOR [facility] RAD ABNORMAL CAROTID SONO R93.8 [id number] 07/03/2016 12:28:00 07/03/2016 23:59:59 CLS Outpatient MADL, TATY L AQUATICS COORDINATOR [facility] RAD RIB PAIN LEFT [id number] 05/30/2016 16:50:00 05/31/2016 11:45:00 DIS Inpatient GAGAN MOISE MD [facility] ICU HEART FAILURE [id number] 05/24/2016 17:32:00 05/24/2016 19:21:00 DIS Emergency GHULAM MCKEON TIRE GROOVER [facility] ER HIGH BS, COUGHING, CONGESTION, POSS PNEUMONIA [id number] 05/14/2016 11:00:00 05/14/2016 23:59:59 CLS Outpatient MADL, TATY L AQUATICS COORDINATOR [facility] RAD ABNORMAL CAROTID SONO [id number] 04/15/2016 11:46:00 04/15/2016 23:59:59 CLS Outpatient MADL, TATY L AQUATICS COORDINATOR [facility] RAD MEMORY LOSS [id number] 03/28/2016 09:15:00 03/28/2016 12:00:00 DIS Emergency CHIARA JOHNS MD [facility] ER FALL/RIGHT RIB PAIN [id number] 03/03/2016 07:04:00 03/03/2016 23:59:59 CLS Outpatient MADL, TATY L AQUATICS COORDINATOR [facility] RAD ABD PAIN RT LATERAL [id number] 02/19/2016 13:14:00 02/19/2016 16:50:00 DIS Emergency GHULAM MCKEON TIRE GROOVER [facility] ER RIGHT SIDE ABD PAIN [id number] 12/21/2015 16:12:00 12/21/2015 18:30:00 DIS Emergency ALBINO GALLARDO MD [facility] ER L SIDE NUMBNESS,BLURRY VISION [id number] 2015 07:24:00 2015 23:59:59 CLS Outpatient CHARLIE SUAREZ DO [facility] RT COPD,TOBACCO USE [id number] 10/09/2015 21:02:00 2015 06:00:00 DIS Outpatient TATY PURVISP [facility] SLEEP SNORING,HYPERSOMNIA, PERIODIC LIMB MOVEMENT [id number] 10/03/2015 08:56:00 10/03/2015 23:59:59 CLS Outpatient CHARLIE SUAREZ DO [facility] RAD COPD [id number] 10/09/2014 17:07:00 10/09/2014 20:57:00 DIS Emergency DALI GRAJEDA DO [facility] ER DIZZINESS POST STENT PLACEMENT [id number] 09/04/2014 10:53:00 09/04/2014 23:59:59 CLS Outpatient GAGAN MOISE MD [facility] RAD BRUIT,CAD,ROBERTO [id number] 05/26/2014 20:51:00 05/26/2014 22:00:00 DIS Emergency GHULAM MCKEON APRN [facility] ER DIARRHEA,NAUSEA,BODY ACHES ,FEVER [id number] 05/03/2014 07:56:00 05/03/2014 23:59:59 CLS Outpatient GAGAN MOISE MD [facility] CARD CAD,CP,COPD,CVA [id number] 04/26/2014 07:50:00 04/26/2014 23:59:59 CLS Outpatient GAGAN MOISE MD [facility] CARD CAD,CP,COPD [id number] 09/13/2013 12:08:00 09/13/2013 15:00:00 DIS Emergency JAMES KISER MD [facility] ER LOWER LEGS CRAMPING/ MULTIPLE COMPLAINTS [id number] 07/17/2013 17:10:00 07/18/2013 17:38:00 DIS Inpatient ANAMARIA GARCIA, LUCIANO Peterson [facility] 4TH TIA [id number] 04/26/2013 10:26:00 04/26/2013 14:43:00 DIS Emergency NAT GARCIA, CHIARA Gordillo [facility] ER FLU SYMPTOMS [id number] 04/14/2013 09:11:00 04/14/2013 23:59:59 CLS Outpatient GAGAN MOISE MD [facility] RAD CAD [id number] 03/01/2013 23:10:00 03/03/2013 11:50:00 DIS Outpatient GAGAN MOISE MD [facility] CATH CHEST PAIN [id number] 09/04/2014 10:53:00 Document Registration [id number] 02/23/2012 05:21:00 Document Registration [id number] 10/03/2010 10:17:00 Document Registration
== END 2017-07-09 14:18 | disposition home or self-care (01) ==
LOC: EDUNIT# 10:46 → ER 10:49
DX: N39.0 Urinary tract infection, site not specified (principal); J44.9 Chronic obstructive pulmonary disease, unspecified; I25.10 Atherosclerotic heart disease of native coronary artery without angina pectoris; G40.909 Epilepsy, unspecified, not intractable, without status epilepticus; E11.9 Type 2 diabetes mellitus without complications; F41.9 Anxiety disorder, unspecified; F32.9 Major depressive disorder, single episode, unspecified; Z80.3 Family history of malignant neoplasm of breast; Z82.49 Family history of ischemic heart disease and other diseases of the circulatory system; Z86.73 Personal history of transient ischemic attack (TIA), and cerebral infarction without residual deficits; Z88.8 Allergy status to other drugs, medicaments and biological substances; Z88.1 Allergy status to other antibiotic agents; Z79.82 Long term (current) use of aspirin; Z79.4 Long term (current) use of insulin; Z87.59 Personal history of other complications of pregnancy, childbirth and the puerperium; Z90.710 Acquired absence of both cervix and uterus
CPT/HCPCS: 36415; 71045; 80053; 81000; 85025; 87088; 96365

== ENCOUNTER 2018-11-07 18:42 | Emergency (ER) | payer MEDICARE, MEDICAID ==
[~2018-11-07] VITALS: Ht 157.5 cm; Wt 74.8 kg
[~2018-11-07 18:42] MED LIST changes: +CEFD300C3 PO; -CITA20TA7 PO; +CITA20TA9 PO; -ESZO1TAB11 PO; +ESZO1TAB12 PO
--- NOTE | 2018-11-07 19:17 | ED GU-Female ---
General Stated Complaint: POSS UTI/DIARRHEA/CONSTIPATION Source: patient, spouse Exam Limitations: no limitations History of Present Illness Date Seen by Provider: Nov 07, 2018 Time Seen by Provider: 19:00 Initial Comments The patient presents to ER by private conveyance with her spouse and chief complaint that for 1 month she's been having intermittent constipation and diarrhea, cloudy urine, urinary frequency and dysuria. Her is afraid she might be developing a kidney infection. They have not seen anybody about this because they have no face and her primary care providers. She has a history of diabetes and high blood pressure and his prescribed medicines however for the past month she has been out of her medicines. She does not know what medicines she takes. He is very dependent on him for care. She has a history of TIAs and a tremor which her suspects might be Parkinson's but they have not done any workup on this. She denies hematuria or history of kidney stones. She's having some generalized abdominal discomfort. She has not taken anything for the pain. She usually stays at home while her was out on the road but her and hired some family members to look in on her feet her daycare. Help keep the house clean but they were very disappointed in this care so for the past couple months she has just been out on the road with him and that is why they've not been able to keep up with getting her medications refilled. He says his medications are out as well. The use [facility]. The patient has rashes on her forearms from nervous scratching for the past couple months. She denies being out in the [place] or exposed tick bite or insect bites. No fevers chills nausea vomiting. The patient has refused any blood draws telling the nurse that, "if you stick a needle in me I am walking the F### out of here." Allergies and Home Medications Allergies Coded Allergies: clarithromycin (Verified Allergy, Unknown, 05/24/16) iodine (Verified Allergy, Unknown, 05/24/16) metformin (Verified Adverse Reaction, Unknown, 05/24/16) STATES CAUSES DIARRHEA Uncoded Allergies: TAPE (Allergy, Unknown, 04/26/14) Home Medications Albuterol Sulfate 1 Puff Puff, 2 PUFF IH Q4H PRN for COUGH/WHEEZING, (Reported) PALS PROGRAM Aspirin 325 Mg Tablet, 325 MG PO DAILY Prescribed by: GAGAN NELSON on 05/31/16 1121 Buspirone HCl 15 Mg Tablet, 15 MG PO BID, (Reported) Cefdinir 300 Mg Capsule, 300 MG PO TTWICE A DAY Prescribed by: ALBINO GALLARDO on 07/09/17 1328 Citalopram Hydrobromide 20 Mg Tablet, 20 MG PO DAILY, (Reported) Clonidine HCl 0.1 Mg Tablet, 0.1 MG PO BID, (Reported) Dicyclomine HCl 10 Mg Capsule, 10 MG PO HS, (Reported) Gabapentin 300 Mg Capsule, 600 MG PO TID, (Reported) 04-21-14 #90 REPOSITORY Insulin Glargine,Hum.rec.anlog 300 Unit/1 Ml Insuln.pen, 16 UNITS SC HS Prescribed by: MARY SHARP on 05/30/16 1748 Levofloxacin 750 Mg Tablet, 750 MG PO DAILY Prescribed by: GAGAN NELSON on 05/31/16 1121 Lisinopril 5 Mg Tablet, 5 MG PO DAILY, (Reported) 05-09-14 #90 REPOSITORY Magnesium Oxide 400 Mg Tablet, 400 MG PO DAILY Prescribed by: GHULAM MCKEON on 02/19/16 1618 Potassium Chloride 20 Meq Tablet.er, 20 MEQ PO DAILY Prescribed by: GHULAM MCKEON on 02/19/16 1618 Sulfamethoxazole/Trimethoprim 1 Each Tablet, 1 EACH PO BID Prescribed by: YIMI CORTES on 11/28/16 0019 Patient Home Medication List Home Medication List Reviewed: Yes Review of Systems Review of Systems Constitutional: No chills, No fever; malaise EENTM: No ear discharge, No ear pain, No blurred vision Respiratory: No cough, No short of breath Cardiovascular: No chest pain, No edema Gastrointestinal: abdominal pain, constipation, diarrhea, heartburn (occ); No loss of appetite, No nausea Genitourinary: denies discharge; dysuria, frequency; denies flank pain, denies hematuria Musculoskeletal: No back pain, No joint pain Skin: No pruritus Psychiatric/Neurological: Denies Headache, Denies Numbness Past Xwqpytm-Gnjoib-Silcbp Hx Patient Social History Alcohol Use: Denies Use Recreational Drug Use: No Smoking Status: Current Everyday Smoker Type Used: Cigarettes (2 ppd) Recent Foreign Travel: No Contact w/Someone Who Travel: No Recent Hopitalizations: No Immunizations Up To Date Tetanus Booster (TDap): Less than 5yrs PED Vaccines UTD: No Date of Pneumonia Vaccine: Jan 24, 2008 Date of Influenza Vaccine: Mar 02, 2013 Seasonal Allergies Seasonal Allergies: No Past Medical History Surgeries: Yes (CARDIAC CATH X 3, heel spurs, carpal tunnel) Section, Hysterectomy, Orthopedic Respiratory: Yes COPD Currently Using CPAP: Yes (doesnt use it) Currently Using BIPAP: No Cardiac: Yes (MITRAL VALVE PROLAPSE, CARDIAC CATH X 3) Coronary Artery Disease Neurological: Yes Seizure Disorder, Stroke, TIA Reproductive Disorders: No [employer] History: Hysterectomy Genitourinary: No Gastrointestinal: No Musculoskeletal: Yes Arthritis Endocrine: Yes Diabetes, Insulin dep Loss of Vision: Bilateral Hearing Impairment: Denies Cancer: No Psychosocial: Yes Anxiety, Depression Integumentary: No Blood Disorders: No Adverse Reaction/Blood Tranf: No Family Medical History Cancer 03 MOTHER (BREAST REMOVED) Congestive heart failure 03 MOTHER Family history: Cardiovascular disease 03 MOTHER Family history: Diabetes mellitus 03 MOTHER Family history: Hypertension 03 MOTHER 09 BROTHER History of - disorder 09 SISTER (HEART MURMUR) Hypercholesterolemia 03 MOTHER Stroke 03 FATHER, Onset:76 (ANEURYSM) No Pertinent Family Hx Physical Exam Vital Signs Vital Signs - First Documented 11/07/18 18:50 Temp 98.7 Pulse 73 Resp 20 B/P (MAP) 204/75 (118) Pulse Ox 97 O2 Delivery Room Air Capillary Refill : Height, Weight, BMI Height: 5'1.00" Weight: 172lbs. 8.0oz. [id number]; 30.8 BMI Method:Stated General Appearance: WD/WN, no apparent distress HEENT: PERRL/EOMI, normal ENT inspection, TMs normal, pharynx normal Neck: non-tender, full range of motion, normal inspection Cardiovascular: normal peripheral pulses, regular rate, rhythm, no edema Respiratory: lungs clear, no respiratory distress, no accessory muscle use, decreased breath sounds Gastrointestinal: normal bowel sounds, non tender, soft, no organomegaly Extremities: normal range of motion, normal capillary refill Neurologic/Psychiatric: alert, normal mood/affect, oriented x 3 Skin: normal color, warm/dry, other (healed over excoriations on her anterior dorsal forearms without erythema, discharge or evidence of infection.) Progress/Results/Core Measures Suspected Sepsis SIRS Temperature: Pulse: Respiratory Rate: Blood Pressure / Mean: Results/Orders Lab Results Laboratory Tests Test 11/07/18 19:35 Range/Units Urine Color YELLOW Urine Clarity SLIGHTLY CLOUDY Urine pH 6 5-9 Urine Specific Dwight 1.020 1.016-1.022 Urine Protein 4+ NEGATIVE Urine Glucose (UA) 4+ H NEGATIVE Urine Ketones 1+ H NEGATIVE Urine Nitrite NEGATIVE NEGATIVE Urine Bilirubin NEGATIVE NEGATIVE Urine Urobilinogen 1 NORMAL MG/DL Urine Leukocyte Esterase 1+ H NEGATIVE Urine RBC (Auto) 2+ H NEGATIVE Urine RBC 5-10 H /HPF Urine WBC 2-5 /HPF Urine Squamous Epithelial Cells 10-25 H /HPF Urine Crystals NONE /LPF Urine Bacteria FEW H /HPF Urine Casts NONE /LPF Urine Mucus NEGATIVE /LPF Urine Culture Indicated YES My Orders Orders - YIMI CORTES Ua Culture If Indicated (11/07/18 18:45) Urine Culture (11/07/18 19:35) Vital Signs/I&O 11/07/18 18:50 Temp 98.7 Pulse 73 Resp 20 B/P (MAP) 204/75 (118) Pulse Ox 97 O2 Delivery Room Air Capillary Refill : Progress Note #1: Time: 19:18 Progress Note We have discussed checking blood work but she has refused this. We'll obtain a urine specimen. The patient has a nontender, nonsurgical, nonacute abdomen on examination and her vital signs are unremarkable with the exception of a very high blood pressure. She is tearful and agitated with telling her story. We'll just observe her blood pressure. Since she's been out of her medications for over a month I do not suspect that this is new. We have offered to refill her medications until she can get to her primary care provider however she does not know what she takes. Progress Note #2: Time: 20:14 Progress Note Patient has microscopic hematuria but nothing clearly like a urinary tract infection. A culture has been obtained. We discussed possibility of interstitial cystitis or other diagnoses. Plan is to follow-up in 2 weeks with primary care to repeat a urinalysis see if there is still blood in it and plus or minus antibiotics if the culture comes back suspicious for infection. We discussed with her outpatient workup for microscopic hematuria through primary care and then urology if necessary. We have also discussed for her generalized abdominal discomfort were to try some pantoprazole for the next 2 weeks and see how that works and follow-up with primary care. She is happy with this plan and ready to go home. Departure Impression Primary Impression: Generalized abdominal discomfort Additional Impression: Microscopic hematuria Disposition: 01 HOME, SELF-CARE Condition: Stable Departure-Patient Inst. Decision time for Depature: 20:16 Referrals: [facility] (PCP/Family) Primary Care Physician Patient Instructions: Blood in the Urine (Hematuria), Adult (DC), Stomach Ache and Stomach Upset Add. Discharge Instructions: Drink plenty of fluids and use the pantoprazole one capsule daily for the next 2 weeks. Make an appointment in 1-2 weeks with primary care to repeat the urinalysis to see if the blood in your urine is persisting. If so that may be reasonable to follow up with the urologist. By the middle of next week if your urine culture looks like an infection we will call you an antibiotic. Please return to the nearest ER if you begin to experience severe pain not treatable with Tylenol or Motrin. Scripts Pantoprazole Sodium (Pantoprazole Sodium) 40 Mg Tablet. 40 MG PO DAILY for 30 Days, #30 TAB 0 Refills Prov: YIMI CORTES 11/07/18 Copy Copies To 1: SUKHDEEP LIMA DO YIMI CORTES Nov 07, 2018 19:17
[2018-11-07 19:43] LABS: BILIRUBIN,URINE NEGATIVE (NEGATIVE); CLARITY,URINE SLIGHTLY CLOUDY; COLOR,URINE YELLOW; GLUCOSE, URINE (UA) 4+ (NEGATIVE); KETONES,URINE 1+ (NEGATIVE); LEUKOCYTE ESTERASE ,URINE 1+ (NEGATIVE); NITRITE,URINE NEGATIVE (NEGATIVE); PH,URINE 6 (5-9); PROTEIN,URINE 4+ (NEGATIVE); UROBILINOGEN,URINE 1 MG/DL (NORMAL)
[2018-11-07 19:54] LABS: BACTERIA,URINE FEW /HPF
[2018-11-07] MEDS ORDERED: PANT40TA3 PO (20:21)
[2018-11-07 20:25] VITALS: BP 210/86
== END 2018-11-07 20:25 | disposition home or self-care (01) ==
LOC: EDUNIT# 18:42 → ER 18:44
DX: R10.84 Generalized abdominal pain (principal); R31.21 Asymptomatic microscopic hematuria; J44.9 Chronic obstructive pulmonary disease, unspecified; I25.10 Atherosclerotic heart disease of native coronary artery without angina pectoris; G40.909 Epilepsy, unspecified, not intractable, without status epilepticus; E11.9 Type 2 diabetes mellitus without complications; F41.9 Anxiety disorder, unspecified; F32.9 Major depressive disorder, single episode, unspecified; F17.210 Nicotine dependence, cigarettes, uncomplicated; Z98.890 Other specified postprocedural states; Z80.3 Family history of malignant neoplasm of breast; Z82.49 Family history of ischemic heart disease and other diseases of the circulatory system; Z90.710 Acquired absence of both cervix and uterus; Z95.9 Presence of cardiac and vascular implant and graft, unspecified; Z88.1 Allergy status to other antibiotic agents; Z91.041 Radiographic dye allergy status; Z88.8 Allergy status to other drugs, medicaments and biological substances; Z86.73 Personal history of transient ischemic attack (TIA), and cerebral infarction without residual deficits; Z79.82 Long term (current) use of aspirin; Z79.4 Long term (current) use of insulin
CPT/HCPCS: 81000; 87088; 99282

== ENCOUNTER 2019-01-10 01:04 | Emergency (ER) | payer MEDICARE, MEDICAID ==
[~2019-01-10] VITALS: Ht 157.5 cm; Wt 70.8 kg
[~2019-01-10 01:04] MED LIST changes: +PANT40TA3 PO
[2019-01-10 01:33] VITALS: BP 171/92
[2019-01-10] MEDS ORDERED: PROP20TA5 (01:46)
[2019-01-10] MEDS ORDERED: SITA50TA (01:46)
[2019-01-10] MEDS ORDERED: ALBU18HF2 (01:46)
[2019-01-10] MEDS ORDERED: TRAZ-222 (01:46)
--- NOTE | 2019-01-10 02:15 | NUR ---
LAB IN TO DO BLOOD DRAW.
[2019-01-10 02:24] LABS: BASOPHILS % (AUTO) 0 % (0-10); EOSINOPHILS # (AUTO) 0.2 10^3/uL (0.0-0.3); EOSINOPHILS % (AUTO) 2 % (0-10); HEMATOCRIT 31 % (35-52); HEMOGLOBIN 10.6 G/DL (11.5-16.0); LYMPHOCYTES # (AUTO) 2.7 X 10^3 (1.0-4.0); LYMPHOCYTES % (AUTO) 28 % (12-44); MEAN CORPUSCULAR HEMOGLOBIN 28 PG (25-34); MEAN CORPUSCULAR HGB CONC 34 G/DL (32-36); MEAN CORPUSCULAR VOLUME 82 FL (80-99); MEAN PLATELET VOLUME 10.2 FL (7.4-10.4); MONOCYTES # (AUTO) 0.6 X 10^3 (0.0-1.0); MONOCYTES % (AUTO) 7 % (0-12); NEUTROPHILS % (AUTO) 63 % (42-75); PLATELET COUNT 345 10^3/uL (130-400); RED CELL DISTRIBUTION WIDTH 16.5 % (10.0-14.5); WHITE BLOOD COUNT 9.5 10^3/uL (4.3-11.0)
[2019-01-10 02:32] LABS: INR 0.9 (0.8-1.4); PROTHROMBIN TIME PATIENT 12.2 SEC (12.2-14.7)
--- NOTE | 2019-01-10 02:32 | NUR ---
Patient signed out AMA.
--- NOTE | 2019-01-10 02:33 | NUR ---
PT STATED SHE WAS TIRED OF WAITING ET. WANTED TO LEAVE
[2019-01-10 02:42] LABS: ALANINE AMINOTRANSFERASE < 6 U/L (0-55); ALBUMIN 2.9 GM/DL (3.2-4.5); ALKALINE PHOSPHATASE 100 U/L (40-136); AMYLASE 42 U/L (25-125); BILIRUBIN,TOTAL 0.3 MG/DL (0.1-1.0); BUN/CREATININE RATIO 7; CALCIUM 8.2 MG/DL (8.5-10.1); CARBON DIOXIDE 33 MMOL/L (21-32); CHLORIDE 94 MMOL/L (98-107); CREATININE SERUM 1.49 MG/DL (0.60-1.30); GFR ESTIMATED 36; GLUCOSE 177 MG/DL (70-105); LIPASE 55 U/L (8-78); MAGNESIUM 1.2 MG/DL (1.6-2.4); SODIUM 139 MMOL/L (135-145); TOTAL PROTEIN 6.6 GM/DL (6.4-8.2)
[2019-01-10 02:57] LABS: POTASSIUM 2.3 MMOL/L (3.6-5.0)
== END 2019-01-10 02:33 | disposition left against medical advice (07) ==
LOC: EDUNIT# 01:04 → ER 01:06
DX: R10.84 Generalized abdominal pain (principal)
CPT/HCPCS: 36415; 80053; 80320; 82150; 83690; 83735; 85025; 85610; 85730; 99281